=== PATIENT | female | born 1965 | race Caucasian/White ===

== ENCOUNTER 2017-04-21 11:30 | Inpatient (IN) | payer BC ==
[2017-05-04] MEDS ORDERED: Midazolam HCl 2 mg/2 ml Vial ONE (07:29)
[2017-05-04] MEDS ORDERED: Dexamethasone 4 mg/ml Vial ONE (07:29)
[2017-05-04] MEDS ORDERED: Fentanyl 100 MCG/2 ML VIAL ONE ×6 (07:29→14:28)
[2017-05-04] MEDS ORDERED: Ketorolac Tromethamine 30 MG/ML VIAL ONE (09:17)
[2017-05-04] MEDS ORDERED: Ondansetron HCl/PF 4 MG/2 ML Vial ONE (09:17)
[2017-05-04] MEDS ORDERED: PHENYLEPHRINE-NS 100 MCG/ML 10 ML SYRINGE ONE (09:17)
[2017-05-04] MEDS ORDERED: Propofol 200 MG/20 ML VIAL ONE (09:17)
[2017-05-04] MEDS ORDERED: Dexamethasone 20 MG/5 ML VIAL ONE (09:17)
[2017-05-04] MEDS ORDERED: Glycopyrrolate 0.2 MG/ML 5 ML SYRINGE ONE (09:17)
[2017-05-04] MEDS ORDERED: Meperidine HCl/PF 25 MG/ML VIAL SLOW IVP PRN (11:34)
[2017-05-04] MEDS ORDERED: Promethazine HCl 25 MG/ML VIAL SLOW IVP PRN (11:34)
[2017-05-04] MEDS ORDERED: D5 1/2 NS w/20 mEq KCL 1,000 ML ONE (13:24)
[2017-05-04] MEDS ORDERED: Dextrose 5% in Water 1,000 ML IV PRN (13:48)
[2017-05-04] MEDS ORDERED: Promethazine HCl 25 MG/ML VIAL IM PRN (13:48)
[2017-05-04] MEDS ORDERED: Dextrose 50% Abboject 50 ML SYRINGE SLOW IVP PRN (13:48)
[2017-05-04] MEDS ORDERED: Ondansetron HCl/PF 4 MG/2 ML Vial IVP PRN (13:48)
[2017-05-04] MEDS ORDERED: Fentanyl 100 MCG/2 ML VIAL SLOW IVP PRN (13:48)
[2017-05-04 16:56] VITALS: BMI 28.5
[2017-05-04] MEDS ORDERED: Pantoprazole 40 MG VIAL IVP SCH (17:30)
[2017-05-04] MEDS: Acetaminophen 1,000 MG in Premix Bag 1 BAG IVPB SCH ×3 (17:45→23:40)
[2017-05-04] MEDS: D5 1/2 NS w/20 mEq KCL 1,000 ML IV SCH (17:45)
[2017-05-04] MEDS: Enoxaparin Sodium 40 MG/0.4 ML SYRINGE SC SCH (20:17)
[2017-05-04] MEDS: Ketorolac Tromethamine 30 MG/ML VIAL IVP PRN (20:17)
[2017-05-04] MEDS: Fentanyl 100 MCG/2 ML VIAL SLOW IVP PRN ×2 (20:18→23:40)
[2017-05-05] MEDS: Mag-Al Plus 1200 MG/1200 MG/120 MG/30 ML UDCUP PO PRN (00:15)
[2017-05-05] MEDS: Ketorolac Tromethamine 30 MG/ML VIAL IVP PRN (03:41)
[2017-05-05] MEDS: Fentanyl 100 MCG/2 ML VIAL SLOW IVP PRN ×2 (03:42→06:43)
[2017-05-05 06:43] LABS: #Lymphocytes 1.1 thou/uL (1.20-3.40); #Monocytes 0.7 thou/uL (0.11-0.59); #Neutrophils 15.3 thou/uL (1.40-6.50); %Basophils 0.1 % (0.0-1.0); %Lymphocytes 6.5 % (21.0-51.0); Hematocrit 34.5 % (36.0-47.0); Red Blood Cell (RBC) Count 3.68 mill/uL (4.20-5.40); White Blood Cell (WBC) Count 17.1 thou/uL (4.8-10.8)
[2017-05-05] MEDS: Acetaminophen 1,000 MG in Premix Bag 1 BAG IVPB SCH (06:43)
[2017-05-05] MEDS: Loratadine 10 MG TAB PO SCH (06:50)
[2017-05-05 06:57] LABS: Anion Gap 9 mmol/L (10-20); BUN (Urea Nitrogen) 8 mg/dL (9.8-20.1); Calc. Creatinine Clearance 105 mL/min (70-130); Calcium 8.4 mg/dL (7.8-10.44); Carbon Dioxide 23 mmol/L (22-29); Chloride 110 mmol/L (98-107); Estimated GFR-MDRD 82
[2017-05-05] MEDS ORDERED: HYDROcodone/Acetaminophen 10/325 mg Tablet PO PRN (09:29)
[2017-05-05] MEDS ORDERED: traMADol HCl 50 MG TAB PO PRN (09:30)
[2017-05-05] MEDS ORDERED: D5 1/2 NS w/20 mEq KCL 1,000 ML IV SCH (09:31)
[2017-05-05] MEDS: Pantoprazole 40 MG VIAL IVP SCH (09:45)
[2017-05-05] MEDS: HYDROcodone/Acetaminophen 10/325 mg Tablet PO PRN ×4 (10:23→23:26)
--- NOTE | 2017-05-05 11:03 | PRG ---
DATE OF SERVICE: 05/05/2017 SUBJECTIVE: Postop day #1 left colectomy. Ms. Carrizales is complaining of 6/10 pain. She denies nause a. She is ambulatory. Her catheter is out and she has urinated on her own. OBJECTIVE: VITAL SIGNS: She is afebrile, pulse 76, respirations 18, and blood pressure 117/76. ABDOMEN: Soft, appropriately tender. Wounds are healing well, no evidence of infection. LABORATORY DATA: White blood cell count of 17, hemoglobin of 11, normal differential. Sodium 138, potassium 4.4, and creatinine 0.74. ASSESSMENT: Postoperative day #1 left colectomy. PLAN: Advance to full liquid diet this evening, add Elizabeth for pain, lower IV fluid rate.
[2017-05-05] MEDS: D5 1/2 NS w/20 mEq KCL 1,000 ML IV SCH ×2 (12:37)
[2017-05-05] MEDS: Enoxaparin Sodium 40 MG/0.4 ML SYRINGE SC SCH (20:14)
[2017-05-05] MEDS: diphenhydrAMINE HCl 25 MG CAP PO PRN (23:48)
[2017-05-06] MEDS: traMADol HCl 50 MG TAB PO PRN ×2 (02:40→08:34)
[2017-05-06] MEDS: Mag-Al Plus 1200 MG/1200 MG/120 MG/30 ML UDCUP PO PRN (05:44)
[2017-05-06] MEDS: HYDROcodone/Acetaminophen 10/325 mg Tablet PO PRN (05:44)
[2017-05-06] MEDS: Pantoprazole 40 MG VIAL IVP SCH (08:24)
[2017-05-06] MEDS: Loratadine 10 MG TAB PO SCH (08:24)
[2017-05-06 08:46] VITALS: BP 107/72; TEMP 98.2
[2017-05-06] MEDS: diphenhydrAMINE HCl 25 MG CAP PO PRN (10:32)
--- NOTE | 2017-05-06 11:59 | DIS ---
DATE OF ADMISSION: 05/04/2017 DATE OF DISCHARGE: 05/06/2017 ADMIT DIAGNOSIS: Chronic diverticulitis. DISCHARGE DIAGNOSIS: Chronic diverticulitis. PROCEDURE: Laparoscopic left colectomy by Dr. Whiting without complication. CONDITION AT DISCHARGE: Improved. STAFF: Dr. Bart Whiting. HOSPITAL COURSE: On 05/06/2017, patient tolerated full liquid diet, ambulatory, urinating on her ow n without difficulty. She is discharged to home. Prescriptions given for tramadol and Prichard, and s he will follow up in my office in 2 weeks.
--- NOTE | 2017-05-09 11:27 | OP ---
DATE OF PROCEDURE: 05/04/2017 PREOPERATIVE DIAGNOSIS: Chronic sigmoid diverticulitis. POSTOPERATIVE DIAGNOSIS: Chronic sigmoid diverticulitis. PROCEDURES: 1. Laparoscopic left colectomy with low pelvic anastomosis. 2. Laparoscopic mobilization of splenic flexure. SURGEON: Bart Whiting M.D. ANESTHESIA: General. ESTIMATED BLOOD LOSS: Minimal. COMPLICATIONS: None. SPECIMEN: Left colon. INDICATION: The patient is a 51-year-old female who presents with chronic pain from chronic diverti culitis. She underwent mechanical and antibiotic bowel prep. Risks and benefits of surgery were di scussed. She gave consent. TECHNIQUE: The patient was taken to the operating room and placed supine on the operating room tabl e. After general anesthetic was obtained, a Momin catheter was placed. The abdomen was prepped and draped in a sterile fashion. Left subcostal 5 mm Optiview trocar was placed in the usual fashion a nd high-flow pneumoperitoneum was obtained. A right lower quadrant 12 mm port was placed under dire ct visualization. A 5 mm camera port was placed to the right of the umbilicus. Suprapubic 5 mm por t was placed as well. The small bowel was rotated out of the pelvis. The peritoneum was opened on the medial aspect of the sigmoid colon at the base of the inferior mesenteric artery. The ureter wa s found through the window made in the mesentery and excluded from the dissection. The peritoneum w as taken all the way down into the pelvis and the upper rectum was mobilized. The colon was flipped over and the lateral attachments were taken down as well. The base of the inferior mesenteric esau ry was taken using a fire of the laparoscopic stapling device with a white load. The laparoscopic s tapler was fired across the upper rectum. The colon was flipped up and the mobilization of the sple loc flexure was performed. All lateral attachments were taken. The greater omentum was taken off t he transverse colon in the usual fashion. This allowed the upper left colon to reach down in the pe lvis under no tension. Location was found that had no ischemia to the colon. Incision was made in the left lower quadrant of approximately 3 cm in length. Muscle splitting incision was performed in to the abdomen. The Michael small wound retractor was placed. The left colon was able to be brought up through this wound and location was marked for the anvil placement. Colotomy was made distally and the 31 anvil was passed proximally. Stapler was fired across just proximal to the colotomy. Th e sharp pin on the anvil was then able to be manipulated out the antimesenteric surface of the colon above. The left colon specimen was sent to path for final diagnosis. The upper segment was droppe d back into the abdomen and high-flow pneumoperitoneum was reestablished. The upper left colon with the anvil in place was able to be dropped down into the pelvis under no tension. The base for the EEA was brought up through the anus and its sharp pin brought out on the antimesenteric surface of t he rectum below, connected to the sharp pin from above, and the stapler was tightened down and fired forming the anastomosis. The anastomosis was tested under saline and an air insufflation without e vidence of leakage. Two good rings of tissue were obtained in the stapler. All port sites were inf iltrated using local anesthetic. The 12-mm trocar at the right lower quadrant was closed using GraN ee needle and 0 Vicryl tie. All ports were removed under camera visualization. Pneumoperitoneum wa s let down. The muscle splitting incision in the left lower quadrant was closed anteriorly and post eriorly using PDS suture. This incision was irrigated using a liter of sterile solution and a Pulsa vac. The surgeon and faculty research assistant changed gown and gloves before the fascia was to be closed. All inci sions were irrigated and closed using 4-0 Monocryl and Dermabond. The patient was en route to [facility] in stable condition. All instrument counts, needle counts, and lap counts were correct.
--- NOTE | 2017-05-11 17:02 | HP ---
CHIEF COMPLAINT: Severe lower abdominal pain. HISTORY: The patient is a 51-year-old female one week status post laparoscopic sigmoid colectomy fo r recurrent diverticulitis. She says since surgery she has been feeling bad, but has been getting w orse. She is having low grade fevers, some nausea, no vomiting. Last meal was few bites at 9 a.m. She drank some water with CT. She just had a CT scan of the abdomen and pelvis showing a large zev stomotic leak. She is here for diversion. PAST MEDICAL HISTORY: Migraine headaches, esophageal reflux, low vitamin D, hyperlipidemia. PAST SURGICAL HISTORY: Tonsillectomy and total abdominal hysterectomy. MEDICATIONS: Zyrtec, Zantac, Estrace, Bentyl, Maxalt, alprazolam. SOCIAL HISTORY: She is , no tobacco or alcohol. ALLERGIES: She is allergic to CODEINE. PHYSICAL EXAMINATION: GENERAL: She is awake, alert, and looks very uncomfortable. HEENT: Mucous membranes are little bit dry. LUNGS: Clear. HEART: Regular rate and rhythm. ABDOMEN: Distended and tender in the lower abdomen. She has about a 6 cm incision in left lower qu adrant. No evidence of infection. She has a 2 cm incision on the right lower quadrant and another one at the umbilicus in the left upper quadrant. ASSESSMENT: Anastomotic leak with pelvic abscess. PLAN: Attempted laparoscopic drainage of pelvic abscess with diverting loop ileostomy. CONSENT: I have discussed the planned procedure as well as risk of bleeding, infection, injury to b owel, bladder, need to open. She understands and gives informed consent.
== END 2017-05-06 11:20 | disposition home or self-care (01) | DRG 331 ==
LOC: SURG A 05-04 07:00
PROVIDERS: ADMIT Surgery; ATTEND Surgery
PROC: 0DTG4ZZ Resection of Left Large Intestine, Percutaneous Endoscopic Approach (ICD-10-PCS; principal; 2017-05-04)
DX: K57.32 Diverticulitis of large intestine without perforation or abscess without bleeding (principal); Z88.5 Allergy status to narcotic agent; Z82.49 Family history of ischemic heart disease and other diseases of the circulatory system
CPT/HCPCS: 36415; 36416; 80048; 85025; 88307; C9113; J0131; J0694; J1100; J1650; J1885; J2250; J2405; J2704; J3010; J7050

== ENCOUNTER 2017-05-11 16:01 | Inpatient (IN) | payer BC ==
[2017-05-11] MEDS ORDERED: Promethazine HCl 25 MG/ML VIAL SLOW IVP SCH (16:15)
[2017-05-11] MEDS ORDERED: Promethazine HCl 25 MG/ML VIAL ONE (16:32)
[2017-05-11 17:01] LABS: #Eosinphils 0.1 thou/uL (0.0-0.7); #Monocytes 1.9 thou/uL (0.11-0.59); #Neutrophils 10.6 thou/uL (1.40-6.50); %Basophils 0.2 % (0.0-1.0); %Lymphocytes 13.8 % (21.0-51.0); %Monocytes 12.7 % (0.0-10.0); Hematocrit 31.7 % (36.0-47.0); Mean Platelet Volume 5.9 fL (7.4-10.4); Red Blood Cell (RBC) Count 3.36 mill/uL (4.20-5.40); White Blood Cell (WBC) Count 14.7 thou/uL (4.8-10.8)
[2017-05-11] MEDS ORDERED: Bupivacaine HCl 0.5%/Epinephrine 1:200,000/PF 30 ml Vial ONE (17:05)
[2017-05-11] MEDS ORDERED: Fentanyl 100 MCG/2 ML VIAL ONE ×2 (17:12→19:55)
[2017-05-11 17:20] LABS: ALT (SGPT) 43 U/L (8-55); AST (SGOT) 38 U/L (5-34); Alkaline Phosphatase 160 U/L (40-150); Anion Gap 14 mmol/L (10-20); BUN (Urea Nitrogen) 8 mg/dL (9.8-20.1); Bilirubin, Total 0.5 mg/dL (0.2-1.2); Calc. Creatinine Clearance 0 mL/min (70-130); Calcium 8.5 mg/dL (7.8-10.44); Carbon Dioxide 24 mmol/L (22-29); Chloride 101 mmol/L (98-107); Estimated GFR-MDRD 89; Globulin 3.2 g/dL (2.4-3.5); Protein, Total 6.3 g/dL (6.0-8.3)
[2017-05-11] MEDS ORDERED: Ondansetron HCl/PF 4 MG/2 ML Vial ONE (18:01)
[2017-05-11] MEDS ORDERED: PHENYLEPHRINE-NS 100 MCG/ML 10 ML SYRINGE ONE (18:01)
[2017-05-11] MEDS ORDERED: Succinylcholine Chloride 20 MG/ML 10 ml SYRINGE FS ONE (18:01)
[2017-05-11] MEDS ORDERED: Lidocaine 2% PF 10 ML AMP (For Epidural Use) ONE (18:01)
[2017-05-11] MEDS ORDERED: Propofol 200 MG/20 ML VIAL ONE (18:01)
[2017-05-11] MEDS ORDERED: Glycopyrrolate 0.2 MG/ML 5 ML SYRINGE ONE (18:01)
[2017-05-11] MEDS ORDERED: Midazolam HCl 2 mg/2 ml Vial ONE (18:21)
[2017-05-11] MEDS ORDERED: Ondansetron HCl/PF 4 MG/2 ML Vial IVP PRN ×2 (19:22→19:27)
[2017-05-11] MEDS ORDERED: Promethazine HCl 25 MG/ML VIAL IM PRN ×2 (19:22→19:27)
[2017-05-11] MEDS ORDERED: Zolpidem Tartrate 5 MG TAB PO PRN (19:27)
[2017-05-11] MEDS ORDERED: Naloxone HCl 0.4 mg/ml Vial IV PRN (19:27)
[2017-05-11] MEDS ORDERED: diphenhydrAMINE HCl 50 MG/ML 1 ML VIAL IVP PRN (19:27)
[2017-05-11] MEDS ORDERED: Fentanyl 5000 MCG/250 ML CADD IVPB PRN (19:27)
[2017-05-11] MEDS ORDERED: diphenhydrAMINE HCl 25 MG CAP PO PRN (19:27)
[2017-05-11] MEDS ORDERED: Promethazine HCl 25 MG/ML VIAL SLOW IVP PRN (19:27)
[2017-05-11] MEDS ORDERED: diphenhydrAMINE HCl 50 MG/ML 1 ML VIAL IM PRN (19:27)
[2017-05-11] MEDS ORDERED: Communication Order-Pharmacy FS SCH (19:30)
[2017-05-11] MEDS ORDERED: Fentanyl 20 MCG/ML 250 ML ONE (19:47)
[2017-05-11] MEDS: Famotidine/PF 20 mg/2ml Vial SLOW IVP SCH (21:01)
[2017-05-11] MEDS: Famotidine 20 MG TAB PO SCH (21:01)
[2017-05-11] MEDS: D5 1/2 NS w/20 mEq KCL 1,000 ML IV SCH (21:01)
[2017-05-11 21:24] VITALS: BMI 26.6
--- NOTE | 2017-05-11 22:24 | OP ---
PREOPERATIVE DIAGNOSIS: Anastomotic leak with pelvic abscess. SURGEON: Sarabjit Thomas M.D. PROCEDURE PERFORMED: Diagnostic laparoscopy, laparoscopic drainage of pelvic abscess with diverting loop ileostomy. INDICATIONS: A 51-year-old female who is 1-week status post laparoscopic sigmoid colon resection fo r recurrent diverticulitis. She had progressive pelvic pain and low grade fevers. She had a CT sca n this morning that showed an abscess with contrast extravasating into the abscess. FINDINGS: Mixed abscess both along the left gutter and pelvis containing thick purulent fluid. Cul tures were obtained. PROCEDURE IN DETAIL: After informed consent was obtained, the patient was taken to the operating ro om and given general endotracheal anesthesia. She was placed in the supine position. Her abdomen w as prepped and draped in the usual fashion. Local anesthesia infiltrated subcutaneously and deep an d a 5-mm incision was performed in the left upper quadrant. Veress needle inserted. Drop test perf ormed. Pneumoperitoneum was created to a volume of 2 liters of carbon dioxide. Utilizing a bladele ss 5-mm trocar and 0-degree laparoscope, direct visual entry in the abdominal cavity was performed. Pneumoperitoneum was created to a pressure of 15 mmHg. The patient placed in Trendelenburg positio n and 2 other 5-mm ports were placed, one right lower quadrant, one suprapubic. The adhesions were taken down along the left lower quadrant revealing a yellow creamy purulent fluid, which was aspirat ed and sent for culture. The cavity was completely unroofed and irrigated and irrigation fluid john milagros. A definite anastomosis could not be defined as there was quite a bit of inflammation in the ar ea. The small bowel was run to define the terminal ileum. At this point, a 19-Bulgarian round drain w as placed along the left gutter and placed into the pelvis, brought out through a stab wound on left side, this was sutured in place. Then the terminal ileum was grasped with the atraumatic grasper a nd brought up to the abdominal wall. The skin incision was enlarged and the muscle and subcutaneous divided to allow prolapse of the ileum and ileal loop. The ileal loop was then secured to the ante rior fascia with interrupted 3-0 Vicryls. Prior to opening the bowel, the two 5-mm ports were close d with an interrupted 4-0 Rapide. Dermabond applied. Then the bowel loop was divided transversely and matured with interrupted 3-0 Vicryl suture. A wafer applied then the bag applied. The patient tolerated the procedure well and transferred to recovery in good condition. Sponge and needle count verified correct x2.
[2017-05-11] MEDS: Piperacillin/Tazobactam 3.375 GM in Sodium Chloride 0.9% 100 ML IVPB SCH (23:31)
[2017-05-11] MEDS: Ketorolac Tromethamine 30 MG/ML VIAL IVP SCH (23:31)
[2017-05-11] MEDS: Acetaminophen 1,000 MG in Premix Bag 1 BAG IVPB SCH (23:31)
[2017-05-11] MEDS: Ondansetron HCl/PF 4 MG/2 ML Vial IVP PRN (23:31)
[2017-05-12] MEDS: Ketorolac Tromethamine 30 MG/ML VIAL IVP SCH ×4 (04:53→23:58)
[2017-05-12] MEDS: Acetaminophen 1,000 MG in Premix Bag 1 BAG IVPB SCH ×3 (04:53→17:50)
[2017-05-12] MEDS: D5 1/2 NS w/20 mEq KCL 1,000 ML IV SCH ×3 (04:53→21:25)
[2017-05-12] MEDS: Piperacillin/Tazobactam 3.375 GM in Sodium Chloride 0.9% 100 ML IVPB SCH ×4 (04:53→23:58)
[2017-05-12 05:17] LABS: #Lymphocytes 1.2 thou/uL (1.20-3.40); #Monocytes 1.2 thou/uL (0.11-0.59); #Neutrophils 8.9 thou/uL (1.40-6.50); %Basophils 0.3 % (0.0-1.0); %Eosinophils 0.3 % (0.0-10.0); %Lymphocytes 10.1 % (21.0-51.0); %Monocytes 10.4 % (0.0-10.0); Hematocrit 34.8 % (36.0-47.0); Mean Platelet Volume 6.5 fL (7.4-10.4); Red Blood Cell (RBC) Count 3.66 mill/uL (4.20-5.40); White Blood Cell (WBC) Count 11.3 thou/uL (4.8-10.8)
[2017-05-12 05:34] LABS: Anion Gap 12 mmol/L (10-20); BUN (Urea Nitrogen) 7 mg/dL (9.8-20.1); Calc. Creatinine Clearance 108 mL/min (70-130); Calcium 7.8 mg/dL (7.8-10.44); Carbon Dioxide 21 mmol/L (22-29); Chloride 104 mmol/L (98-107); Estimated GFR-MDRD 86
[2017-05-12] MEDS: Famotidine/PF 20 mg/2ml Vial SLOW IVP SCH ×2 (08:21→21:12)
[2017-05-12] MEDS ORDERED: Enoxaparin Sodium 40 MG/0.4 ML SYRINGE SC SCH (09:00)
[2017-05-12] MEDS ORDERED: Sodium Chloride 0.9% 1,000 ML IV SCH (09:30)
[2017-05-12] MEDS: Famotidine 20 MG TAB PO SCH ×2 (09:52→21:13)
[2017-05-12] MEDS: Enoxaparin Sodium 40 MG/0.4 ML SYRINGE SC SCH (10:16)
--- NOTE | 2017-05-12 10:41 | PRG ---
DATE OF SERVICE: 05/12/2017 The patient is postoperative day 1, drainage of pelvic abscess with diverting loop ileostomy. She i s having a lot of pain. The pain is about a 7/10, but she is not using her PRODUCT SUPPORT REPRESENTATIVE because her blood pr essure is low. She does feel a little lightheaded when she sits or stands up. She denies nausea. PHYSICAL EXAMINATION: VITAL SIGNS: Temperature is 98.7, pulse 102, blood pressure 97/64. GENERAL: She is awake, looks a little fatigued. HEENT: Otherwise unremarkable. LUNGS: Lungs are clear. HEART: Regular rate and rhythm. ABDOMEN: The abdomen is a little bit distended. The ostomy is viable and looks healthy. There is some serosanguinous fluid in the bag, a little bit of air. The incision is otherwise okay. : Her Momin put out a liter. She has had 320 mL out her drain. LABORATORY: White count is 11.3, down from 14, H\T\H 11 and 34, platelet count 464. Electrolytes s how a low CO2 of 21, her BUN is 7, creatinine 0.7, glucose 157. Microbiology; there are gram negative rods and non-hemolytic Streptococcus in the gram stain. ASSESSMENT: 1. Volume depletion. 2. Ileus. PLAN: Fluid bolus, ambulate. She can have ice chips.
[2017-05-12] MEDS: Ondansetron HCl/PF 4 MG/2 ML Vial IVP PRN (14:11)
[2017-05-12] MEDS: Promethazine HCl 25 MG/ML VIAL IM PRN (14:17)
[2017-05-13 04:55] LABS: #Eosinphils 0.1 thou/uL (0.0-0.7); #Lymphocytes 1.5 thou/uL (1.20-3.40); #Monocytes 1.2 thou/uL (0.11-0.59); #Neutrophils 10.3 thou/uL (1.40-6.50); %Basophils 0.2 % (0.0-1.0); %Eosinophils 0.9 % (0.0-10.0); %Lymphocytes 11.2 % (21.0-51.0); %Monocytes 9.1 % (0.0-10.0); Hematocrit 30.5 % (36.0-47.0); Mean Platelet Volume 6.4 fL (7.4-10.4); Red Blood Cell (RBC) Count 3.17 mill/uL (4.20-5.40); White Blood Cell (WBC) Count 13.1 thou/uL (4.8-10.8)
[2017-05-13 05:20] LABS: Anion Gap 10 mmol/L (10-20); BUN (Urea Nitrogen) 10 mg/dL (9.8-20.1); Calc. Creatinine Clearance 110 mL/min (70-130); Calcium 7.6 mg/dL (7.8-10.44); Carbon Dioxide 23 mmol/L (22-29); Chloride 107 mmol/L (98-107); Estimated GFR-MDRD 88
[2017-05-13] MEDS: Piperacillin/Tazobactam 3.375 GM in Sodium Chloride 0.9% 100 ML IVPB SCH ×4 (06:23→22:55)
[2017-05-13] MEDS: D5 1/2 NS w/20 mEq KCL 1,000 ML IV SCH ×3 (06:23→17:27)
[2017-05-13] MEDS: Ketorolac Tromethamine 30 MG/ML VIAL IVP SCH ×3 (06:23→17:26)
[2017-05-13] MEDS: Famotidine/PF 20 mg/2ml Vial SLOW IVP SCH ×2 (07:49→19:41)
[2017-05-13] MEDS: Enoxaparin Sodium 40 MG/0.4 ML SYRINGE SC SCH (07:50)
[2017-05-13] MEDS: Famotidine 20 MG TAB PO SCH (09:16)
[2017-05-13] MEDS: Promethazine HCl 25 MG/ML VIAL IM PRN (19:41)
[2017-05-14] MEDS: Famotidine 20 MG TAB PO SCH ×3 (02:25→23:31)
[2017-05-14] MEDS: Ketorolac Tromethamine 30 MG/ML VIAL IVP SCH (02:25)
[2017-05-14] MEDS: D5 1/2 NS w/20 mEq KCL 1,000 ML IV SCH ×3 (04:11→23:33)
[2017-05-14] MEDS: Piperacillin/Tazobactam 3.375 GM in Sodium Chloride 0.9% 100 ML IVPB SCH ×3 (06:15→19:18)
[2017-05-14] MEDS: Promethazine HCl 25 MG/ML VIAL IM PRN ×2 (09:19→22:01)
[2017-05-14] MEDS: Famotidine/PF 20 mg/2ml Vial SLOW IVP SCH ×2 (09:24→20:41)
[2017-05-14] MEDS: Enoxaparin Sodium 40 MG/0.4 ML SYRINGE SC SCH (09:44)
[2017-05-14] MEDS: Ondansetron HCl/PF 4 MG/2 ML Vial IVP PRN (11:42)
[2017-05-14] MEDS ORDERED: Sodium Chloride 0.9% 1,000 ML IV SCH (12:15)
--- NOTE | 2017-05-14 12:18 | OP ---
PREOPERATIVE DIAGNOSES: Ileus, malnutrition. SURGEON: Sarabjit Thomas M.D. PROCEDURE PERFORMED: Right subclavian central line placement. INDICATIONS: The patient is a 51-year-old female who has been n.p.o. for over a week after having s urgery for diverticulitis, complicated bile leak. She needs IV access for nutrition. FINDINGS: Arterial stick left subclavian. Good backflow of venous blood, right subclavian. J-wire threaded easily. DESCRIPTION OF THE PROCEDURE: After informed consent was obtained, the patient was taken to OR, kleber angela in some Trendelenburg position. Her skin was prepped and draped in the usual fashion. Local an esthesia infiltrated subcutaneously and deep. Introducer needle inserted. Arterial stick hit on th e left side, moved to the right side. Good backflow of venous blood. J-wire threaded easily. The skin incised. The dilator used. Pre-flushed triple lumen catheter inserted over the wire. The wir e was removed. Each of the ports aspirated. Good backflow of venous blood, flushed with saline. S utured in place with interrupted 3-0 silk. Sterile bandage applied. The patient tolerated the proc edure well. Chest x-ray obtained.
--- NOTE | 2017-05-14 14:13 | RAD ---
CHEST 1 VIEW: Date: 05/14/17 HISTORY: Central line placement. COMPARISON: None. FINDINGS: Central venous catheter is in place with tip in the inferior SVC. There are lingular and right middl e lobe linear opacities. There are dilated loops of bowel in the upper abdomen. Radiopacities project over the upper abdomen. IMPRESSION: 1. Central venous catheter tip at the cavoatrial junction. 2. Linear opacities both lungs may represent scarring or atelectasis. 3. Granuloma right upper lobe. 4. Dilated loops of bowel in the upper abdomen with radiopacities projecting over the upper abdomen . Recommend correlation with recent CT examination. If there are none, follow-up CT is recommended. POS: LOKI
[2017-05-14] MEDS ORDERED: Acetaminophen 1,000 MG in Premix Bag 1 BAG IVPB PRN (16:03)
[2017-05-14] MEDS ORDERED: FLU VACC QS2017-18 36 mo. & older 0.5 ML SYRINGE IM ONE (16:45)
[2017-05-14] MEDS: Multivitamins, Adult 10 ML, Multitrace-5 5 ML in D30W-AA 10% with Lytes 2,000 ML, Fat E... IV SCH (22:02)
[2017-05-15] MEDS: Piperacillin/Tazobactam 3.375 GM in Sodium Chloride 0.9% 100 ML IVPB SCH ×4 (00:17→18:21)
[2017-05-15 05:12] LABS: #Basophils 0.1 thou/uL (0.0-0.2); #Eosinphils 0.1 thou/uL (0.0-0.7); #Lymphocytes 2.1 thou/uL (1.20-3.40); #Monocytes 1.3 thou/uL (0.11-0.59); #Neutrophils 7.5 thou/uL (1.40-6.50); %Basophils 0.5 % (0.0-1.0); %Eosinophils 0.6 % (0.0-10.0); %Lymphocytes 19.4 % (21.0-51.0); %Monocytes 11.5 % (0.0-10.0); Hematocrit 27.9 % (36.0-47.0); Red Blood Cell (RBC) Count 2.95 mill/uL (4.20-5.40); White Blood Cell (WBC) Count 10.9 thou/uL (4.8-10.8)
[2017-05-15 05:34] LABS: Anion Gap 9 mmol/L (10-20); BUN (Urea Nitrogen) 4 mg/dL (9.8-20.1); Calc. Creatinine Clearance 124 mL/min (70-130); Carbon Dioxide 25 mmol/L (22-29); Chloride 109 mmol/L (98-107); Estimated GFR-MDRD Greater than 90
[2017-05-15] MEDS: D5 1/2 NS w/20 mEq KCL 1,000 ML IV SCH ×2 (08:07→09:24)
--- NOTE | 2017-05-15 08:18 | PRG ---
DATE OF SERVICE: 05/15/2017 SUBJECTIVE: Ms. Carrizales has no more nausea. She has been ambulatory this morning. She is urinating on her own without the Momin catheter. OBJECTIVE: VITAL SIGNS: T-max 99.8, pulse 101, respirations 16, blood pressure 108/74. Urine output is adequa te, ostomy output 550 for the day. ABDOMEN: Soft. Wounds are healing well. Drain output is purulent. She has some stool in her bag. Her ostomy mucosa is pink. LABORATORY DATA: White blood cell count is 10, hemoglobin 9, platelets are 526, creatinine is 0.62. ASSESSMENT: Status post washout, drain placement, ileostomy for anastomotic leak. PLAN: Continue TPN until more bowel function, probably we are going to take another 48-72 hours. E ncouraged ambulation. Continue Zosyn.
[2017-05-15] MEDS: Enoxaparin Sodium 40 MG/0.4 ML SYRINGE SC SCH (09:23)
[2017-05-15] MEDS: Famotidine/PF 20 mg/2ml Vial SLOW IVP SCH ×2 (09:23→21:44)
[2017-05-15] MEDS: Famotidine 20 MG TAB PO SCH (09:43)
[2017-05-15] MEDS: Multivitamins, Adult 10 ML, Multitrace-5 5 ML in D30W-AA 10% with Lytes 2,000 ML, Fat E... IV SCH (22:00)
[2017-05-16] MEDS: Piperacillin/Tazobactam 3.375 GM in Sodium Chloride 0.9% 100 ML IVPB SCH ×5 (00:01→23:18)
[2017-05-16] MEDS: Famotidine 20 MG TAB PO SCH ×3 (05:41→20:04)
[2017-05-16] MEDS: D5 1/2 NS w/20 mEq KCL 1,000 ML IV SCH ×3 (05:42→17:49)
[2017-05-16] MEDS: Famotidine/PF 20 mg/2ml Vial SLOW IVP SCH ×2 (09:53→20:03)
[2017-05-16] MEDS: Enoxaparin Sodium 40 MG/0.4 ML SYRINGE SC SCH (10:03)
[2017-05-16] MEDS ORDERED: Clopidogrel Bisulfate 75 MG TAB ONE (10:10)
[2017-05-16] MEDS ORDERED: Fluconazole In NaCl,Iso-Osm 200 MG in Premix Bag 1 BAG IVPB SCH ×2 (12:00)
[2017-05-16] MEDS ORDERED: Loratadine 10 MG TAB PO SCH (13:30)
[2017-05-16] MEDS: Acetaminophen 1,000 MG in Premix Bag 1 BAG IVPB PRN ×2 (14:02→20:03)
--- NOTE | 2017-05-16 14:19 | PQF ---
Date: 05-16-17 ATTN: DR. JUSTIN GOMEZ Please exercise your independent, professional judgment in responding to the clarification form. Clinical indicators are provided on the bottom of this form for your review Please check appropriate box(s): [ ] Protein Calorie Malnutrition: [ ] Mild [ ] Moderate [ ] Severe [ ] Other Malnutrition (please specify) __ [ ] Cachexia [ ] Other diagnosis [ ] Unable to determine In addition, please specify: Present on Admission (POA): [ ] Yes [ ] No [ ] Unable to determine CLINICAL INDICATORS - SIGNS / SYMPTOMS / LABS BMI: 26.6 ALBUMIN 05-11-17: 3.[address] MURRAY 05-14-17: ILEUS, MALNUTRITION OP NOTE DR. MURRAY 05-14-17: THE PATIENT IS A 51 YEAR OLD FEMALE WHO HAS BEEN NPO FOR OVER A WEEK AFTER HAVING SURGERY FOR DIVERTICULITIS, COMPLICATED BILE LEAK, SHE NEEDS IV ACCESS FOR NUTRITION. RISK FACTORS: OP NOTE DR. MURRAY 05-14-17: THE PATIENT IS A 51 YEAR OLD FEMALE WHO HAS BEEN NPO FOR OVER A WEEK AFTER HAVING SURGERY FOR DIVERTICULITIS, COMPLICATED BILE LEAK, SHE NEEDS IV ACCESS FOR NUTRITION. TREATMENT: *OP NOTE DR. MURRAY 05-14-17: THE PATIENT IS A 51 YEAR OLD FEMALE WHO HAS BEEN NPO FOR OVER A WEEK AFTER HAVING SURGERY FOR DIVERTICULITIS, COMPLICATED BILE LEAK, SHE NEEDS IV ACCESS FOR NUTRITION. *PN DR. GOMEZ 05-15-17: CONTINUE TPN UNTIL MORE BOWEL FUNCTION (This form is maintained as a part of the permanent medical record) 2014 [employer] All Rights Reserved [email or web address] [email or web address] Office: [phone] [facility]
[2017-05-16] MEDS: Multivitamins, Adult 10 ML, Multitrace-5 5 ML in D30W-AA 10% with Lytes 2,000 ML, Fat E... IV SCH (21:53)
[2017-05-17] MEDS: D5 1/2 NS w/20 mEq KCL 1,000 ML IV SCH ×3 (03:30→18:53)
[2017-05-17] MEDS: Acetaminophen 1,000 MG in Premix Bag 1 BAG IVPB PRN ×2 (04:30→10:37)
[2017-05-17] MEDS: Piperacillin/Tazobactam 3.375 GM in Sodium Chloride 0.9% 100 ML IVPB SCH ×4 (06:06→23:32)
[2017-05-17] MEDS: Famotidine/PF 20 mg/2ml Vial SLOW IVP SCH ×2 (08:31→20:51)
[2017-05-17] MEDS: Loratadine 10 MG TAB PO SCH (08:31)
[2017-05-17] MEDS: Enoxaparin Sodium 40 MG/0.4 ML SYRINGE SC SCH (09:11)
[2017-05-17] MEDS: Famotidine 20 MG TAB PO SCH ×2 (09:45→20:51)
--- NOTE | 2017-05-17 10:46 | PRG ---
DATE OF SERVICE: 05/17/2017 SUBJECTIVE: Ms. Carrizales is doing well. She has less abdominal pain and bloating, no nausea. PHYSICAL EXAMINATION: VITAL SIGNS: She is afebrile. Her pulse is down to 82 this morning, blood pressure is 113/79, stoo l 120. ABDOMEN: All wounds are healing well. She does have some bowel sounds. She has stool and air in h er ostomy bag. ASSESSMENT: History of left colectomy for chronic diverticulitis complicated by anastomotic leak, n ow status post washout, drain placement, and ileostomy. PLAN: Will allow for clear liquids today. Her pulse is trending down. Continue to encourage mobil ization.
[2017-05-17] MEDS ORDERED: Acetaminophen 1,000 MG in Premix Bag 1 BAG IVPB PRN (17:16)
[2017-05-17] MEDS: Multivitamins, Adult 10 ML, Multitrace-5 5 ML in D30W-AA 10% with Lytes 2,000 ML, Fat E... IV SCH (21:55)
[2017-05-18] MEDS: D5 1/2 NS w/20 mEq KCL 1,000 ML IV SCH ×3 (02:09→19:21)
[2017-05-18 04:22] LABS: ALT (SGPT) 30 U/L (8-55); AST (SGOT) 25 U/L (5-34); Alkaline Phosphatase 136 U/L (40-150); Anion Gap 10 mmol/L (10-20); BUN (Urea Nitrogen) 12 mg/dL (9.8-20.1); Bilirubin, Total 0.5 mg/dL (0.2-1.2); Calc. Creatinine Clearance 130 mL/min (70-130); Calcium 8.4 mg/dL (7.8-10.44); Carbon Dioxide 26 mmol/L (22-29); Chloride 103 mmol/L (98-107); Estimated GFR-MDRD Greater than 90; Globulin 3.3 g/dL (2.4-3.5); Phosphorus 3.1 mg/dL (2.3-4.7); Protein, Total 6.1 g/dL (6.0-8.3)
[2017-05-18] MEDS: Piperacillin/Tazobactam 3.375 GM in Sodium Chloride 0.9% 100 ML IVPB SCH ×4 (06:23→23:32)
[2017-05-18] MEDS: Loratadine 10 MG TAB PO SCH (09:27)
[2017-05-18] MEDS: Famotidine 20 MG TAB PO SCH ×2 (09:27→20:27)
[2017-05-18] MEDS: Famotidine/PF 20 mg/2ml Vial SLOW IVP SCH (09:27)
[2017-05-18] MEDS ORDERED: HYDROcodone/Acetaminophen 10/325 mg Tablet PO PRN (09:40)
[2017-05-18] MEDS ORDERED: Fentanyl 100 MCG/2 ML VIAL SLOW IVP PRN ×2 (09:41)
--- NOTE | 2017-05-18 09:56 | PRG ---
DATE OF SERVICE: 05/18/2017 Ms. Carrizales is doing well, tolerated clear liquid. She has no nausea. She is ambulatory. VITAL SIGNS: She is afebrile. Her pulse is trending down into the 80s-100 now instead of 100-115, blood pressure is stable. Good urine output ostomy did put out much yesterday. There is some mucusy more solid stool in her b ag this morning. She does have active bowel sounds. Her wounds are healing well. Her IVETTE drain is becoming more serous. ASSESSMENT: Postop laparoscopic washout, drain placement, ileostomy for anastomotic leak. PLAN: Advance to full liquid diet today. Continue TPN today. If tolerates fulls will discontinue t hat tomorrow. Restart oral pain control.
[2017-05-18] MEDS: Enoxaparin Sodium 40 MG/0.4 ML SYRINGE SC SCH (10:36)
[2017-05-18] MEDS: HYDROcodone/Acetaminophen 10/325 mg Tablet PO PRN ×3 (11:44→22:16)
--- NOTE | 2017-05-18 12:45 | PQF ---
DATE: 05-18-17 ATTN: DR. JUSTIN GOMEZ Please exercise your independent, professional judgment in responding to the clarification form. Clinical indicators are provided on the bottom of this form for your review Please check appropriate box(s): [ ] Sepsis due to: [ ] Localized infection without sepsis [ ] Other diagnosis [ ] Unable to determine In addition, please specify: Present on Admission (POA): [ ] Yes [ ] No [ ] Unable to determine For continuity of documentation, please document condition throughout progress notes and discharge summary. Thank You. CLINICAL INDICATORS - SIGNS / SYMPTOMS / LABS WBC: 05-11-17: 14.7 GLUCOSE: 05-12-17: 157 TEMP: 05-14-17: 99.9 05-15-17: 99.8, 100.1 PULSE: 05-14-17: 110 05-15-17: 109 05-16-17: 115 05-11-17: OP NOTE: FINDINGS- MIXED ABSCESS BOTH ALONG THE LEFT GUTTER AND PELVIS CONTAINING THICK PURULENT FLUID. CULTURES OBTAINED. CULTURE 05-11-17- E COLI ANAEROBIC GRAM NEGATIVE PRINCESS RISK FACTORS: 05-11-17: OP NOTE: FINDINGS- MIXED ABSCESS BOTH ALONG THE LEFT GUTTER AND PELVIS CONTAINING THICK PURULENT FLUID. CULTURES OBTAINED. H&P: RECURRENT DIVERTICULITIS -ANASTOMOTIC LEAK WITH PELVIC ABSCESS TREATMENTS: *PELVIC ABSCESS CULTURES 05-11-17: E COLI ANAEROBIC GRAM NEGATIVE PRINCESS *DAILY CBC'S *(05-11-17) ZOSYN, LEVAQUIN ( 05-13-17) (This form is maintained as a part of the permanent medical record) [employer]. All Rights Reserved [email or web address] [email or web address] Office: [phone] [facility]
[2017-05-18] MEDS: Multivitamins, Adult 10 ML, Multitrace-5 5 ML in D30W-AA 10% with Lytes 2,000 ML, Fat E... IV SCH (22:36)
[2017-05-19] MEDS: HYDROcodone/Acetaminophen 10/325 mg Tablet PO PRN ×6 (02:21→22:39)
[2017-05-19] MEDS: D5 1/2 NS w/20 mEq KCL 1,000 ML IV SCH (03:13)
[2017-05-19] MEDS: Piperacillin/Tazobactam 3.375 GM in Sodium Chloride 0.9% 100 ML IVPB SCH ×4 (05:30→23:39)
[2017-05-19 06:23] LABS: ALT (SGPT) 30 U/L (8-55); AST (SGOT) 33 U/L (5-34); Alkaline Phosphatase 151 U/L (40-150); Anion Gap 8 mmol/L (10-20); BUN (Urea Nitrogen) 14 mg/dL (9.8-20.1); Bilirubin, Total 0.4 mg/dL (0.2-1.2); Calc. Creatinine Clearance 124 mL/min (70-130); Calcium 8.3 mg/dL (7.8-10.44); Carbon Dioxide 28 mmol/L (22-29); Chloride 106 mmol/L (98-107); Estimated GFR-MDRD Greater than 90; Globulin 3.2 g/dL (2.4-3.5); Magnesium 2.1 mg/dL (1.6-2.6); Phosphorus 3.4 mg/dL (2.3-4.7)
[2017-05-19] MEDS ORDERED: Milk Of Magnesia 30 ML UDCUP PO ONE (07:38)
--- NOTE | 2017-05-19 08:10 | PRG ---
DATE OF SERVICE: 05/19/2017 SUBJECTIVE: Ms. Carrizales is doing well. She is tolerating the full liquid diet. She is ambulatory. Her pain is better controlled. PHYSICAL EXAMINATION: VITAL SIGNS: Afebrile, vital signs are stable. ABDOMEN: Soft. She is leasing machine tender in the area of the large incision in the left lower quadrant, b ut there is no evidence of wound infection. She has a small amount of stool in her bag. ASSESSMENT: Resolving ileus status post anastomotic leak after left colectomy for diverticulitis. PLAN: Advance diet today and discontinue TPN and continue antibiotics. We will give one dose of mi lk of magnesia now, continue ostomy teaching, likely discharge home tomorrow.
[2017-05-19] MEDS: Loratadine 10 MG TAB PO SCH (09:24)
[2017-05-19] MEDS: Famotidine 20 MG TAB PO SCH ×2 (09:24→20:46)
[2017-05-19] MEDS: Enoxaparin Sodium 40 MG/0.4 ML SYRINGE SC SCH ×2 (09:26→11:10)
[2017-05-19 23:49] VITALS: TEMP 98.5
[2017-05-20] MEDS: HYDROcodone/Acetaminophen 10/325 mg Tablet PO PRN ×2 (03:05→07:02)
[2017-05-20] MEDS: Piperacillin/Tazobactam 3.375 GM in Sodium Chloride 0.9% 100 ML IVPB SCH (06:08)
[2017-05-20 06:46] LABS: ALT (SGPT) 30 U/L (8-55); AST (SGOT) 35 U/L (5-34); Alkaline Phosphatase 175 U/L (40-150); Anion Gap 11 mmol/L (10-20); BUN (Urea Nitrogen) 11 mg/dL (9.8-20.1); Bilirubin, Total 0.6 mg/dL (0.2-1.2); Calc. Creatinine Clearance 113 mL/min (70-130); Calcium 8.4 mg/dL (7.8-10.44); Carbon Dioxide 27 mmol/L (22-29); Chloride 101 mmol/L (98-107); Estimated GFR-MDRD Greater than 90; Globulin 3.4 g/dL (2.4-3.5); Phosphorus 3.4 mg/dL (2.3-4.7); Protein, Total 6.2 g/dL (6.0-8.3)
--- NOTE | 2017-05-20 08:25 | DIS ---
DATE OF ADMISSION: 05/11/2017 DATE OF DISCHARGE: 05/20/2017 ADMISSION DIAGNOSES: 1. Status post low anterior resection for chronic diverticulitis complicated by anastomotic leak. 2. Pelvic abscess. POSTOPERATIVE DIAGNOSES: 1. Status post low anterior resection for chronic diverticulitis complicated by anastomotic leak. 2. Pelvic abscess. PROCEDURES: Laparoscopic pelvic washout, drain placement and diverting loop ileostomy by Dr. Thomas without complication. HOSPITAL COURSE: The patient was admitted when she was found to have postop pelvic abscess. Dr. Valentine quinteros took her to the operating room. She underwent washout and ileostomy. Postop, she had slight de lay in return of bowel function, so a central line and TPN was started, slowly her diet was advanced . Slowly, her tachycardia and fevers resolved. She grew out Enterococcus, Klebsiella and E. coli a nd her abdominal aspirate. On the day of discharge, she is doing well. She is tolerating regular d iet. She is to be discharged to home. Ostomy teaching has been performed. Prescriptions for Augme ntin and Levaquin were sent to her pharmacy. Already, she has prescription for pain medicine and na usea medicine at home. Hand written prescription for Lomotil and ostomy supplies given to the meghan munguia. She will follow up with me in 1 week.
[2017-05-20 08:29] VITALS: BP 120/82
[2017-05-20] MEDS: Famotidine 20 MG TAB PO SCH (09:13)
[2017-05-20] MEDS: Enoxaparin Sodium 40 MG/0.4 ML SYRINGE SC SCH (09:13)
[2017-05-20] MEDS: Loratadine 10 MG TAB PO SCH (09:13)
== END 2017-05-20 10:40 | disposition home or self-care (01) | DRG 857 ==
LOC: SDC 16:01 → SURG B 19:22
PROVIDERS: ADMIT Surgery; ATTEND Surgery
PROC: 0D1B4Z4 Bypass Ileum to Cutaneous, Percutaneous Endoscopic Approach (ICD-10-PCS; principal; 2017-05-11)
PROC: 0W9J40Z Drainage of Pelvic Cavity with Drainage Device, Percutaneous Endoscopic Approach (ICD-10-PCS; 2017-05-11)
PROC: 05H533Z Insertion of Infusion Device into Right Subclavian Vein, Percutaneous Approach (ICD-10-PCS; 2017-05-14)
DX: T81.4XXA Infection following a procedure, initial encounter (principal); K91.30 Postprocedural intestinal obstruction, unspecified as to partial versus complete; E46 Unspecified protein-calorie malnutrition; K91.89 Other postprocedural complications and disorders of digestive system; B96.1 Klebsiella pneumoniae [K. pneumoniae] as the cause of diseases classified elsewhere; Z87.19 Personal history of other diseases of the digestive system; Z90.49 Acquired absence of other specified parts of digestive tract; B95.2 Enterococcus as the cause of diseases classified elsewhere; B96.20 Unspecified Escherichia coli [E. coli] as the cause of diseases classified elsewhere; K68.11 Postprocedural retroperitoneal abscess; N73.9 Female pelvic inflammatory disease, unspecified; J30.9 Allergic rhinitis, unspecified; G43.909 Migraine, unspecified, not intractable, without status migrainosus; K21.9 Gastro-esophageal reflux disease without esophagitis; M85.80 Other specified disorders of bone density and structure, unspecified site; E55.9 Vitamin D deficiency, unspecified; E78.5 Hyperlipidemia, unspecified; Z88.5 Allergy status to narcotic agent; Z68.26 Body mass index [BMI] 26.0-26.9, adult
CPT/HCPCS: 36415; 36416; 71010; 80048; 80053; 83735; 84100; 85025; 87070; 87077; 87186; 87205; 90471; 90682; G0008; J0131; J0670; J0694; J1450; J1650; J1885; J1956; J2001; J2250; J2270; J2405; J2543; J2550; J2704; J3010; J7050; Q2036; S0028

== ENCOUNTER 2017-06-26 08:37 | Outpatient (CLI) | payer BC ==
--- NOTE | 2017-06-26 14:02 | RAD ---
BARIUM ENEMA SOLID COLUMN: Date: 06/26/17 HISTORY: 50-year-old female with diverticulitis. Status post chronic resection and ileostomy. Exam requested to evaluate the sigmoid anastomosis leak prior to reversal of ileostomy. FINDINGS: A contrast enema was performed under fluoroscopy with Gastrografin. There is unobstructed retrograde flow of contrast through the colon and into the cecum and appendix. There is contrast opacification in the left lower quadrant from the anastomosis. There are a few sca ttered colonic diverticula. Contrast is also seen in a portion of the terminal ileum and moving into the ileostomy in the right lower quadrant. IMPRESSION: 1. Anastomotic leak of the sigmoid colon in the left lower quadrant. 2. Colonic diverticulosis. 3. Patent right lower quadrant ileostomy. Discussed over the telephone with Dr. Whiting at 1038 hours. CODE CR. POS: ALEJANDRO
[2017-06-26] MEDS ORDERED: MD-Gastroview 120 ML BOT ONE (15:51)
== END 2017-06-26 08:38 | disposition home or self-care (01) ==
LOC: RAD 08:37
PROVIDERS: ATTEND Surgery
DX: K94.13 Enterostomy malfunction (principal); K57.30 Diverticulosis of large intestine without perforation or abscess without bleeding
CPT/HCPCS: 74270

== ENCOUNTER 2017-07-27 09:00 | Outpatient (CLI) | payer BC ==
--- NOTE | 2017-07-27 12:27 | CT ---
CT PELVIS WITH IV CONTRAST: 07/27/2017 HISTORY: Ileostomy dysfunction. Possible leak. History of hysterectomy as well as colon resection. COMPARISON: Gastrografin enema on 06/26/2017. FINDINGS: There is contrast seen in the rectum and proximal sigmoid colon; however, no contrast is seen within the visualized lower descending colon. There is contrast seen in the visualized cecum and proximal a scending colon. The exact etiology for contrast in the colon is uncertain, given that contrast is no t seen in the descending colon. Findings could be related to contrast extending to this region due t o rectal contrast, although no apparent contrast is seen in the descending colon. There is a small a mount of free fluid in the pelvis, but there is no fluid collection or free intraperitoneal gas seen on this exam. The visualized loops of small bowel are normal in caliber. There is a right lower ashly drant ileostomy present. There is herniation of fat into the defect, and the greatest transverse dim ension of the defect for the ostomy is 4.5 cm. The urinary bladder is incompletely distended but otherwise normal in appearance. There is evidence of a prior hysterectomy. Osseous structures are intact. IMPRESSION: 1. Post surgical changes of the pelvis with radiopaque suture material seen, incompletely imaged wit hin the left lower quadrant. 2. Small amount of free fluid in the pelvis, which is overall nonspecific. There is no defined flui d collection to suggest an abscess. No free intraperitoneal gas is identified. No extravasation of contrast is seen, but only a small amount of contrast was able to be administered. 3. Ostomy in the right lower quadrant related to the patient's ileostomy. There are loops of small bowel seen within the defect, and this may be related to two separate loops of small bowel extending to the ostomy defect. The ostomy defect measures 4.5 cm, and there is herniation of mesenteric fat i nto the defect. 4. Contrast in the ascending colon. The patient was administered rectal contrast during the examina tion, but no contrast was seen in the visualized descending colon. However, this may be related to c ontrast that has extended to the ascending colon. 5. Hysterectomy. POS: [facility]
== END 2017-07-27 09:01 | disposition home or self-care (01) ==
LOC: CT 09:00
PROVIDERS: ATTEND Surgery
DX: K94.13 Enterostomy malfunction (principal); Z98.890 Other specified postprocedural states
CPT/HCPCS: 72193

== ENCOUNTER 2017-07-28 13:47 | Outpatient (CLI) | payer BC ==
[2017-07-28 14:41] LABS: #Eosinphils 0.1 thou/uL (0.0-0.7); #Lymphocytes 2.5 thou/uL (1.20-3.40); #Monocytes 0.6 thou/uL (0.11-0.59); #Neutrophils 4.4 thou/uL (1.40-6.50); %Basophils 0.5 % (0.0-1.0); %Eosinophils 1.8 % (0.0-10.0); %Lymphocytes 32.3 % (21.0-51.0); %Monocytes 7.9 % (0.0-10.0); Hematocrit 38.2 % (36.0-47.0); Mean Platelet Volume 7.2 fL (7.4-10.4); Red Blood Cell (RBC) Count 4.29 mill/uL (4.20-5.40); White Blood Cell (WBC) Count 7.6 thou/uL (4.8-10.8)
[2017-07-28 15:15] LABS: Anion Gap 12 mmol/L (10-20); BUN (Urea Nitrogen) 14 mg/dL (9.8-20.1); Calc. Creatinine Clearance 0 mL/min (70-130); Carbon Dioxide 27 mmol/L (22-29); Chloride 103 mmol/L (98-107); Estimated GFR-MDRD 77
== END 2017-07-28 13:48 | disposition home or self-care (01) ==
LOC: LABBT 13:47
PROVIDERS: ATTEND Surgery
DX: Z01.812 Encounter for preprocedural laboratory examination (principal); K94.13 Enterostomy malfunction
CPT/HCPCS: 80048; 85025

== ENCOUNTER 2017-07-28 17:00 | Inpatient (IN) | payer BC ==
[2017-07-31] MEDS ORDERED: Ondansetron HCl/PF 4 MG/2 ML Vial ONE (09:52)
[2017-07-31] MEDS ORDERED: Dexamethasone 20 MG/5 ML VIAL ONE (09:52)
[2017-07-31] MEDS ORDERED: ePHEDrine/0.9% NaCl/PF SYRINGE 50 mg/10 ml ONE (09:52)
[2017-07-31] MEDS ORDERED: Glycopyrrolate 0.2 MG/ML 5 ML SYRINGE ONE (09:52)
[2017-07-31] MEDS ORDERED: PROPOFOL 200 MG/20 ML VIAL ONE (09:52)
[2017-07-31] MEDS ORDERED: Lidocaine 1% PF 5 ML VIAL ONE (09:52)
[2017-07-31] MEDS ORDERED: PHENYLEPHRINE-NS 100 MCG/ML 10 ML SYRINGE ONE (09:52)
[2017-07-31] MEDS ORDERED: CEFAZOLIN/Water 2 GM/20 ML SYRINGE ONE (13:36)
[2017-07-31] MEDS ORDERED: Midazolam HCl 2 mg/2 ml Vial ONE ×2 (14:54→15:13)
[2017-07-31] MEDS ORDERED: Fentanyl 250 MCG/5 ML VIAL ONE (15:13)
[2017-07-31] MEDS ORDERED: HYDROmorphone 2 MG/ML VIAL SLOW IVP PRN (15:51)
[2017-07-31] MEDS ORDERED: Promethazine HCl 25 MG/ML VIAL IM PRN (15:51)
[2017-07-31] MEDS ORDERED: Ondansetron HCl/PF 4 MG/2 ML Vial IVP PRN ×2 (15:51→18:55)
[2017-07-31] MEDS ORDERED: Promethazine HCl 25 MG/ML VIAL SLOW IVP PRN (15:51)
[2017-07-31 16:57] LABS: Bilirubin Negative (Negative); Blood, Urine Negative (Negative); Clarity CLEAR (Clear); Glucose, Urine (Dipstick) Negative (Negative); Leukocyte Negative (Negative); Nitrite Negative (Negative); Protein, Urine (Dipstick) Negative (Neg-Trace); Specific Gravity, Urine 1.012 (1.002-1.036); Urobilinogen 0.2 mg/dL (0.2-1.0)
[2017-07-31 16:58] LABS: Bacteria/HPF None Seen HPF (None Seen); Hyaline Casts/LPF 0-3 HYALINE CAST LPF (0-3 Hyaline); Pathc Cast-AUWi Flag 0.27 (0-2.49); RBC/HPF None Seen HPF (0-3); Squamous Epithelial 0-3 HPF (0-3); WBC/HPF None Seen HPF (0-3)
[2017-07-31] MEDS ORDERED: D5 1/2 NS w/20 mEq KCL 1,000 ML ONE (17:14)
[2017-07-31] MEDS ORDERED: HYDROmorphone 0.5 MG/0.5 ML SYRINGE ONE (18:04)
[2017-07-31] MEDS ORDERED: hydrALAZINE 20 MG/ML VIAL SLOW IVP PRN (18:55)
[2017-07-31] MEDS ORDERED: Ketorolac Tromethamine 30 MG/ML VIAL IVP PRN (18:55)
[2017-07-31] MEDS ORDERED: Fentanyl 100 MCG/2 ML VIAL SLOW IVP PRN (18:55)
--- NOTE | 2017-07-31 19:09 | OP ---
DATE OF SURGERY: 07/31/2017 PREOPERATIVE DIAGNOSES: History of left colectomy for chronic diverticulitis complicated by anastomo tic leak, status post loop ileostomy and drain placement. POSTOPERATIVE DIAGNOSES: History of left colectomy for chronic diverticulitis complicated by anastom otic leak, status post loop ileostomy and drain placement. PROCEDURE: Ileostomy takedown with small-bowel resection and anastomosis. SURGEON: Bart Whiting M.D. ANESTHESIA: General. ESTIMATED BLOOD LOSS: Minimal. COMPLICATIONS: None. SPECIMEN: Small bowel. INDICATION: The patient is a 51-year-old female, who presents after left colectomy for chronic diver ticulitis and stricture. Postop course was complicated by anastomotic leak. She underwent a loop il eostomy and drain placement. Immediate postoperative barium enema showed a small residual leak. Fol lowup CT with rectal contrast shows no ongoing leak. PROCEDURE IN DETAIL: She was taken to the operating room and laid supine on the operating table. Af ter general anesthetic was obtained, the abdomen was shaved, prepped, and draped in a sterile fashion . The mucosa was ellipsed out in the right lower quadrant. Cautery dissected down along the level o f the small bowel all the way to the opening in the fascia. All posterior adhesions were taken down. The small-bowel loop proximal and distal was able to be brought up under no tension. HANSEL-75 was fi red across the small bowel proximal and distal to the skin mucosa. The mesentery was taken using Vinnie ly clamps and silk ties. A [id number]-dk-[id number] anastomosis was performed in an antimesenteric fashion using HANSEL-75 stapler. The common enterotomy was closed using TA-60. Crotches and corners are oversewn us ing silk suture. The anastomosis was placed back into the abdominal cavity. The posterior fascia wa s closed using #1 PDS, anterior fascia using #1 PDS. Subcutaneous tissues were irrigated copiously u sing sterile solution. The skin was closed loosely using a pursestring of Prolene. A Morris was le ft in the middle of the wound. Sterile dressings were placed. The patient was en route to recovery in stable condition. All instrument counts, needle counts, and lap counts were correct.
[2017-07-31] MEDS: Fentanyl 100 MCG/2 ML VIAL SLOW IVP PRN ×2 (20:08→22:53)
[2017-07-31] MEDS: D5 1/2 NS w/20 mEq KCL 1,000 ML IV SCH (20:10)
[2017-07-31] MEDS: Acetaminophen 1,000 MG in Premix Bag 1 BAG IVPB SCH (20:14)
[2017-07-31] MEDS: Enoxaparin Sodium 40 MG/0.4 ML SYRINGE SC SCH (20:16)
[2017-07-31] MEDS: Famotidine 20 MG TAB PO SCH (20:17)
[2017-07-31] MEDS: Famotidine/PF 20 mg/2ml Vial SLOW IVP SCH (20:30)
[2017-07-31] MEDS: STERILE WATER SLOW IVP SCH (22:46)
[2017-07-31] MEDS: CEFOXITIN SLOW IVP SCH (22:46)
[2017-07-31 23:17] VITALS: BMI 27.4
[2017-08-01] MEDS: Fentanyl 100 MCG/2 ML VIAL SLOW IVP PRN ×6 (02:22→18:00)
[2017-08-01] MEDS: Acetaminophen 1,000 MG in Premix Bag 1 BAG IVPB SCH ×2 (02:24→08:45)
[2017-08-01] MEDS: CEFOXITIN SLOW IVP SCH (05:02)
[2017-08-01] MEDS: STERILE WATER SLOW IVP SCH (05:02)
[2017-08-01 05:28] LABS: #Monocytes 0.3 thou/uL (0.11-0.59); #Neutrophils 10.5 thou/uL (1.40-6.50); %Eosinophils 0.1 % (0.0-10.0); %Lymphocytes 8.6 % (21.0-51.0); %Monocytes 2.2 % (0.0-10.0); %Neutrophils 89.1 % (42.0-75.0); Hemoglobin 11.9 g/dL (12.0-16.0); Mean Corpuscular HGB CONC 32.3 g/dL (32.0-36.0); Mean Corpuscular Hemoglobin 28.6 pg (27.0-31.0); Mean Corpuscular Volume 88.6 fl (81.0-99.0); Mean Platelet Volume 7.1 fL (7.4-10.4); Platelet Count 334 thou/uL (130-400); RBC Distribution Width 13.3 % (11.5-14.5); Red Blood Cell (RBC) Count 4.15 mill/uL (4.20-5.40); White Blood Cell (WBC) Count 11.8 thou/uL (4.8-10.8)
[2017-08-01 05:32] LABS: Anion Gap 11 mmol/L (10-20); BUN (Urea Nitrogen) 7 mg/dL (9.8-20.1); Calc. Creatinine Clearance 105 mL/min (70-130); Calcium 9.3 mg/dL (7.8-10.44); Carbon Dioxide 25 mmol/L (22-29); Chloride 105 mmol/L (98-107); Estimated GFR-MDRD 86; Glucose 146 mg/dL (70-105); Potassium 4.4 mmol/L (3.5-5.1); Sodium 137 mmol/L (136-145)
[2017-08-01] MEDS: D5 1/2 NS w/20 mEq KCL 1,000 ML IV SCH (06:45)
[2017-08-01] MEDS: Famotidine 20 MG TAB PO SCH ×2 (08:45→20:32)
[2017-08-01] MEDS: Famotidine/PF 20 mg/2ml Vial SLOW IVP SCH (08:46)
[2017-08-01] MEDS ORDERED: HYDROcodone/Acetaminophen 10/325 mg Tablet PO PRN (09:15)
--- NOTE | 2017-08-01 09:44 | PRG ---
DATE OF SERVICE: 08/01/2017 SUBJECTIVE: Postop day #1, ileostomy takedown. Ms. Carrizales is complaining of pain and needing the fen tanyl quite a bit. PHYSICAL EXAMINATION: VITAL SIGNS: She is afebrile, pulse 75, blood pressure 115/73, O2 sat 93%. She is voiding regularly . ABDOMEN: Soft. Dressings have some serosanguineous drainage. Abdomen otherwise is appropriately te nder. LABORATORY DATA: White blood cell count is 11, hemoglobin 11, creatinine 0.71. ASSESSMENT: Postoperative day #1 ileostomy takedown. PLAN: Full liquids for dinner, if nausea. If no nausea, add Carter for pain. Hep-Lock IV fluids.
[2017-08-01] MEDS: HYDROcodone/Acetaminophen 10/325 mg Tablet PO PRN ×3 (10:59→20:00)
[2017-08-01] MEDS: Cetirizine HCl 10 MG TAB PO SCH (11:00)
[2017-08-01] MEDS: Enoxaparin Sodium 40 MG/0.4 ML SYRINGE SC SCH (20:31)
[2017-08-02] MEDS: HYDROcodone/Acetaminophen 10/325 mg Tablet PO PRN ×6 (01:01→22:08)
[2017-08-02] MEDS: Cetirizine HCl 10 MG TAB PO SCH (08:43)
[2017-08-02] MEDS: Famotidine 20 MG TAB PO SCH ×2 (08:43→20:56)
--- NOTE | 2017-08-02 14:14 | PRG ---
DATE OF SERVICE: 08/02/2017 SUBJECTIVE: Ms. Carrizales is postop day #2 ileostomy takedown. Denies nausea, doing well, not had a bow el movement, not passing gas. She does feel rumbling. PHYSICAL EXAMINATION: VITAL SIGNS: She is afebrile. Vital signs are stable. ABDOMEN: Minimally distended. She has active bowel sounds. Her Morris drain is removed. There is no evidence of infection. The wound was redressed. ASSESSMENT: Postop day #2 ileostomy takedown. PLAN: Milk of magnesium today, await bowel function, likely home tomorrow.
[2017-08-02] MEDS ORDERED: Milk Of Magnesia 30 ML UDCUP PO SCH (14:30)
[2017-08-02] MEDS: Enoxaparin Sodium 40 MG/0.4 ML SYRINGE SC SCH (20:56)
[2017-08-03] MEDS: Promethazine HCl 25 MG/ML VIAL IM PRN ×4 (03:29→20:19)
[2017-08-03] MEDS: Famotidine 20 MG TAB PO SCH ×2 (08:35→21:06)
[2017-08-03] MEDS: Cetirizine HCl 10 MG TAB PO SCH (08:35)
[2017-08-03] MEDS ORDERED: Acetaminophen 1,000 MG in Premix Bag 1 BAG IVPB PRN (09:05)
[2017-08-03] MEDS ORDERED: Bisacodyl 10 MG SUPP PR SCH ×2 (09:15→16:00)
--- NOTE | 2017-08-03 10:54 | PRG ---
DATE OF SERVICE: 08/03/2017 Ms. Carrizales feels more bloated today. She was dry heaving this morning, but not vomiting anything up. She feels bloated, not passing gas yet. I had them place a Dulcolax suppository this morning. She is having some cramping in her low abdomen. PHYSICAL EXAMINATION: VITAL SIGNS: Pulse 92, respirations 14, blood pressure is 109/73. She is afebrile. Multiple voids. ABDOMEN: Slightly distended, but she has bowel sounds. Dressing in the right lower quadrant is inta ct with minimal drainage. ASSESSMENT: Postoperative day #3, ileostomy takedown with continued expected postop ileus. PLAN: We will see if the Dulcolax suppository works. Reassess after lunch.
[2017-08-03] MEDS: D5 1/2 NS w/20 mEq KCL 1,000 ML IV SCH ×2 (11:57→21:09)
[2017-08-03] MEDS: Fentanyl 100 MCG/2 ML VIAL SLOW IVP PRN (16:30)
--- NOTE | 2017-08-03 17:04 | RAD ---
ABDOMEN TWO VIEWS: 08/03/17 HISTORY: Bleeding after ileostomy takedown. FINDINGS/IMPRESSION: No free air is seen. Air fluid levels are present in the bowel. Bowel loops do not appear abnormally dilated. No suspicious calcifications are seen. POS: [facility]
[2017-08-03] MEDS ORDERED: Fentanyl 5000 MCG/250 ML CADD IVPB PRN (18:22)
[2017-08-03] MEDS ORDERED: Promethazine HCl 25 MG/ML VIAL IM PRN (18:22)
[2017-08-03] MEDS ORDERED: diphenhydrAMINE 50 MG/ML VIAL IM PRN (18:22)
[2017-08-03] MEDS ORDERED: diphenhydrAMINE 50 MG/ML VIAL IVP PRN (18:22)
[2017-08-03] MEDS ORDERED: Ondansetron HCl/PF 4 MG/2 ML Vial IVP PRN (18:22)
[2017-08-03] MEDS ORDERED: diphenhydrAMINE 25 MG CAP PO PRN (18:22)
[2017-08-03] MEDS ORDERED: Zolpidem Tartrate 5 MG TAB PO PRN (18:22)
[2017-08-03] MEDS ORDERED: Naloxone HCl 0.4 mg/ml Vial IV PRN (18:22)
[2017-08-03] MEDS ORDERED: Mag-Al 1200 mg/1200 mg/30 ML UDCUP PO PRN (18:23)
[2017-08-03] MEDS ORDERED: Communication Order-Pharmacy FS SCH (18:30)
[2017-08-03] MEDS: Enoxaparin Sodium 40 MG/0.4 ML SYRINGE SC SCH (21:08)
[2017-08-04] MEDS: Promethazine HCl 25 MG/ML VIAL IM PRN ×5 (00:07→21:37)
[2017-08-04 05:46] LABS: #Lymphocytes 1.6 thou/uL (1.20-3.40); #Monocytes 0.8 thou/uL (0.11-0.59); #Neutrophils 7.5 thou/uL (1.40-6.50); %Basophils 0.4 % (0.0-1.0); %Eosinophils 0.2 % (0.0-10.0); %Lymphocytes 15.7 % (21.0-51.0); %Monocytes 8.3 % (0.0-10.0); %Neutrophils 75.3 % (42.0-75.0); Hemoglobin 13.5 g/dL (12.0-16.0); Mean Corpuscular HGB CONC 32.4 g/dL (32.0-36.0); Mean Corpuscular Volume 89.7 fl (81.0-99.0); Mean Platelet Volume 6.9 fL (7.4-10.4); Platelet Count 399 thou/uL (130-400); RBC Distribution Width 13.3 % (11.5-14.5); Red Blood Cell (RBC) Count 4.66 mill/uL (4.20-5.40)
[2017-08-04 06:06] LABS: Anion Gap 14 mmol/L (10-20); BUN (Urea Nitrogen) 11 mg/dL (9.8-20.1); Calc. Creatinine Clearance 110 mL/min (70-130); Calcium 9.4 mg/dL (7.8-10.44); Carbon Dioxide 24 mmol/L (22-29); Chloride 102 mmol/L (98-107); Estimated GFR-MDRD Greater than 90; Glucose 133 mg/dL (70-105); Potassium 4.5 mmol/L (3.5-5.1); Sodium 135 mmol/L (136-145)
[2017-08-04] MEDS: D5 1/2 NS w/20 mEq KCL 1,000 ML IV SCH ×2 (07:33→17:40)
--- NOTE | 2017-08-04 07:44 | PRG ---
DATE OF SERVICE: 08/04/2017 Ms. Carrizales has more cramping and mid abdominal pain that she is describing as severe cramping, really not passing any gas. Only a little bit of mucus from her backside. PHYSICAL EXAMINATION: VITAL SIGNS: Pulse 101, blood pressure is 127/80. She is afebrile. ABDOMEN: Distended, diffusely tender. Right lower quadrant wound shows no evidence of infection. T here is no purulent drainage. White blood cell count is 10 with a normal differential, hemoglobin 13. Sodium 135, potassium 4.5, c reatinine 0.68, glucose 133. Plain films x-ray revealed no obvious significant obstruction. ASSESSMENT: Severe abdominal pain after ileostomy takedown with no bowel function. Differential wou ld be continued prolonged postop ileus versus anastomotic leak (less likely given the lack of tempera tures and normal white count) versus distal obstruction (she did have some mild stenosis at the anast omosis on barium enema month ago). Will place NG tube, if not clinically improved in the next few hours, we will take to the operating r oom for exploration.
--- NOTE | 2017-08-04 08:56 | RAD ---
ABDOMEN 1 VIEW: Date: 08/04/17 HISTORY: Nasogastric tube placement. FINDINGS/IMPRESSION: The tip of the nasogastric tube is in the projection of the distal esophagus. Advancement is recommen ded. The bowel gas pattern is unremarkable. Report was called over the telephone to the patient's nurse, Tessa Dang, at 0819 hours. CODE CR. POS: [facility]
[2017-08-04] MEDS: Famotidine 20 MG TAB PO SCH ×2 (09:42→22:12)
[2017-08-04] MEDS: Cetirizine HCl 10 MG TAB PO SCH (09:42)
[2017-08-04] MEDS ORDERED: Chloraseptic Spray 180 ml Bottle PO PRN (11:07)
[2017-08-04] MEDS ORDERED: Cepastat Lozenges 1 LOZ PO PRN (11:07)
--- NOTE | 2017-08-04 13:23 | RAD ---
CONTRAST ENEMA: Date: 08/04/17 HISTORY: Evaluate for rectosigmoid anastomosis. Patient has a history of previous surgery and leak. FINDINGS: A single contrast enema was performed using gastrograffin. Rectal contrast was administered via recta l tube under fluoroscopy. There is no flow of contrast beyond the level of the rectosigmoid anastomos is. No contrast extravasation was seen. IMPRESSION: Obstruction at the level of the rectosigmoid anastomosis. Findings discussed over the telephone with Dr. Ethan Whiting at 1143 hours. CODE CR. POS: [facility]
[2017-08-04] MEDS ORDERED: MD-Gastroview 120 ML BOT ONE (13:40)
--- NOTE | 2017-08-04 15:12 | PRG ---
DATE OF SERVICE: 08/04/2017 SUBJECTIVE: Ms. Carrizales feels better after NG tube placement this morning. OBJECTIVE: VITAL SIGNS: She is afebrile. Her vital signs are stable. ABDOMEN: Less distended. She has occasional bowel sounds. Barium enema revealed complete obstructi on at the rectosigmoid anastomosis. ASSESSMENT: Postop ileostomy takedown now with obstruction at the rectosigmoid anastomosis. Looking back at her BE a month ago, she did have some mild stenosis there, but no complete obstruction. PLAN: I have discussed with Dr. Lockett who is going to see her for flexible sigmoidoscopy possibl e dilation. If she is completely obstructed and not amenable with dilation, she may need either redo low anterior and ileostomy or placement of stent by Dr. Ferraro. We will arrange for transfer if ne ed be.
[2017-08-04] MEDS: Enoxaparin Sodium 40 MG/0.4 ML SYRINGE SC SCH (21:41)
[2017-08-04] MEDS: Famotidine/PF 20 mg/2ml Vial SLOW IVP SCH (21:43)
--- NOTE | 2017-08-05 02:09 | CON ---
DATE OF CONSULTATION: 08/04/2017 REFERRING PHYSICIAN: Dr. Ethan Whiting. REASON FOR CONSULTATION: Anastomotic obstruction and possible balloon dilation of the anastomotic stricture. HISTORY OF PRESENT ILLNESS: Ms. Anita Deng is a very pleasant 51-year-old female, who is very healthy except for history of recurrent diverticulitis over the last 5 years. The patient does see Dr. Eunice Peterson on a regular basis. The patient was referred to Dr. Whiting because of recurrent diverticulitis and also diverticular stricture. The patient underwent surgery by Dr. Ethan Whiting in 04/2017. She had a loop ileostomy at that time. Subsequently, she underwent reversal of loop ileostomy and also end -to-end anastomosis. The patient has been having some lower abdominal pain and also unable to pass gas, etc. The patient underwent a barium enema today. Barium enema showed no contrast flowing past the anastamosis indicative of a stricture. I was asked to see the patient by Dr. Whiting for possibly flexible sigmoidoscopy and bronchodilatation. At the time of the consultation, she appears very comfortable. She is in no acute distress. She has some gas pain off and on. She has an NG tube, which is draining clear bilious material. She has no other relevant history. ALLERGIES: CODEINE. SOCIAL HISTORY: The patient does not smoke or drink alcohol. MEDICAL ILLNESSES: 1. Recurrent diverticulitis over the last 5 years, status post surgery in 04/27. 2. Status post complete hysterectomy. 3. No history of hypertension, heart disease, lung disease or diabetes. MEDICATIONS: List reviewed. REVIEW OF SYSTEMS: Unremarkable except for abdominal discomfort, nausea and not able to passing gas. PHYSICAL EXAMINATION: GENERAL: She appears comfortable. She is awake, alert, and communicative. VITAL SIGNS: She is afebrile, pulse is 106 and blood pressure is 116/83. HEENT: Conjunctivae clear. NECK: Supple. No adenitis or thyromegaly noted. CARDIOVASCULAR: First and second heart sounds normal. LUNGS: Clear to auscultation. ABDOMEN: Soft. Nondistended. Abdomen is mildly tender across the lower abdomen. There is no rebound or guarding. EXTREMITIES: Reveal no edema. LABORATORY DATA: The most recent one, WBC is 10,000, hemoglobin 13.5, hematocrit 41.8, MCV 89.7, platelet count 99,000, polymorphs 75 and lymphocytes 15. Serum chemistries: Sodium is 135, potassium 4.5, chloride 102, bicarbonate 24, BUN is 11, creatinine is 0.68, glucose 133 and calcium 9.4. A barium enema done today shows complete obstruction of the rectosigmoid area. CLINICAL IMPRESSION: 1. Anastomotic obstruction stricture. 2. Status post surgery for diverticular disease, 04/2017 and loop ileostomy. PLAN: Sigmoidoscopy and balloon dilatation. I did speak to Mr. Carrizales about the procedure and the possible risks like bleeding and perforation. The patient understood the procedure well. I will plan for sigmoidoscopy after 2 Fleet enema tomorrow morning. MTDD
[2017-08-05] MEDS: D5 1/2 NS w/20 mEq KCL 1,000 ML IV SCH (03:20)
[2017-08-05] MEDS ORDERED: Fleet Enema 133 ML BOT FS ONE (07:00)
[2017-08-05] MEDS: Fleet Enema 133 ML BOT FS SCH ×2 (07:25→08:40)
[2017-08-05] MEDS: Cetirizine HCl 10 MG TAB PO SCH (07:57)
[2017-08-05] MEDS: Famotidine 20 MG TAB PO SCH (07:57)
[2017-08-05] MEDS: Famotidine/PF 20 mg/2ml Vial SLOW IVP SCH ×2 (09:15→21:18)
[2017-08-05] MEDS ORDERED: Lidocaine 1% PF 5 ML VIAL ONE ×2 (09:37→09:38)
[2017-08-05] MEDS ORDERED: PROPOFOL 200 MG/20 ML VIAL ONE ×2 (09:37→09:38)
[2017-08-05] MEDS ORDERED: Glycopyrrolate 0.2 MG/ML 5 ML SYRINGE ONE (09:38)
[2017-08-05] MEDS ORDERED: PHENYLEPHRINE-NS 100 MCG/ML 10 ML SYRINGE ONE ×2 (09:38→14:15)
[2017-08-05] MEDS ORDERED: Dexamethasone 20 MG/5 ML VIAL ONE (09:38)
[2017-08-05] MEDS ORDERED: Promethazine HCl 25 MG/ML VIAL SLOW IVP PRN ×2 (11:12→15:35)
[2017-08-05] MEDS ORDERED: Promethazine HCl 25 MG/ML VIAL IM PRN ×3 (11:12→15:35)
[2017-08-05] MEDS ORDERED: Ondansetron HCl/PF 4 MG/2 ML Vial IVP PRN ×3 (11:12→15:35)
[2017-08-05] MEDS ORDERED: Fentanyl 100 MCG/2 ML VIAL ONE ×4 (11:13→13:14)
[2017-08-05] MEDS ORDERED: Promethazine HCl 25 MG/ML VIAL ONE (11:35)
[2017-08-05] MEDS ORDERED: Piperacillin/Tazobactam 4.5 GM in Sodium Chloride 0.9% 100 ML IVPB SCH (12:00)
[2017-08-05] MEDS ORDERED: Acetaminophen 1,000 MG in Premix Bag 1 BAG IVPB SCH (12:00)
[2017-08-05] MEDS ORDERED: Ketorolac Tromethamine 30 MG/ML VIAL IVP SCH ×2 (12:00→18:00)
[2017-08-05] MEDS ORDERED: Ketorolac Tromethamine 30 MG/ML VIAL ONE (12:06)
[2017-08-05] MEDS ORDERED: Midazolam HCl 2 mg/2 ml Vial ONE (12:45)
[2017-08-05] MEDS ORDERED: Labetalol HCl 100 MG/20 ML VIAL ONE (13:13)
--- NOTE | 2017-08-05 13:29 | CT ---
CT ABDOMEN AND PELVIS WITHOUT CONTRAST: Date: 08/05/17 HISTORY: Concern for free air. COMPARISON: CT pelvis dated 07/27/17. FINDINGS: Large volume free intraperitoneal gas. There is also what appears to be portal venous gas on the annette phery of right lobe of liver in hepatic segment 5 and 6. There are dilated loops of small bowel. There is some gas and fluid within the right ostomy tract. Atelectatic changes both lung bases with small effusions. IMPRESSION: 1. Large volume pneumoperitoneum. 2. Small volume portal venous gas right lobe of liver, hepatic segment 5 and 6. Surgical consultation is recommended. Dr. Lockett notified of findings via telephone at 1135 hours. CODE CR. POS: [facility]
[2017-08-05] MEDS ORDERED: Bupivacaine 0.25% 10 ML VIAL EPIDURAL PRN (13:30)
[2017-08-05] MEDS ORDERED: diphenhydrAMINE 50 MG/ML VIAL IVP PRN (13:30)
[2017-08-05] MEDS ORDERED: Eucerin (Mineral Oil/Petrolatum,White) 30 gm Jar TOP PRN (13:30)
[2017-08-05] MEDS ORDERED: Promethazine HCl 25 MG SUPP PR PRN (13:30)
[2017-08-05] MEDS ORDERED: Fentanyl/Bupivacaine 250 ML in Premix Bag 1 BAG EPIDURAL SCH (13:30)
[2017-08-05] MEDS ORDERED: Naloxone HCl 0.4 mg/ml Vial IV PRN (13:30)
[2017-08-05] MEDS ORDERED: Zolpidem Tartrate 5 MG TAB PO PRN (13:30)
[2017-08-05] MEDS ORDERED: Naloxone HCl 0.4 mg/ml Vial IVP PRN (13:30)
[2017-08-05] MEDS ORDERED: traMADol HCl 50 MG TAB PO PRN ×2 (13:30)
[2017-08-05] MEDS ORDERED: diphenhydrAMINE 25 MG CAP PO PRN (13:30)
[2017-08-05] MEDS ORDERED: diphenhydrAMINE 50 MG/ML VIAL IM PRN (13:30)
[2017-08-05] MEDS ORDERED: HYDROcodone/Acetaminophen 5/325 mg Tablet PO PRN ×2 (13:30)
[2017-08-05] MEDS ORDERED: Phenylephrine 10 MG/NS 250 ML 250 ML ONE (13:47)
[2017-08-05] MEDS ORDERED: Bupivacaine 0.25% HCL 30 ML VIAL ONE (13:47)
--- NOTE | 2017-08-05 13:55 | OP ---
DATE OF PROCEDURE: 08/05/2017 OPERATIVE PROCEDURE: Flexible sigmoidoscopy and attempted balloon dilation. PREOPERATIVE DIAGNOSES: A 51-year-old female with status post colostomy reversal after she had diverticulitis and diverticular stricture. She had surgery in 04/2017. She had a colonoscopy reversal about 5 days ago. She is unable to pass gas. She had a barium enema, which revealed rectosigmoid obstruction. The patient is undergoing sigmoidoscopy. The patient was informed the procedure in detail and the risk of perforation explained to the patient. The patient understood the procedure. PROCEDURE NOTE: The patient was placed on the left lateral position and was given sedation by the Anesthesia Department. A rectal exam was done before the scope was advanced into the rectum. No lesions were felt on rectal exam. A Pentax video colonoscope was advanced into the rectum and advanced to a distance of may be about 15 to 17 cm. The anastomotic area appears very tight. Initially, I could not really see any opening. After irrigating the area with water and sucking out, I could barely see a tiny opening. It was elected to pass a Savary guidewire. I was able to advance the guidewire without difficulty into the proximal colon. When the guidewires removed, the area where the stricture appears to be little more opened until the opening looks better. A colonic balloon size 10 mm passed through the biopsy channel and was outright advanced to the anastomotic area. Could barely get the tip of the balloon in there. I was not able to advance it to further. I tried to dilate seriallly using the balloon. Initially, it was inflated to 1 mm and then deflated. After the dilation, the opening appears a little bit more bigger. I advanced the balloon a little bit more further and again was able to dilate serially. The balloon was removed. After that, a 15 mm balloon was placed through the biopsy channel and placed through the opening. I was able to advance this balloon trough there and it was inflated to stage three for about 2 minutes. After that, the balloon was deflated and removed. The lumen appears to be more open, but I could not really advance the scope into the proximal colon. After the balloon dilation, anastomotic area appears more open and also looks friable. No further dilation done before the scope was advanced. At the end of procedure, I did palpate the abdomen and the abdomen is free, nondistended, nontender. I saw the patient one more time in the recovery room, again the abdomen is nontender. PLAN: Obtain a CAT scan of the abdomen and pelvis without any contrast to make sure there is no perforation. I will talk to Dr. Bart Whiting later on today, and it appears that the patient most likely may need surgical intervention. JOSSIE
--- NOTE | 2017-08-05 15:06 | HP ---
HISTORY OF PRESENT ILLNESS: A 51-year-old female, [facility] at [facility], status post laparoscopic l eft colectomy with low pelvic anastomosis, laparoscopic mobilization of splenic flexure by Dr. Kirti toribio on 05/04/2017, complicated by anastomotic leak requiring Dr. Thomas 05/11/2017, laparoscopic drainag e of pelvic abscess with diverting loop ileostomy. The patient presented to this hospitalization for ileostomy reversal. Prior to this, on 06/26/2017, she had a contrast enema study demonstrating sinu s tract around the anastomosis and her ileostomy reversal was delayed. The patient underwent ileosto my reversal on 07/31/2017 and postoperatively had some bloating and then had a contrast enema study o n 08/04/2017 demonstrating obstruction at the level of the rectosigmoid where the contrast could not be passed beyond. Today, Dr. Lockett performed a flexible sigmoidoscopy with dilatation. Post-pro cedure, patient had increased pain and CAT scan of abdomen and pelvis revealed free intraabdominal ai r and the patient had increased pain. Dr. Whiting is out of town and called me after discussion with Dr. Lockett. I have examined the patient. The patient had increased pain and CAT scan revealed p neumoperitoneum significant with an evidence of leak. I have discussed with Dr. Whiting and the suki ent and plan at this time is epidural catheter laparotomy, resection of the old anastomosis and redo colorectal anastomosis with diversion ileostomy. I have discussed with the patient and her a s well as Dr. Lockett and Dr. Whiting, we will plan this emergently today. Laboratories yesterday revealed a normal basic metabolic profile and normal hemoglobin of 13. ALLERGIES: None. TOBACCO: None. ALCOHOL: Rarely. MEDICATIONS: Zyrtec, Zantac, Estrace, alprazolam. PAST MEDICAL HISTORY: Migraines, GERD, osteoporosis, diverticulitis with frequent treatments. PAST SURGICAL HISTORY: Tonsillectomy, total abdominal hysterectomy, bilateral salpingo-oophorectomy and surgical history for colon as outlined above. PHYSICAL EXAMINATION: GENERAL: The patient is in mild distress with abdominal pain. She received fentanyl. She feels bet ter. LUNGS: Clear to auscultation. CARDIAC: Regular rate and rhythm. ABDOMEN: Soft, slightly distended, tympanitic. Tender with guarding, more pronounced in lower abdom en. EXTREMITIES: Unremarkable. ASSESSMENT AND PLAN: History of diverticulitis with resultant sigmoid resection and colorectal anast omosis and postoperatively diverting ileostomy with rectosigmoid obstruction status post dilatation a nd perforation and peritonitis. Planned procedure as outlined above. She understands the risks and benefits and consents.
[2017-08-05] MEDS ORDERED: Lactated Ringer's 1,000 ML IV SCH (16:14)
--- NOTE | 2017-08-05 16:20 | RAD ---
AP VIEW CHEST: DATE: 08/05/17 HISTORY: Central line placement. FINDINGS: There is a nasogastric tube in place, distal tip not seen. There has been placement of a left subclav domingo central line, distal tip overlying the right atrium. The lungs are well aerated. No evidence of a cute intrathoracic abnormality seen. No evidence of effusions, pneumonia, or pneumothorax seen. Mild cardiomegaly noted. IMPRESSION: No evidence of post line placement pneumothorax or hemothorax. POS: [facility]
[2017-08-05] MEDS: Acetaminophen 1,000 MG in Premix Bag 1 BAG IVPB SCH ×2 (18:20→23:16)
[2017-08-05] MEDS: Piperacillin/Tazobactam 4.5 GM in Sodium Chloride 0.9% 100 ML IVPB SCH (19:00)
--- NOTE | 2017-08-05 19:21 | PRG ---
DATE OF SERVICE: 08/05/2017 SUBJECTIVE: This is done after the patient underwent sigmoidoscopy and balloon dilation of the stric ture. The patient was sent for a CAT scan of abdomen and pelvis with noncontrast. The noncontrast C AT scan shows large amount of free air in the abdomen. The patient after returning from the CAT scan , started to have severe abdominal pain and she has been sedated. I did meet with Sarabjit Carrizales, her hu and. I explained about the perforation that occurred most likely during the dilation, and she is i n need of emergency surgery. I did contact Dr. Ethan Whiting on telephone, and Dr. Whiting will call Dr. Sam who was it architecture consultant for Dr. Whiting to have the emergency surgery. I also did speak to Dr. Adela lainez and explained about the perforation. Dr. Sam will plan to do surgery and possibly do a dive rting colostomy and ileostomy. This was conveyed to the patient's .
--- NOTE | 2017-08-05 19:24 | OP ---
DATE OF OPERATION: 08/05/2017 PREOPERATIVE DIAGNOSES: Colorectal stricture post-dilatation, fecal peritonitis , 3 months status post laparoscopic colon resection and leak in diverting ileostomy with subsequent reversal a few days ago. POSTOPERATIVE DIAGNOSES: Colorectal stricture post-dilatation, fecal peritonitis, 3 months status post laparoscopic colon resection and leak in diverting ileostomy with subsequent reversal a few days ago. PROCEDURE: Left subclavian vein central line, exploratory laparotomy, abdominal washout, colorectal anastomotic disruption with fecal peritonitis appreciated. Small bowel adhesions from the pelvis taken down, enteric contents milked retrograde in the stomach evacuated, NG tube palpated in proper position. Small bowel sequestered with Bookwalter to the right and upper abdomen. Abdominal cavity irrigated. The descending colon had disrupted from the rectum and this was controlled and stapled with a contour stapler securing it. Abdominal cavity thoroughly irrigated. The rectosigmoid then identified and was opened and was strictured and dissected free, keeping ureter free of harm, identifying it, and contour staple used to close the Jackie's pouch. Specimens resected and submitted to pathology. Good hemostasis obtained with the cautery. Abdominal cavity thoroughly irrigated with 4 liters of saline solution. Irrigant evacuated. Good hemostasis noted. At this point, the small bowel was run from the cecum proximally, ligament of Treitz to the ileostomy takedown, anastomosis noted to be intact without leakage. Serosal tears closed with interrupted 3-0 Lembert sutures and small bowel inspected twice throughout its length. Irrigant evacuated. Omental tears closed with 3- 0 silk and omentum placed over the viscera and a defect made in the left lower quadrant for colostomy, excising a circular defect of skin and subcutaneous tissue, identifying the anterior rectus sheath. A cruciate incision made and rectus muscle split medially and laterally, and posterior fascia opened and dilated to three fingerbreadths and colon brought through this and it reached easily to form a colostomy. At this point, as all instrument, sponge, needle counts were correct, a Seprafilm placed between the omentum and the abdominal wall and the fascia approximated with continuous suture of #1 PDS. Skin and subcutaneous tissues irrigated. Skin about the umbilicus approximated with blayne, inferiorly approximated with blayne, and wound VAC applied. The ileostomy reversal incision had opened and the Prolene pursestring suture removed and this wound incorporated into the wound VAC closure system. At this point, colostomy maturation undertaken excising the staple line and placing 4 quadrant turnbolt sutures of 3-0 Vicryl and a simple suture of 3-0 Vicryl completing colostomy maturation. Colostomy was healthy and it was probed and patent through the abdominal wall. At this point, the patient transferred to the PACU in stable condition. Patient tolerated the procedure well. JOSSIE
[2017-08-05] MEDS: Lactated Ringer's 1,000 ML IV SCH ×2 (20:19→23:16)
[2017-08-05] MEDS: Ketorolac Tromethamine 30 MG/ML VIAL IVP SCH ×2 (20:21→23:17)
[2017-08-05] MEDS ORDERED: Lactated Ringer's 500 ML IV SCH (21:45)
[2017-08-05] MEDS: Albumin 25% 25 GM/100 ML BOT IVPB SCH (21:58)
[2017-08-05 22:03] LABS: Hemoglobin 10.7 g/dL (12.0-16.0)
[2017-08-06] MEDS: Piperacillin/Tazobactam 4.5 GM in Sodium Chloride 0.9% 100 ML IVPB SCH ×4 (00:12→17:00)
[2017-08-06] MEDS: Albumin 25% 25 GM/100 ML BOT IVPB SCH ×3 (03:46→19:30)
[2017-08-06] MEDS: D5 1/2 NS w/20 mEq KCL 1,000 ML IV SCH (04:31)
[2017-08-06] MEDS: Lactated Ringer's 1,000 ML IV SCH ×3 (05:26→20:20)
[2017-08-06] MEDS: Ketorolac Tromethamine 30 MG/ML VIAL IVP SCH (05:26)
[2017-08-06] MEDS: Acetaminophen 1,000 MG in Premix Bag 1 BAG IVPB SCH (05:40)
[2017-08-06 06:26] LABS: Anion Gap 9 mmol/L (10-20); BUN (Urea Nitrogen) 9 mg/dL (9.8-20.1); Calc. Creatinine Clearance 124 mL/min (70-130); Calcium 8.1 mg/dL (7.8-10.44); Carbon Dioxide 26 mmol/L (22-29); Chloride 108 mmol/L (98-107); Estimated GFR-MDRD Greater than 90; Glucose 89 mg/dL (70-105); Magnesium 1.6 mg/dL (1.6-2.6); Potassium 3.9 mmol/L (3.5-5.1); Sodium 139 mmol/L (136-145)
[2017-08-06 06:47] LABS: Band 38 % (5-11); Hemoglobin 9.3 g/dL (12.0-16.0); Lymphocytes 14 % (21-51); MDiff Complete? YES; Mean Corpuscular Hemoglobin 28.9 pg (27.0-31.0); Mean Corpuscular Volume 90.5 fl (81.0-99.0); Mean Platelet Volume 6.7 fL (7.4-10.4); Metamyelocyte 5 % (0-0); Monocytes 4 % (0-10); Myelocyte 1 % (0-0); Neutrophil 38 % (42-75); Platelet Count 259 thou/uL (130-400); RBC Distribution Width 13.3 % (11.5-14.5); Red Blood Cell (RBC) Count 3.22 mill/uL (4.20-5.40)
[2017-08-06] MEDS ORDERED: Zolpidem Tartrate 5 MG TAB PO PRN (09:00)
[2017-08-06] MEDS ORDERED: Communication Order-Pharmacy FS SCH (09:00)
[2017-08-06] MEDS ORDERED: diphenhydrAMINE 50 MG/ML VIAL IVP PRN (09:00)
[2017-08-06] MEDS ORDERED: Ondansetron HCl/PF 4 MG/2 ML Vial IVP PRN (09:00)
[2017-08-06] MEDS ORDERED: Promethazine HCl 25 MG/ML VIAL IM PRN (09:00)
[2017-08-06] MEDS ORDERED: Naloxone HCl 0.4 mg/ml Vial IV PRN (09:00)
[2017-08-06] MEDS ORDERED: diphenhydrAMINE 25 MG CAP PO PRN (09:00)
[2017-08-06] MEDS ORDERED: Fentanyl 5000 MCG/250 ML CADD IVPB PRN (09:00)
[2017-08-06] MEDS ORDERED: diphenhydrAMINE 50 MG/ML VIAL IM PRN (09:00)
[2017-08-06] MEDS: Famotidine/PF 20 mg/2ml Vial SLOW IVP SCH ×2 (09:10→20:01)
--- NOTE | 2017-08-06 12:40 | PRG ---
DATE OF SERVICE: 08/06/2017 SUBJECTIVE: Postop day #1, Jackie's procedure by Dr. Sam for perforation. Ms. Carrizales's pain is controlled. She was switched over from epidural to PROCESS EXPERT. She has been up at the bedside, but not in the daniels. She would like her NG out and her Momin out. She denies nausea. She is hungry. PHYSICAL EXAMINATION: VITAL SIGNS: Blood pressure is 102/69, temperature is 97.3, respirations 14, O2 sat 94% on room air. Urine output is good at 1000 for the shift, 300 of her NG output since OR yesterday. ABDOMEN: Soft. There is a small amount of stool and air in her bag. Her midline wound and right lo wer quadrant wound have VAC. LABORATORY DATA: White blood cell count is 8, hemoglobin is 9.3. She has 38 bands. Creatinine 0.6, sodium 139, and potassium 3.9. ASSESSMENT: Postoperative diverting colostomy and resection of previous rectosigmoid anastomosis by Dr. Sam. PLAN: Discontinue NG, and Momin. Continue wound VAC. She is on Zosyn. We will allow ice chips and hard candy today. Encouraged ambulation.
[2017-08-06] MEDS: Enoxaparin Sodium 40 MG/0.4 ML SYRINGE SC SCH (20:01)
[2017-08-06] MEDS ORDERED: Cetirizine HCl 10 MG TAB PO SCH (21:00)
[2017-08-07] MEDS: Piperacillin/Tazobactam 4.5 GM in Sodium Chloride 0.9% 100 ML IVPB SCH ×5 (00:13→23:41)
[2017-08-07] MEDS: Lactated Ringer's 1,000 ML IV SCH ×3 (01:51→08:02)
[2017-08-07] MEDS: Albumin 25% 25 GM/100 ML BOT IVPB SCH ×2 (03:25→10:07)
[2017-08-07 06:02] LABS: Anion Gap 9 mmol/L (10-20); BUN (Urea Nitrogen) 12 mg/dL (9.8-20.1); Calc. Creatinine Clearance 110 mL/min (70-130); Calcium 8.4 mg/dL (7.8-10.44); Carbon Dioxide 26 mmol/L (22-29); Chloride 107 mmol/L (98-107); Estimated GFR-MDRD Greater than 90; Glucose 76 mg/dL (70-105); Potassium 3.3 mmol/L (3.5-5.1); Sodium 139 mmol/L (136-145)
[2017-08-07 06:07] LABS: #Eosinphils 0.1 thou/uL (0.0-0.7); #Lymphocytes 1.2 thou/uL (1.20-3.40); #Monocytes 0.4 thou/uL (0.11-0.59); #Neutrophils 6.9 thou/uL (1.40-6.50); %Basophils 0.4 % (0.0-1.0); %Eosinophils 1.4 % (0.0-10.0); %Lymphocytes 13.5 % (21.0-51.0); %Monocytes 4.9 % (0.0-10.0); %Neutrophils 79.8 % (42.0-75.0); Hemoglobin 7.9 g/dL (12.0-16.0); Mean Corpuscular HGB CONC 31.2 g/dL (32.0-36.0); Mean Corpuscular Hemoglobin 28.4 pg (27.0-31.0); Mean Corpuscular Volume 90.9 fl (81.0-99.0); Mean Platelet Volume 8.2 fL (7.4-10.4); Platelet Count 250 thou/uL (130-400); RBC Distribution Width 13.5 % (11.5-14.5); White Blood Cell (WBC) Count 8.6 thou/uL (4.8-10.8)
[2017-08-07] MEDS: Cetirizine HCl 10 MG TAB PO SCH (07:51)
[2017-08-07] MEDS: Famotidine/PF 20 mg/2ml Vial SLOW IVP SCH ×2 (07:58→19:27)
--- NOTE | 2017-08-07 10:06 | PRG ---
DATE OF SERVICE: 08/07/2017 Anita Carrizales is doing well today. OBJECTIVE: VITAL SIGNS: Temperature 97.7 degrees, heart rate 110-120, respiratory rate 16, saturation 92%. LUNGS: Clear to auscultation. CARDIAC: Sinus tachycardia. ABDOMEN: Soft, occasional bowel sounds. She has had flatus in her colostomy bag. Her colostomy is healthy. Her wound VAC is in place and it will be changed tomorrow. LABORATORY: White count 8, hemoglobin 7.9, sodium 139, potassium 3.3, chloride 107, BUN 12. ASSESSMENT AND PLAN: 1. Recovering gastrointestinal function increased to clear liquids today, full liquids as tolerated. 2. Colostomy care. 3. Wound VAC care. 4. Hypokalemia, replace. 5. Hemoglobin slightly decreased with her tachycardia. We will check her CBC and base met at noon a nd again in the morning. We will check a chest x-ray since her sats are slightly low. Actually she looks very good clinically. We will follow her heart rate.
--- NOTE | 2017-08-07 11:28 | RAD ---
CHEST 2 VIEWS: Date: 08/07/17 HISTORY: Postop tachycardia. COMPARISON: Chest 1 view dated 08/05/17. FINDINGS: Central venous catheter is in place with tip at the mid to lower SVC, somewhat retracted from the com parison examination. There is likely atelectasis within the lingula and right middle lobe. Small layering effusions. IMPRESSION: 1. Bilateral layering pleural effusions. 2. Central venous catheter appears to have been retracted a few centimeters since the comparison exa mination. POS: [facility]
[2017-08-07] MEDS: Potassium Chloride 40 MEQ in Sodium Chloride 0.45% 1,000 ML IV SCH (11:39)
[2017-08-07] MEDS ORDERED: Acetaminophen 1,000 MG in Premix Bag 1 BAG IVPB PRN (14:22)
[2017-08-07] MEDS ORDERED: Ketorolac Tromethamine 30 MG/ML VIAL IVP PRN (14:23)
[2017-08-07] MEDS: Promethazine HCl 25 MG/ML VIAL SLOW IVP PRN (14:43)
[2017-08-07 17:21] LABS: #Eosinphils 0.1 thou/uL (0.0-0.7); #Lymphocytes 1.4 thou/uL (1.20-3.40); #Monocytes 0.3 thou/uL (0.11-0.59); #Neutrophils 7.1 thou/uL (1.40-6.50); %Basophils 0.1 % (0.0-1.0); %Eosinophils 0.8 % (0.0-10.0); %Lymphocytes 15.8 % (21.0-51.0); %Monocytes 3.2 % (0.0-10.0); %Neutrophils 80.2 % (42.0-75.0); Hemoglobin 7.7 g/dL (12.0-16.0); Mean Corpuscular HGB CONC 32.5 g/dL (32.0-36.0); Mean Corpuscular Hemoglobin 29.6 pg (27.0-31.0); Mean Corpuscular Volume 91.1 fl (81.0-99.0); Mean Platelet Volume 6.2 fL (7.4-10.4); Platelet Count 208 thou/uL (130-400); RBC Distribution Width 13.2 % (11.5-14.5); White Blood Cell (WBC) Count 8.9 thou/uL (4.8-10.8)
[2017-08-07 17:41] LABS: Anion Gap 12 mmol/L (10-20); BUN (Urea Nitrogen) 9 mg/dL (9.8-20.1); Calc. Creatinine Clearance 111 mL/min (70-130); Calcium 8.2 mg/dL (7.8-10.44); Carbon Dioxide 24 mmol/L (22-29); Chloride 106 mmol/L (98-107); Estimated GFR-MDRD Greater than 90; Glucose 67 mg/dL (70-105); Potassium 3.3 mmol/L (3.5-5.1); Sodium 139 mmol/L (136-145)
[2017-08-07] MEDS: Enoxaparin Sodium 40 MG/0.4 ML SYRINGE SC SCH (19:27)
--- NOTE | 2017-08-07 22:02 | PRG ---
DATE OF SERVICE: 08/06/2017 HISTORY OF PRESENT ILLNESS: Ms. Anita Carrizales is a very pleasant 51-year-old female with recu rrent diverticulitis, status post loop ileostomy and subsequent colostomy takedown. The patient had a barium enema on Monday and was found to have obstruction in the retrosternal area. On 08/05/2017, she underwent balloon dilation. Unfortunately, she had a perforation of the anastomotic area and und erwent emergency surgery by Dr. Sam. She underwent colonoscopy. The patient appears comfortable but at this time she is complaining of lot of pain. DIRECTOR NEW PRODUCT pump. PHYSICAL EXAMINATION: GENERAL: In moderate discomfort. VITAL SIGNS: She is afebrile. Her pulse 104, blood pressure 117/72. CARDIOVASCULAR AND LUNGS: Within normal limits. ABDOMEN: Mildly distended. She is tender across the lower abdomen. There is no rebound. ADMITTING DIAGNOSES: Colonic perforation, balloon dilation, status post surgery and colostomy. PLAN: Pain controlled with DIRECTOR NEW PRODUCT pump and symptomatic treatment.
--- NOTE | 2017-08-07 22:03 | PRG ---
DATE OF SERVICE: 08/07/2017 SUBJECTIVE: Ms. Anita Carrizales is a 51-year-old female with recurrent diverticulitis, sigmoid stricture. The patient underwent sigmoid resection with loop ileostomy and end-to-end anastomosis. The patient underwent revision of the ileostomy about a week ago. The patient has not able to pass any gas and had a barium enema which revealed anastomotic stricture obstruction. She underwent dilation on 08/05/2017 and was found to have a colonic perforation. She underwent emergent surgery by Dr. Sam with colostomy. She is doing well except for the lower abdominal pain. She is on LIBRARIAN HEAD pump. PHYSICAL EXAMINATION: GENERAL: Afebrile, temperature 98.6 degrees Fahrenheit, pulse is 120, blood pressure 111/67. CARDIOVASCULAR SYSTEM: Lungs within normal limits. ABDOMEN: Distended mildly, soft to palpate. Abdomen is tender across lower abdomen. LABORATORY DATA: CBC; WBC 8,600, hemoglobin 7.9, hematocrit 23.4. MCV is 90.9. Polymorphs 79 and lymphocytes 13. Chemistries show sodium 139, potassium 3.3, chloride 107, bicarbonate 26, BUN is 12, creatinine 0.68. PLAN: 1. Continue IV fluids. 2. Analgesics and I believe she can probably tarted on clear liquids_. MTDD
[2017-08-08] MEDS: Potassium Chloride 40 MEQ in Sodium Chloride 0.45% 1,000 ML IV SCH (05:20)
[2017-08-08] MEDS: Piperacillin/Tazobactam 4.5 GM in Sodium Chloride 0.9% 100 ML IVPB SCH ×3 (05:27→17:15)
[2017-08-08 06:29] LABS: #Eosinphils 0.1 thou/uL (0.0-0.7); #Lymphocytes 1.3 thou/uL (1.20-3.40); #Monocytes 0.4 thou/uL (0.11-0.59); #Neutrophils 6.5 thou/uL (1.40-6.50); %Basophils 0.3 % (0.0-1.0); %Eosinophils 1.3 % (0.0-10.0); %Lymphocytes 15.9 % (21.0-51.0); %Monocytes 5.3 % (0.0-10.0); %Neutrophils 77.2 % (42.0-75.0); Mean Corpuscular HGB CONC 30.7 g/dL (32.0-36.0); Mean Corpuscular Hemoglobin 28.1 pg (27.0-31.0); Mean Corpuscular Volume 91.5 fl (81.0-99.0); Mean Platelet Volume 7.1 fL (7.4-10.4); Platelet Count 273 thou/uL (130-400); RBC Distribution Width 13.5 % (11.5-14.5); Red Blood Cell (RBC) Count 2.85 mill/uL (4.20-5.40); White Blood Cell (WBC) Count 8.4 thou/uL (4.8-10.8)
[2017-08-08 06:35] LABS: Anion Gap 13 mmol/L (10-20); BUN (Urea Nitrogen) 9 mg/dL (9.8-20.1); Calc. Creatinine Clearance 124 mL/min (70-130); Calcium 8.4 mg/dL (7.8-10.44); Carbon Dioxide 22 mmol/L (22-29); Chloride 107 mmol/L (98-107); Estimated GFR-MDRD Greater than 90; Potassium 3.7 mmol/L (3.5-5.1); Sodium 138 mmol/L (136-145)
[2017-08-08 06:52] LABS: Glucose 54 mg/dL (70-105)
[2017-08-08] MEDS: Cetirizine HCl 10 MG TAB PO SCH (08:19)
[2017-08-08] MEDS: Famotidine/PF 20 mg/2ml Vial SLOW IVP SCH ×2 (08:21→21:13)
[2017-08-08] MEDS ORDERED: Potassium Chloride 40 MEQ in Sodium Chloride 0.45% 1,000 ML IV SCH (09:45)
--- NOTE | 2017-08-08 10:05 | PRG ---
DATE OF SERVICE: 08/08/2017 Anita Carrizales is doing well today. OBJECTIVE: VITAL SIGNS: Temperature 98.7, 115 heart rate, respiration rate 14, 135/87. LABORATORY: Hemoglobin is 8, white count is 8.4. Basic metabolic profile was unremarkable. Glucose was low today and she was changed to D5 IV solution. LUNGS: Clear to auscultation. CARDIAC: Regular rate and rhythm without murmur or gallop. ABDOMEN: Soft, bowel sounds present. There has been some stool in her colostomy bag. Of note, the patient had some leakage around her central line, but there is no evidence that the line is leaking itself. This is more just peripheral leakage. She has some peripheral edema. At this point, she will resume full liquids, GI function seems to resuming. She will be instructed on colostomy care. Continue D5 half normal saline with 40 of K and TKO her IV fluids as she seems to b e starting to mobilize fluids.
[2017-08-08] MEDS: Enoxaparin Sodium 40 MG/0.4 ML SYRINGE SC SCH (21:12)
[2017-08-09] MEDS: Piperacillin/Tazobactam 4.5 GM in Sodium Chloride 0.9% 100 ML IVPB SCH ×4 (00:01→22:18)
[2017-08-09] MEDS: Promethazine HCl 25 MG/ML VIAL SLOW IVP PRN ×2 (06:17→18:25)
[2017-08-09 06:32] LABS: Hemoglobin 8.5 g/dL (12.0-16.0); Mean Corpuscular Hemoglobin 29.8 pg (27.0-31.0); Mean Platelet Volume 6.7 fL (7.4-10.4); Platelet Count 274 thou/uL (130-400); RBC Distribution Width 13.5 % (11.5-14.5); Red Blood Cell (RBC) Count 2.85 mill/uL (4.20-5.40); White Blood Cell (WBC) Count 9.7 thou/uL (4.8-10.8)
[2017-08-09 06:40] LABS: Anion Gap 13 mmol/L (10-20); BUN (Urea Nitrogen) 4 mg/dL (9.8-20.1); Calc. Creatinine Clearance 129 mL/min (70-130); Calcium 8.4 mg/dL (7.8-10.44); Carbon Dioxide 25 mmol/L (22-29); Chloride 103 mmol/L (98-107); Estimated GFR-MDRD Greater than 90; Glucose 76 mg/dL (70-105); Potassium 3.6 mmol/L (3.5-5.1); Sodium 137 mmol/L (136-145)
[2017-08-09 07:31] LABS: Band 13 % (5-11); Hypochromia SLIGHT = 6-15 cells (100X) (0-5/hpf); Lymphocytes 20 % (21-51); MDiff Complete? YES; Monocytes 11 % (0-10); Neutrophil 56 % (42-75); Polychromasia SLIGHT = 2-3 cells (100X) (0-2/hpf)
[2017-08-09] MEDS: Famotidine/PF 20 mg/2ml Vial SLOW IVP SCH ×2 (09:15→22:13)
[2017-08-09] MEDS: Cetirizine HCl 10 MG TAB PO SCH (09:16)
--- NOTE | 2017-08-09 11:39 | PRG ---
DATE OF SERVICE: 08/09/2017 Ms. Carrizales did not tolerate her breakfast very well. She had some nausea. She has been walking. PHYSICAL EXAMINATION: VITAL SIGNS: Her pulse is 116, blood pressure 116/78. She is afebrile, respirations are 20, O2 sat is 96% on 1 liter. Urine output; she has voided multiple times. ABDOMEN: Soft, it is not distended, appropriately tender midline and right lower quadrant wound VAC. Ostomy colostomy in the left abdomen with pink mucosa, small amount of stool, but no air in the bag . LABORATORY: White blood cell count is 9, hemoglobin 8.5, platelet count is 274. She has 13 bands. Creatinine 0.58. ASSESSMENT: Postop left colectomy with end colostomy on Zosyn. PLAN: She was only really tolerating liquids. The regular food made her have nausea this morning so we will put her back on GI soft, but I suspect she is going to be doing liquids. We will start TPN for the next few days until her diet is more easily tolerable. Continue dressing change. We will lo ok at the wound tomorrow with the Wound Care Team. Would consider secondary closure at least partial ly at some point.
[2017-08-09] MEDS: Enoxaparin Sodium 40 MG/0.4 ML SYRINGE SC SCH (22:11)
[2017-08-09] MEDS: MULTIVITAMINS IV SCH (22:21)
[2017-08-09] MEDS: [UNRECOGNIZED DRUG - OTHER] IV SCH (22:21)
[2017-08-09] MEDS: POTASSIUM ACETATE IV SCH (22:21)
[2017-08-09] MEDS: SODIUM ACETATE IV SCH (22:21)
[2017-08-10] MEDS: Piperacillin/Tazobactam 4.5 GM in Sodium Chloride 0.9% 100 ML IVPB SCH ×3 (06:14→21:46)
[2017-08-10 06:31] LABS: Hemoglobin 8.3 g/dL (12.0-16.0); Mean Corpuscular HGB CONC 31.7 g/dL (32.0-36.0); Mean Corpuscular Hemoglobin 28.5 pg (27.0-31.0); Mean Corpuscular Volume 90.1 fl (81.0-99.0); Mean Platelet Volume 6.6 fL (7.4-10.4); Platelet Count 293 thou/uL (130-400); RBC Distribution Width 13.6 % (11.5-14.5); Red Blood Cell (RBC) Count 2.92 mill/uL (4.20-5.40); White Blood Cell (WBC) Count 9.9 thou/uL (4.8-10.8)
[2017-08-10 06:38] LABS: ALT (SGPT) 26 U/L (8-55); AST (SGOT) 39 U/L (5-34); Albumin 3.1 g/dL (3.5-5.0); Alkaline Phosphatase 144 U/L (40-150); Anion Gap 11 mmol/L (10-20); BUN (Urea Nitrogen) 5 mg/dL (9.8-20.1); Calc. Creatinine Clearance 133 mL/min (70-130); Calcium 8.1 mg/dL (7.8-10.44); Carbon Dioxide 26 mmol/L (22-29); Cardiac Risk 11.9 (Less than 4.5); Chloride 105 mmol/L (98-107); Cholesterol 107 mg/dl (< 200 Desired); Estimated GFR-MDRD Greater than 90; Globulin 2.3 g/dL (2.4-3.5); Glucose 108 mg/dL (70-105); HDL Cholesterol 9 mg/dL (>60 Neg Risk); LDL Cholesterol, Calculated 60 mg/dL; Magnesium 1.8 mg/dL (1.6-2.6); Potassium 3.2 mmol/L (3.5-5.1); Protein, Total 5.4 g/dL (6.0-8.3); Sodium 139 mmol/L (136-145); Triglycerides 190 mg/dL (Less than 150)
[2017-08-10 06:45] LABS: Phosphorus 1.9 mg/dL (2.3-4.7)
[2017-08-10 07:51] LABS: Band 13 % (5-11); Eosinophils 2 % (0-10); Lymphocytes 18 % (21-51); MDiff Complete? YES; Monocytes 7 % (0-10); Neutrophil 60 % (42-75); Polychromasia SLIGHT = 2-3 cells (100X) (0-2/hpf)
[2017-08-10] MEDS ORDERED: Potassium Phosphate 30 MMOL in Sodium Chloride 0.9% 500 ML IVPB SCH (08:30)
[2017-08-10] MEDS: Cetirizine HCl 10 MG TAB PO SCH (09:21)
[2017-08-10] MEDS: Famotidine/PF 20 mg/2ml Vial SLOW IVP SCH ×2 (09:21→21:39)
[2017-08-10 09:52] LABS: INR-International Normal Ratio 1.2; PTT 34.1 SEC (22.9-36.1); Prothrombin Time 15.7 SEC (12.0-14.7)
--- NOTE | 2017-08-10 11:23 | PRG ---
DATE OF SERVICE: 08/10/2017 SUBJECTIVE: Ms. Carrizales is doing okay today. She is seen on wound VAC change. Still complaining of b loating, not much of an appetite, mild nausea. PHYSICAL EXAMINATION: VITAL SIGNS: Blood pressure is 105/65, pulse 108, temperature 97.7. LABORATORY DATA: White cell count is 9, hemoglobin 8.3, creatinine 0.56. Her phosphorus is low this morning at 1.9. ASSESSMENT: Postoperative diverting colostomy and resection of previous anastomosis for perforation at stricture site, slow improvement. PLAN: Continue TPN until able to take more by mouth. Continue wound VAC and broad-spectrum antibiot ics. I wrote for some phosphorus this morning.
[2017-08-10] MEDS: Promethazine HCl 25 MG/ML VIAL SLOW IVP PRN (11:26)
[2017-08-10] MEDS: fentaNYL Citrate/PF 2,000 MCG in Sodium Chloride 0.9% 60 ML IV PRN (18:46)
[2017-08-10] MEDS: Enoxaparin Sodium 40 MG/0.4 ML SYRINGE SC SCH (21:39)
[2017-08-10] MEDS: MULTIVITAMINS IV SCH (23:00)
[2017-08-10] MEDS: SODIUM ACETATE IV SCH (23:00)
[2017-08-10] MEDS: [UNRECOGNIZED DRUG - OTHER] IV SCH (23:00)
[2017-08-10] MEDS: POTASSIUM ACETATE IV SCH (23:00)
[2017-08-11] MEDS: Piperacillin/Tazobactam 4.5 GM in Sodium Chloride 0.9% 100 ML IVPB SCH ×3 (06:22→22:26)
[2017-08-11 07:30] LABS: ALT (SGPT) 26 U/L (8-55); AST (SGOT) 32 U/L (5-34); Albumin 3.1 g/dL (3.5-5.0); Alkaline Phosphatase 118 U/L (40-150); Anion Gap 11 mmol/L (10-20); BUN (Urea Nitrogen) 9 mg/dL (9.8-20.1); Bilirubin, Total 0.5 mg/dL (0.2-1.2); Calc. Creatinine Clearance 124 mL/min (70-130); Calcium 8.3 mg/dL (7.8-10.44); Carbon Dioxide 26 mmol/L (22-29); Cardiac Risk 9.6 (Less than 4.5); Chloride 108 mmol/L (98-107); Cholesterol 106 mg/dl (< 200 Desired); Estimated GFR-MDRD Greater than 90; Globulin 2.7 g/dL (2.4-3.5); Glucose 136 mg/dL (70-105); HDL Cholesterol 11 mg/dL (>60 Neg Risk); LDL Cholesterol, Calculated 60 mg/dL; Potassium 3.9 mmol/L (3.5-5.1); Protein, Total 5.8 g/dL (6.0-8.3); Sodium 141 mmol/L (136-145); Triglycerides 174 mg/dL (Less than 150)
[2017-08-11] MEDS: Cetirizine HCl 10 MG TAB PO SCH (09:50)
[2017-08-11] MEDS: Famotidine/PF 20 mg/2ml Vial SLOW IVP SCH ×2 (09:50→20:35)
[2017-08-11] MEDS: Enoxaparin Sodium 40 MG/0.4 ML SYRINGE SC SCH (20:35)
[2017-08-11] MEDS: [UNRECOGNIZED DRUG - OTHER] IV SCH (22:26)
[2017-08-11] MEDS: POTASSIUM ACETATE IV SCH (22:26)
[2017-08-11] MEDS: MULTIVITAMINS IV SCH (22:26)
[2017-08-11] MEDS: SODIUM ACETATE IV SCH (22:26)
[2017-08-12] MEDS: fentaNYL Citrate/PF 2,000 MCG in Sodium Chloride 0.9% 60 ML IV PRN (02:24)
[2017-08-12] MEDS ORDERED: Lidocaine 2% w/Epinephrine 1:200K 20 ML VIAL FS SCH (03:00)
[2017-08-12 05:21] LABS: ALT (SGPT) 38 U/L (8-55); AST (SGOT) 51 U/L (5-34); Albumin 3.2 g/dL (3.5-5.0); Alkaline Phosphatase 143 U/L (40-150); Anion Gap 13 mmol/L (10-20); BUN (Urea Nitrogen) 11 mg/dL (9.8-20.1); Bilirubin, Total 0.6 mg/dL (0.2-1.2); Calc. Creatinine Clearance 120 mL/min (70-130); Calcium 8.2 mg/dL (7.8-10.44); Carbon Dioxide 24 mmol/L (22-29); Cardiac Risk 8.6 (Less than 4.5); Chloride 105 mmol/L (98-107); Cholesterol 103 mg/dl (< 200 Desired); Estimated GFR-MDRD Greater than 90; Glucose 102 mg/dL (70-105); HDL Cholesterol 12 mg/dL (>60 Neg Risk); LDL Cholesterol, Calculated 62 mg/dL; Magnesium 2.1 mg/dL (1.6-2.6); Potassium 4.4 mmol/L (3.5-5.1); Protein, Total 6.2 g/dL (6.0-8.3); Sodium 138 mmol/L (136-145); Triglycerides 143 mg/dL (Less than 150)
[2017-08-12] MEDS: Piperacillin/Tazobactam 4.5 GM in Sodium Chloride 0.9% 100 ML IVPB SCH ×3 (06:04→21:34)
[2017-08-12] MEDS: Famotidine/PF 20 mg/2ml Vial SLOW IVP SCH ×2 (09:20→21:35)
[2017-08-12] MEDS: Cetirizine HCl 10 MG TAB PO SCH (09:21)
--- NOTE | 2017-08-12 11:07 | PRG ---
DATE OF SERVICE: 08/12/2017 SUBJECTIVE: Ms. Carrizales is tolerating more for dinner last night and breakfast this morning, still not having much ostomy output. Her pain is well controlled, still on [employer] SENIOR ASSOCIATE. She is ambulatory, has good urine output. OBJECTIVE: ABDOMEN: The wound was seen on wound VAC. There is some sloughing of the tissues down near the musc le, but there is no actual dehiscence. No evidence of infection. Prolene sutures were used to reapp roximate the skin slightly at the lower aspect of the wound in order to facilitate wound healing and make it towards not such a wide wound. The tissues over the deeper part of the wound were left open and wide for easier packing and wound VAC placement. ASSESSMENT: Resolving postop ileus, tolerating food, but not much ostomy output. PLAN: We will check KUB to rule out obstructive pattern. If negative, then give Milk of Magnesia to facilitate more ostomy output.
--- NOTE | 2017-08-12 12:33 | RAD ---
ABDOMEN THREE VIEWS: HISTORY: Postop ileus. FINDINGS: A left lower quadrant ostomy is present. Air is noted in loops of small and large bowel. Some of th e small bowel loops are dilated. No free air is seen. Surgical clips are present. There are multip le pelvic phleboliths. Findings are likely due to ileus and less likely obstruction. POS: [facility]
[2017-08-12] MEDS ORDERED: Milk Of Magnesia 30 ML UDCUP PO SCH (17:45)
[2017-08-12] MEDS: Enoxaparin Sodium 40 MG/0.4 ML SYRINGE SC SCH (21:34)
[2017-08-12] MEDS: POTASSIUM ACETATE IV SCH (22:21)
[2017-08-12] MEDS: [UNRECOGNIZED DRUG - OTHER] IV SCH (22:21)
[2017-08-12] MEDS: MULTIVITAMINS IV SCH (22:21)
[2017-08-12] MEDS: SODIUM ACETATE IV SCH (22:21)
[2017-08-13] MEDS: Piperacillin/Tazobactam 4.5 GM in Sodium Chloride 0.9% 100 ML IVPB SCH ×3 (05:43→21:29)
[2017-08-13 06:44] LABS: ALT (SGPT) 42 U/L (8-55); AST (SGOT) 53 U/L (5-34); Albumin 3.2 g/dL (3.5-5.0); Alkaline Phosphatase 161 U/L (40-150); Anion Gap 11 mmol/L (10-20); BUN (Urea Nitrogen) 13 mg/dL (9.8-20.1); Bilirubin, Total 0.7 mg/dL (0.2-1.2); Calc. Creatinine Clearance 118 mL/min (70-130); Calcium 8.4 mg/dL (7.8-10.44); Carbon Dioxide 28 mmol/L (22-29); Cardiac Risk 6.8 (Less than 4.5); Chloride 102 mmol/L (98-107); Cholesterol 95 mg/dl (< 200 Desired); Estimated GFR-MDRD Greater than 90; Globulin 3.2 g/dL (2.4-3.5); Glucose 122 mg/dL (70-105); HDL Cholesterol 14 mg/dL (>60 Neg Risk); LDL Cholesterol, Calculated 57 mg/dL; Magnesium 2.3 mg/dL (1.6-2.6); Phosphorus 3.3 mg/dL (2.3-4.7); Potassium 4.3 mmol/L (3.5-5.1); Protein, Total 6.4 g/dL (6.0-8.3); Sodium 137 mmol/L (136-145); Triglycerides 122 mg/dL (Less than 150)
[2017-08-13] MEDS: Promethazine HCl 25 MG/ML VIAL SLOW IVP PRN (07:07)
[2017-08-13] MEDS: Cetirizine HCl 10 MG TAB PO SCH (09:22)
[2017-08-13] MEDS: Famotidine/PF 20 mg/2ml Vial SLOW IVP SCH ×2 (09:22→21:29)
--- NOTE | 2017-08-13 09:57 | PRG ---
DATE OF SERVICE: 08/13/2017 SUBJECTIVE: Ms. Carrizales still more bloated today. She had pretty significant nausea earlier that was improved. She was doing a little bit of GI soft diet and does not have much of an appetite. I gave her a dose of Milk of Magnesia yesterday with minimal output into her colostomy. Plain films yesterd ay showed some mild dilation of the intestine and colon, but no significant ileus or obstruction. PHYSICAL EXAMINATION: VITAL SIGNS: Her pulse is 112, blood pressure is 114/76. She is afebrile. Good urine output. ABDOMEN: Distended, decreased bowel sounds, but appropriately tender, midline wound VAC. Colostomy in the left upper quadrant, there is viable mucosa with no stool in the bag. LABORATORY DATA: Chemistry shows sodium 137, potassium of 4.3, creatinine of 0.63. Bilirubin normal . Blood sugar normal. ASSESSMENT: Prolonged ileus status post Jackie's procedure. PLAN: Continue TPN, I will put her back on clear liquids as tolerated. We will check a CBC since it has been a few days if white blood cell count is elevated. We will order a CT scan otherwise suppor tive care wait for the ileus to resolve. Dr. Thomas will be covering for me for the next week in my a bsence.
[2017-08-13 10:45] LABS: Band 5 % (5-11); Eosinophils 3 % (0-10); Hemoglobin 8.1 g/dL (12.0-16.0); Lymphocytes 12 % (21-51); MDiff Complete? YES; Mean Corpuscular HGB CONC 30.9 g/dL (32.0-36.0); Mean Corpuscular Hemoglobin 28.4 pg (27.0-31.0); Mean Corpuscular Volume 92.1 fl (81.0-99.0); Mean Platelet Volume 7.7 fL (7.4-10.4); Monocytes 14 % (0-10); Myelocyte 2 % (0-0); Neutrophil 63 % (42-75); Nucleated RBC 1 % (0); PLT Morphology Comment Appears Increased; Platelet Count 456 thou/uL (130-400); Polychromasia SLIGHT = 2-3 cells (100X) (0-2/hpf); RBC Distribution Width 14.5 % (11.5-14.5); Reactive Lymphocytes 1 % (0-10); Red Blood Cell (RBC) Count 2.86 mill/uL (4.20-5.40)
[2017-08-13] MEDS: fentaNYL Citrate/PF 2,000 MCG in Sodium Chloride 0.9% 60 ML IV PRN (16:32)
[2017-08-13] MEDS: Enoxaparin Sodium 40 MG/0.4 ML SYRINGE SC SCH (21:28)
[2017-08-13] MEDS: [UNRECOGNIZED DRUG - OTHER] IV SCH (22:49)
[2017-08-13] MEDS: SODIUM ACETATE IV SCH (22:49)
[2017-08-13] MEDS: MULTIVITAMINS IV SCH (22:49)
[2017-08-13] MEDS: POTASSIUM ACETATE IV SCH (22:49)
[2017-08-14] MEDS: Acetaminophen 500 MG TAB PO PRN (02:09)
[2017-08-14] MEDS: Piperacillin/Tazobactam 4.5 GM in Sodium Chloride 0.9% 100 ML IVPB SCH ×3 (05:58→21:05)
[2017-08-14 06:40] LABS: ALT (SGPT) 40 U/L (8-55); AST (SGOT) 36 U/L (5-34); Alkaline Phosphatase 151 U/L (40-150); Anion Gap 11 mmol/L (10-20); BUN (Urea Nitrogen) 11 mg/dL (9.8-20.1); Bilirubin, Total 0.6 mg/dL (0.2-1.2); Calc. Creatinine Clearance 120 mL/min (70-130); Calcium 8.4 mg/dL (7.8-10.44); Carbon Dioxide 25 mmol/L (22-29); Cardiac Risk 6.4 (Less than 4.5); Chloride 108 mmol/L (98-107); Cholesterol 90 mg/dl (< 200 Desired); Estimated GFR-MDRD Greater than 90; Globulin 3.4 g/dL (2.4-3.5); Glucose 98 mg/dL (70-105); HDL Cholesterol 14 mg/dL (>60 Neg Risk); LDL Cholesterol, Calculated 53 mg/dL; Magnesium 2.4 mg/dL (1.6-2.6); Phosphorus 3.6 mg/dL (2.3-4.7); Potassium 4.2 mmol/L (3.5-5.1); Protein, Total 6.4 g/dL (6.0-8.3); Sodium 140 mmol/L (136-145); Triglycerides 115 mg/dL (Less than 150)
[2017-08-14] MEDS: Famotidine/PF 20 mg/2ml Vial SLOW IVP SCH ×2 (08:33→21:05)
[2017-08-14] MEDS: Cetirizine HCl 10 MG TAB PO SCH (08:33)
[2017-08-14] MEDS: Enoxaparin Sodium 40 MG/0.4 ML SYRINGE SC SCH (21:05)
[2017-08-14] MEDS: POTASSIUM ACETATE IV SCH (22:08)
[2017-08-14] MEDS: SODIUM ACETATE IV SCH (22:08)
[2017-08-14] MEDS: MULTIVITAMINS IV SCH (22:08)
[2017-08-14] MEDS: [UNRECOGNIZED DRUG - OTHER] IV SCH (22:08)
[2017-08-15] MEDS: Piperacillin/Tazobactam 4.5 GM in Sodium Chloride 0.9% 100 ML IVPB SCH ×3 (05:12→22:03)
[2017-08-15 05:59] LABS: ALT (SGPT) 34 U/L (8-55); AST (SGOT) 28 U/L (5-34); Albumin 2.8 g/dL (3.5-5.0); Alkaline Phosphatase 157 U/L (40-150); Anion Gap 10 mmol/L (10-20); BUN (Urea Nitrogen) 12 mg/dL (9.8-20.1); Bilirubin, Total 0.4 mg/dL (0.2-1.2); Calc. Creatinine Clearance 124 mL/min (70-130); Calcium 8.2 mg/dL (7.8-10.44); Carbon Dioxide 26 mmol/L (22-29); Cardiac Risk 6.2 (Less than 4.5); Chloride 105 mmol/L (98-107); Cholesterol 80 mg/dl (< 200 Desired); Estimated GFR-MDRD Greater than 90; Globulin 3.4 g/dL (2.4-3.5); Glucose 94 mg/dL (70-105); HDL Cholesterol 13 mg/dL (>60 Neg Risk); LDL Cholesterol, Calculated 47 mg/dL; Magnesium 2.1 mg/dL (1.6-2.6); Phosphorus 3.4 mg/dL (2.3-4.7); Potassium 4.1 mmol/L (3.5-5.1); Protein, Total 6.2 g/dL (6.0-8.3); Sodium 137 mmol/L (136-145); Triglycerides 99 mg/dL (Less than 150)
[2017-08-15] MEDS: Acetaminophen 500 MG TAB PO PRN (06:56)
[2017-08-15] MEDS: fentaNYL Citrate/PF 2,000 MCG in Sodium Chloride 0.9% 60 ML IV PRN (06:58)
[2017-08-15] MEDS: Promethazine HCl 25 MG/ML VIAL SLOW IVP PRN (07:07)
[2017-08-15] MEDS: Famotidine/PF 20 mg/2ml Vial SLOW IVP SCH ×2 (08:40→20:33)
[2017-08-15] MEDS: Cetirizine HCl 10 MG TAB PO SCH (08:40)
[2017-08-15] MEDS: Enoxaparin Sodium 40 MG/0.4 ML SYRINGE SC SCH (20:34)
[2017-08-15] MEDS: [UNRECOGNIZED DRUG - OTHER] IV SCH (22:03)
[2017-08-15] MEDS: MULTIVITAMINS IV SCH (22:03)
[2017-08-15] MEDS: SODIUM ACETATE IV SCH (22:03)
[2017-08-15] MEDS: POTASSIUM ACETATE IV SCH (22:03)
[2017-08-16] MEDS: Piperacillin/Tazobactam 4.5 GM in Sodium Chloride 0.9% 100 ML IVPB SCH ×3 (06:02→21:49)
[2017-08-16 06:48] LABS: ALT (SGPT) 29 U/L (8-55); AST (SGOT) 25 U/L (5-34); Albumin 2.8 g/dL (3.5-5.0); Alkaline Phosphatase 160 U/L (40-150); Anion Gap 12 mmol/L (10-20); BUN (Urea Nitrogen) 11 mg/dL (9.8-20.1); Bilirubin, Total 0.4 mg/dL (0.2-1.2); Calc. Creatinine Clearance 113 mL/min (70-130); Calcium 8.4 mg/dL (7.8-10.44); Carbon Dioxide 23 mmol/L (22-29); Cardiac Risk 6.5 (Less than 4.5); Chloride 107 mmol/L (98-107); Cholesterol 85 mg/dl (< 200 Desired); Estimated GFR-MDRD Greater than 90; Globulin 3.6 g/dL (2.4-3.5); Glucose 96 mg/dL (70-105); HDL Cholesterol 13 mg/dL (>60 Neg Risk); LDL Cholesterol, Calculated 47 mg/dL; Magnesium 2.1 mg/dL (1.6-2.6); Phosphorus 3.6 mg/dL (2.3-4.7); Potassium 4.2 mmol/L (3.5-5.1); Protein, Total 6.4 g/dL (6.0-8.3); Sodium 138 mmol/L (136-145); Triglycerides 125 mg/dL (Less than 150)
[2017-08-16] MEDS: Famotidine/PF 20 mg/2ml Vial SLOW IVP SCH ×2 (08:57→21:49)
[2017-08-16] MEDS: Cetirizine HCl 10 MG TAB PO SCH (08:57)
[2017-08-16] MEDS ORDERED: oxyCODONE/Acetaminophen 5 mg/325 mg Tablet PO PRN ×2 (14:23→14:24)
[2017-08-16] MEDS ORDERED: Morphine 2 MG/ML SYRINGE SLOW IVP PRN (14:25)
[2017-08-16] MEDS ORDERED: Morphine 4 MG/ML VIAL SLOW IVP PRN (14:26)
[2017-08-16] MEDS ORDERED: HYDROcodone/Acetaminophen 10/325 mg Tablet PO PRN (14:30)
[2017-08-16] MEDS: HYDROcodone/Acetaminophen 10/325 mg Tablet PO PRN ×2 (15:27→19:36)
[2017-08-16] MEDS: Enoxaparin Sodium 40 MG/0.4 ML SYRINGE SC SCH (21:49)
[2017-08-17] MEDS: HYDROcodone/Acetaminophen 10/325 mg Tablet PO PRN ×2 (03:11→07:49)
[2017-08-17] MEDS: Piperacillin/Tazobactam 4.5 GM in Sodium Chloride 0.9% 100 ML IVPB SCH (05:53)
[2017-08-17 08:49] VITALS: BP 107/72; TEMP 98.1
[2017-08-17] MEDS: Famotidine/PF 20 mg/2ml Vial SLOW IVP SCH (09:43)
[2017-08-17] MEDS: Cetirizine HCl 10 MG TAB PO SCH (09:44)
[2017-08-17] MEDS ORDERED: Famotidine 20 MG TAB PO SCH (21:00)
[2017-08-17] MEDS ORDERED: Famotidine 40 MG/4 ML VIAL IV SCH (21:00)
--- NOTE | 2017-08-22 10:43 | PQF ---
PAT CASTRO RICHARD D MD [id number] SURG B- [id number] CLINICAL DOCUMENTATION CLARIFICATION FORM: POST DISCHARGE Addendum to original discharge summary date: ____ Late entry note date: __ DATE: 08/22/2017 ATTN: DR. PASCUAL Please exercise your independent, professional judgment in responding to the clarification form. Clinical indicators are provided on the bottom of this form for your review Please check appropriate box(s): In the description of the operative procedure a _SEROSAL TEARS / OMENTAL TEARS__ was noted by the surgeon. If possible would you please further clarify if this was: [ ] Incidental occurrence inherent in the surgical procedure [ ] Complication of the procedure [ ] Other [ ] Unable to determine For continuity of documentation, please document condition throughout progress notes and discharge summary. Thank You. CLINICAL INDICATORS - SIGNS / SYMPTOMS / LABS: 08/05 OP REPORT - SEROSAL TEARS CLOSED WITH INTERRUPTED SUTURES, OMENTAL TEARS CLOSED WITH SUTURES RISK FACTORS: ILEOSTOMY MALFUNCTION DIVERTICULITIS TREATMENTS: Surgery / surgical instrumentation (This form is maintained as a part of the permanent medical record) 2014 [employer]. All Rights Reserved Patricia Johnson, EL[place], TRANSPORT [email or web address] [phone] JOSSIE
--- NOTE | 2017-10-11 07:51 | DIS ---
DATE OF ADMISSION: 07/31/2018 DATE OF DISCHARGE: 08/17/2017 ADMIT DIAGNOSIS: Attention to ileostomy, status post anastomotic leak from left colectomy for chroni c severe diverticulitis. DISCHARGE DIAGNOSIS: Attention to ileostomy, status post anastomotic leak from left colectomy for ch ronic severe diverticulitis. PROCEDURES: 1. Ileostomy takedown by Dr. Whiting without complication. 2. Colonoscopy and attempted dilation by Dr. Lockett. 3. Exploratory laparotomy, abdominal washout and colostomy by Dr. Sam without complication. CONDITION AT DISCHARGE: Improved. STAFF: Dr. Bart Whiting. HOSPITAL COURSE: The patient underwent ileostomy takedown. She previously had a barium enema reveal ing no obvious significant stenosis at her previous low anastomosis; however, she started to present with obstructive symptoms. I had GI to see her for flex sig which revealed significant stenosis at h er previous anastomosis. Attempts dilation was complicated by a perforation of this anastomosis. Th e patient developed peritonitis in my absence, Dr. Sam performed laparotomy, washout and colostomy . The patient's postop course was complicated by ileus for which she was on some TPN. Eventually, t his resolved. Her wound was left open and she had wound VAC. Ultimately discharged home for outpati ent wound care. She had a PICC line placed, this was left in place on discharge to follow up with me in a few weeks.
== END 2017-08-17 11:55 | disposition home or self-care (01) | DRG 329 ==
LOC: 2SE 07-31 13:00 → SJJU 07-31 18:55
PROVIDERS: ADMIT Surgery; ATTEND Surgery
PROC: 0DBB0ZZ Excision of Ileum, Open Approach (ICD-10-PCS; principal; 2017-07-31)
PROC: 0D1N0Z4 Bypass Sigmoid Colon to Cutaneous, Open Approach (ICD-10-PCS; 2017-08-05)
PROC: 02HV33Z Insertion of Infusion Device into Superior Vena Cava, Percutaneous Approach (ICD-10-PCS; 2017-08-05)
PROC: 0D7N8ZZ Dilation of Sigmoid Colon, Via Natural or Artificial Opening Endoscopic (ICD-10-PCS; 2017-08-05)
PROC: 3E0436Z Introduction of Nutritional Substance into Central Vein, Percutaneous Approach (ICD-10-PCS; 2017-08-09)
DX: K94.13 Enterostomy malfunction (principal); K63.1 Perforation of intestine (nontraumatic); K56.609 Unspecified intestinal obstruction, unspecified as to partial versus complete obstruction; K57.92 Diverticulitis of intestine, part unspecified, without perforation or abscess without bleeding; K56.7 Ileus, unspecified; K21.9 Gastro-esophageal reflux disease without esophagitis; Y83.8 Other surgical procedures as the cause of abnormal reaction of the patient, or of later complication, without mention of misadventure at the time of the procedure; M81.0 Age-related osteoporosis without current pathological fracture; E87.6 Hypokalemia
CPT/HCPCS: 36415; 36416; 71010; 71020; 74000; 74020; 74176; 74270; 80048; 80053; 80061; 81001; 83735; 84100; 84134; 85014; 85018; 85025; 85610; 85730; 86850; 86900; 86901; 88304; 94760; A4216; C1726; J0131; J0694; J1100; J1170; J1650; J1885; J2001; J2250; J2405; J2543; J2550; J2704; J3010; J3480; J7050; J7120; P9047; S0020; S0028

== ENCOUNTER 2017-08-21 10:25 | Inpatient (IN) | payer BC, OTHER ==
[~2017-08-21 10:25] MED LIST: Heparin 1,000 UNITS/ML VIAL ONE
[2017-08-21] MEDS ORDERED: Ondansetron HCl/PF 4 MG/2 ML Vial ONE ×2 (11:49→12:48)
[2017-08-21 12:22] LABS: #Basophils 0.1 thou/uL (0.0-0.2); #Eosinphils 0.1 thou/uL (0.0-0.7); #Lymphocytes 1.7 thou/uL (1.20-3.40); #Monocytes 0.4 thou/uL (0.11-0.59); #Neutrophils 6.4 thou/uL (1.40-6.50); %Basophils 0.9 % (0.0-1.0); %Eosinophils 0.6 % (0.0-10.0); %Lymphocytes 19.9 % (21.0-51.0); %Monocytes 4.4 % (0.0-10.0); %Neutrophils 74.1 % (42.0-75.0); Hemoglobin 11.3 g/dL (12.0-16.0); Mean Corpuscular HGB CONC 32.6 g/dL (32.0-36.0); Mean Corpuscular Hemoglobin 28.6 pg (27.0-31.0); Mean Corpuscular Volume 87.8 fl (81.0-99.0); Mean Platelet Volume 6.4 fL (7.4-10.4); Platelet Count 1126 thou/uL (130-400); Red Blood Cell (RBC) Count 3.94 mill/uL (4.20-5.40); White Blood Cell (WBC) Count 8.6 thou/uL (4.8-10.8)
[2017-08-21 12:38] LABS: ALT (SGPT) 26 U/L (8-55); AST (SGOT) 27 U/L (5-34); Albumin 4.3 g/dL (3.5-5.0); Alkaline Phosphatase 164 U/L (40-150); Anion Gap 18 mmol/L (10-20); BUN (Urea Nitrogen) 9 mg/dL (9.8-20.1); Bilirubin, Total 0.4 mg/dL (0.2-1.2); Calc. Creatinine Clearance 0 mL/min (70-130); Calcium 10.3 mg/dL (7.8-10.44); Carbon Dioxide 22 mmol/L (22-29); Chloride 104 mmol/L (98-107); Estimated GFR-MDRD 88; Glucose 102 mg/dL (70-105); Potassium 3.5 mmol/L (3.5-5.1); Protein, Total 9.3 g/dL (6.0-8.3); Sodium 140 mmol/L (136-145)
[2017-08-21 13:08] LABS: Large Platelets SLIGHT; Polychromasia SLIGHT = 2-3 cells (100X) (0-2/hpf)
--- NOTE | 2017-08-21 14:00 | CT ---
CT ABDOMEN AND PELVIS WITH CONTRAST: HISTORY: Abdominal pain. Kuna CT abdomen 08/05/17. FINDINGS: Large left layering pleural effusion. The right lung appears relatively clear. Calcified granulomas. No pericardial effusion. There appears to be an open wound in the anterior abdominal wall with near-completely collapsed fluid collection which appears to be draining to the open abdomen. There is postsurgical change in the pe lvis. No dilated loops of large or small bowel. There is mild thick-walled and sclerosal enhancemen t of the small bowel and pelvis. The aortoiliac contour is normal. Focal hepatic segment 4A. The spleen has a few calcified granulom as. The pancreas is unremarkable. Colostomy is present in the left lower quadrant of the abdomen. Old right lower quadrant ostomy site . IMPRESSION: 1. Anterior abdominal wall wound which communicates with a nearly collapsed fluid collection along t he peritoneal lining. 2. Recent postsurgical changes in the abdomen and pelvis. No free intraperitoneal fluid. 3. New large left layering pleural effusion. 4. Mild hyperenhancement of the serosa of small bowel and pelvis may reflect peritonitis. POS: [facility]
[2017-08-21] MEDS ORDERED: Promethazine HCl 25 MG/ML VIAL ONE (14:11)
[2017-08-21] MEDS ORDERED: Benzonatate 100 MG CAP ONE (15:17)
[2017-08-21] MEDS ORDERED: HYDROcodone/Acetaminophen 10/325 mg Tablet ONE (15:25)
[2017-08-21] MEDS ORDERED: Famotidine 20 MG TAB PO SCH (15:30)
[2017-08-21 15:34] LABS: Hemoglobin 9.5 g/dL (12.0-16.0); Mean Corpuscular HGB CONC 31.9 g/dL (32.0-36.0); Mean Corpuscular Hemoglobin 28.2 pg (27.0-31.0); Mean Corpuscular Volume 88.4 fl (81.0-99.0); Mean Platelet Volume 6.4 fL (7.4-10.4); Platelet Count 961 thou/uL (130-400); Red Blood Cell (RBC) Count 3.38 mill/uL (4.20-5.40); White Blood Cell (WBC) Count 8.9 thou/uL (4.8-10.8)
--- NOTE | 2017-08-21 15:38 | HP ---
CHIEF COMPLAINT: Nausea, weakness, dehydration. HISTORY OF PRESENT ILLNESS: This is a 51-year-old female well known to me multiple previous operatio ns who was discharged home on the 4th by Dr. Thomas after a colectomy with colostomy by Dr. Sam. S he had normal stool in her bag and was tolerating regular diet at that time with minimal pain. She n ow presents with a history of nausea and unable to keep anything down for the last few days. More li quid output in her colostomy bag, mild bloating, but not as significant as previous. She was seen in the emergency department where her labs are within normal limits. Her CT scan shows postop changes, but no need for surgical intervention. There is no obstruction. She is being readmitted for dehydr ation. PAST MEDICAL HISTORY: History of GERD, migraines, osteoporosis, diverticulitis. PAST SURGICAL HISTORY: Includes: 1. Left colectomy complicated by anastomotic leak. 2. Ileostomy takedown by Dr. Whiting. 3. Left colon resection and Jackie's procedure after perforation during attempted stricture dilati on. MEDICINES: See list. ALLERGIES: CODEINE causes nausea. SOCIAL HISTORY: No smoking, alcohol or other drugs. She is . REVIEW OF SYSTEMS: Otherwise, negative. PHYSICAL EXAMINATION: VITAL SIGNS: Stable. HEENT: Sclerae are anicteric. Oropharynx clear. NECK: No lymphadenopathy. CHEST: Clear. HEART: Regular rhythm. ABDOMEN: Soft, it is mildly distended. Wound VAC is in place. Colostomy is intact in the left uppe r quadrant. There is some liquid stool in the bag. LABORATORY DATA: White blood cell count is 8, hemoglobin is 11, platelet count is 1126, sodium is 14 0, potassium 3.5, creatinine 0.7. ASSESSMENT: Severe dehydration, questionable Clostridium difficile colitis. PLAN: 1. Check stool for Clostridium difficile, fluid resuscitation, admit for continued resuscitation. W e will allow full liquids. 2. Thrombocytosis. We will start aspirin daily until her platelets drop below a million, this is se condary to previous prolonged antibiotics. 3. I wonder she has Clostridium difficile from prolonged antibiotics. I think she will feel better with admission and rehydration, check for Clostridium difficile infection.
[2017-08-21 15:58] LABS: #Basophils 0.1 thou/uL (0.0-0.2); #Eosinphils 0.1 thou/uL (0.0-0.7); #Lymphocytes 2.1 thou/uL (1.20-3.40); #Monocytes 0.5 thou/uL (0.11-0.59); #Neutrophils 6.1 thou/uL (1.40-6.50); %Eosinophils 0.6 % (0.0-10.0); %Lymphocytes 23.8 % (21.0-51.0); %Monocytes 6.1 % (0.0-10.0); %Neutrophils 68.5 % (42.0-75.0); Anisocytosis SLIGHT = 6-15 cells (100X) (0-5/hpf); Hypochromia SLIGHT = 6-15 cells (100X) (0-5/hpf); MDiff Complete? YES; PLT Morphology Comment Appears Increased; Polychromasia SLIGHT = 2-3 cells (100X) (0-2/hpf)
[2017-08-21] MEDS ORDERED: Famotidine 20 MG TAB ONE (16:36)
[2017-08-21] MEDS ORDERED: Iopamidol 370 76% 50 ML VIAL FS ONE (17:32)
[2017-08-21] MEDS ORDERED: Iopamidol 370 76% 100 ML VIAL ONE (17:32)
[2017-08-21] MEDS ORDERED: hydrALAZINE 20 MG/ML VIAL SLOW IVP PRN (17:51)
[2017-08-21] MEDS ORDERED: Dextrose 50% Abboject 50 ML SYRINGE SLOW IVP PRN (17:51)
[2017-08-21] MEDS ORDERED: Ondansetron ODT 4 MG TAB PO PRN (17:51)
[2017-08-21] MEDS ORDERED: Dextrose 5% in Water 1,000 ML IV PRN (17:51)
[2017-08-21] MEDS ORDERED: Estradiol 0.01% Vaginal Cream 42.5 gm Tube VAG SCH (21:00)
[2017-08-21] MEDS ORDERED: Fentanyl 100 MCG/2 ML VIAL ONE (21:21)
[2017-08-21] MEDS: Famotidine/PF 20 mg/2ml Vial SLOW IVP SCH (22:51)
[2017-08-21] MEDS: Ondansetron HCl/PF 4 MG/2 ML Vial IVP PRN (22:52)
[2017-08-21] MEDS: Enoxaparin Sodium 40 MG/0.4 ML SYRINGE SC SCH (22:52)
[2017-08-21] MEDS: Promethazine HCl 25 MG/ML VIAL IM PRN (23:34)
[2017-08-22] MEDS: D5 1/2 NS w/20 mEq KCL 1,000 ML IV SCH ×5 (03:18→20:13)
[2017-08-22 05:12] VITALS: BMI 27.3
[2017-08-22] MEDS: Fentanyl 100 MCG/2 ML VIAL SLOW IVP PRN ×5 (06:40→22:11)
[2017-08-22] MEDS: Ondansetron HCl/PF 4 MG/2 ML Vial IVP PRN ×2 (06:40→18:02)
[2017-08-22 07:21] LABS: Anion Gap 12 mmol/L (10-20); BUN (Urea Nitrogen) Less than 4 mg/dL (9.8-20.1); Calc. Creatinine Clearance 122 mL/min (70-130); Calcium 8.4 mg/dL (7.8-10.44); Carbon Dioxide 21 mmol/L (22-29); Chloride 112 mmol/L (98-107); Estimated GFR-MDRD Greater than 90; Glucose 119 mg/dL (70-105); Potassium 3.5 mmol/L (3.5-5.1); Sodium 141 mmol/L (136-145)
[2017-08-22] MEDS: Saccharomyces boulardii 250 MG CAP PO SCH (09:25)
[2017-08-22] MEDS: Famotidine/PF 20 mg/2ml Vial SLOW IVP SCH ×2 (09:25→20:08)
[2017-08-22] MEDS ORDERED: Fentanyl 100 MCG/2 ML VIAL SLOW IVP PRN (09:27)
--- NOTE | 2017-08-22 09:58 | PRG ---
DATE OF SERVICE: 08/22/2017 SUBJECTIVE: Ms. Carrizales is still complaining of nausea, although it is improved. She tolerated some l iquids this morning. She is still getting nausea medicine. Her C. diff was negative. She is due fo r VAC change today. PHYSICAL EXAMINATION: VITAL SIGNS: She is afebrile. Her vital signs are stable. She has had multiple voids. ABDOMEN: Soft. Midline wound VAC. Left-sided colostomy intact. ASSESSMENT: Readmission for nausea, vomiting, and dehydration. She was on amoxicillin and her Clost ridium difficile is negative. PLAN: Supportive care. Continue IV fluids, allow full liquids as tolerated. Plan PICC line and res tart TPN tomorrow if she is not markedly improved.
[2017-08-22] MEDS: Multivitamins, Adult 10 ML, Folic Acid 1 MG, Thiamine HCl 100 MG in Dextrose 5 %-0.45 %... IV SCH ×12 (10:29→20:06)
[2017-08-22] MEDS: Ketorolac Tromethamine 30 MG/ML VIAL IVP PRN ×2 (14:45→22:08)
[2017-08-22] MEDS: Promethazine HCl 25 MG/ML VIAL IM PRN (19:34)
[2017-08-22] MEDS: Enoxaparin Sodium 40 MG/0.4 ML SYRINGE SC SCH (20:08)
[2017-08-23] MEDS: Multivitamins, Adult 10 ML, Folic Acid 1 MG, Thiamine HCl 100 MG in Dextrose 5 %-0.45 %... IV SCH ×4 (02:27)
[2017-08-23] MEDS: Fentanyl 100 MCG/2 ML VIAL SLOW IVP PRN ×4 (02:29→21:15)
[2017-08-23] MEDS: D5 1/2 NS w/20 mEq KCL 1,000 ML IV SCH ×4 (04:27→19:44)
[2017-08-23] MEDS: Ketorolac Tromethamine 30 MG/ML VIAL IVP PRN ×2 (05:57→15:46)
[2017-08-23] MEDS ORDERED: traMADol HCl 50 MG TAB PO PRN ×2 (08:55)
[2017-08-23] MEDS: Famotidine/PF 20 mg/2ml Vial SLOW IVP SCH ×2 (09:20→20:12)
[2017-08-23] MEDS: Saccharomyces boulardii 250 MG CAP PO SCH (09:23)
[2017-08-23] MEDS: Lorazepam 1 MG TAB PO PRN ×2 (09:37→20:16)
--- NOTE | 2017-08-23 15:46 | SPC ---
SONOGRAPHIC GUIDED LEFT UPPER EXTREMITY PICC PLACEMENT: HISTORY: Abdominal wound. Need for long-term IV access. FINDINGS: After explaining the procedure and answering all questions, the left upper extremity was prepped and draped in the usual sterile fashion. Sterile technique, buffered local anesthesia, sonographic eugenio nce, and a 22-gauge needle were used to carefully access the left cephalic vein. Standard technique was then used to place the tip of a 5 Tajik dual-lumen PICC so that the tip lies at the level of the cavoatrial junction. The catheter was flushed and secured externally. The patient tolerated the pr ocedure well and was returned in unchanged condition. Fluoro time time=0 seconds. IMPRESSION: Technically successful left upper extremity PICC placement. The catheter is now ready for use. POS: [facility]
[2017-08-23] MEDS: Ondansetron HCl/PF 4 MG/2 ML Vial IVP PRN (15:56)
--- NOTE | 2017-08-23 19:23 | PRG ---
DATE OF SERVICE: 08/23/2017 SUBJECTIVE: Ms. Carrizales's nausea has improved. She states she has no appetite, especially with the ho spital food. She had a PICC line placed today. She is afebrile. Vital signs are stable. Her abdom en is soft. Midline wound VAC. She does have continued pain even in between dressing changes with t he wound VAC. ASSESSMENT: Now chronic pain of her wound that is healing by secondary intention with wound VAC, com plicated by anorexia likely of chronic disease and some residual nausea likely from prolonged antibio tics. Her Clostridium difficile is negative. PLAN: We will add oral tramadol to see if I can lessen her needs for the fentanyl during the day in between dressing changes. She is nervous and anxious. We will add Ativan p.r.n. PICC line placed t ajith. As long as her nutritional intake remains high, we will avoid TPN for now. I suspect she will need a PICC line in place when she goes home for occasional need for IV fluids since she is tolerati ng more diet and having more bowel function and more comfortable, we will plan discharge.
[2017-08-23] MEDS: Enoxaparin Sodium 40 MG/0.4 ML SYRINGE SC SCH (20:14)
[2017-08-24] MEDS: D5 1/2 NS w/20 mEq KCL 1,000 ML IV SCH ×3 (05:39→21:21)
[2017-08-24] MEDS: Lorazepam 1 MG TAB PO PRN ×2 (08:33→21:16)
[2017-08-24] MEDS: Saccharomyces boulardii 250 MG CAP PO SCH (08:33)
[2017-08-24] MEDS: Famotidine/PF 20 mg/2ml Vial SLOW IVP SCH ×2 (08:34→21:16)
[2017-08-24] MEDS: Ketorolac Tromethamine 30 MG/ML VIAL IVP PRN ×2 (08:34→17:13)
[2017-08-24] MEDS: Fentanyl 100 MCG/2 ML VIAL SLOW IVP PRN ×3 (08:58→17:14)
--- NOTE | 2017-08-24 10:58 | PRG ---
DATE OF SERVICE: 08/24/2017 SUBJECTIVE: Ms. Carrizales is doing well. Her nausea is improved. Dressing changes seen with the wound VAC team. She ate more regular food yesterday. Her brought her in some outside food. She s tarted on some lorazepam p.r.n. anxiety and it has helped. PHYSICAL EXAMINATION: VITAL SIGNS: Afebrile. Vital signs are stable. ABDOMEN: Soft. She has stool in her colostomy bag. Her midline wound VAC is off. The fascia below has started to heel and has good granulation tissue. There is no infection. ASSESSMENT: History of peritonitis requiring Jackie's procedure with nausea, vomiting, dehydration , and need to be readmitted. Clostridium difficile negative, likely prolonged antibiotics causing na usea and anorexia. PLAN: Place PICC line. She will need this as an outpatient as well. P.r.n. need for fluids. Home in the next few days if tolerating more diet. Continue wound care while she is here.
[2017-08-24] MEDS: Ondansetron HCl/PF 4 MG/2 ML Vial IVP PRN (16:07)
[2017-08-24] MEDS: Enoxaparin Sodium 40 MG/0.4 ML SYRINGE SC SCH (21:16)
[2017-08-25] MEDS: Ketorolac Tromethamine 30 MG/ML VIAL IVP PRN (01:58)
[2017-08-25] MEDS: Fentanyl 100 MCG/2 ML VIAL SLOW IVP PRN (01:58)
[2017-08-25] MEDS: D5 1/2 NS w/20 mEq KCL 1,000 ML IV SCH ×3 (05:04→21:42)
[2017-08-25] MEDS: Famotidine/PF 20 mg/2ml Vial SLOW IVP SCH ×2 (08:06→20:24)
[2017-08-25] MEDS: Saccharomyces boulardii 250 MG CAP PO SCH (08:06)
[2017-08-25] MEDS: Ondansetron HCl/PF 4 MG/2 ML Vial IVP PRN ×2 (08:06→18:31)
[2017-08-25] MEDS ORDERED: HYDROcodone/Acetaminophen 10/325 mg Tablet PO PRN (08:12)
[2017-08-25] MEDS: HYDROcodone/Acetaminophen 10/325 mg Tablet PO PRN ×3 (08:57→20:33)
[2017-08-25] MEDS: Lorazepam 1 MG TAB PO PRN ×2 (10:26→20:33)
--- NOTE | 2017-08-25 15:06 | PDOC.GSPN ---
Surgery Progress Note: Subj - Subjective Patient reports: no new complaints, feels better, tolerating a regular diet Surgery Progress Note: Obj - Vital signs Vital signs: Vital Signs - Most Recent Temp Pulse Resp BP Pulse Ox 97.7 F 75 16 119/83 98 08/25/17 10:58 08/25/17 10:58 08/25/17 10:58 08/25/17 10:58 08/25/17 10:58 - Physical Exam General: no distress Abdomen: non tender, wound (vac in place, minimal stool in colostomy bag) Surgery Progress Note: Results - Labs Result Diagrams: 08/21/17 15:18 08/22/17 06:26 Lab results: Laboratory Results WBC 8.9 thou/uL (4.8-10.8) 08/21/17 15:18 RBC 3.38 mill/uL (4.20-5.40) L 08/21/17 15:18 Hgb 9.5 g/dL (12.0-16.0) L 08/21/17 15:18 Hct 29.9 % (36.0-47.0) L 08/21/17 15:18 MCV 88.4 fl (81.0-99.0) 08/21/17 15:18 MCH 28.2 pg (27.0-31.0) 08/21/17 15:18 MCHC 31.9 g/dL (32.0-36.0) L 08/21/17 15:18 RDW 14.0 % (11.5-14.5) 08/21/17 15:18 Plt Count 961 thou/uL (130-400) H* 08/21/17 15:18 MPV 6.4 fL (7.4-10.4) L 08/21/17 15:18 Neutrophils % 68.5 % (42.0-75.0) 08/21/17 15:18 Lymphocytes % 23.8 % (21.0-51.0) 08/21/17 15:18 Monocytes % 6.1 % (0.0-10.0) 08/21/17 15:18 Eosinophils % 0.6 % (0.0-10.0) 08/21/17 15:18 Basophils % 1.0 % (0.0-1.0) 08/21/17 15:18 Neutrophils # 6.1 thou/uL (1.40-6.50) 08/21/17 15:18 Lymphocytes # 2.1 thou/uL (1.20-3.40) 08/21/17 15:18 Monocytes # 0.5 thou/uL (0.11-0.59) 08/21/17 15:18 Eosinophils # 0.1 thou/uL (0.0-0.7) 08/21/17 15:18 Basophils # 0.1 thou/uL (0.0-0.2) 08/21/17 15:18 Hypochromia SLIGHT = 6-15 cells (100X) (0-5/hpf) 08/21/17 15:18 Large Platelets SLIGHT 08/21/17 12:08 Plt Morphology Comment Appears Increased H 08/21/17 15:18 Polychromasia SLIGHT = 2-3 cells (100X) (0-2/hpf) 08/21/17 15:18 Anisocytosis SLIGHT = 6-15 cells (100X) (0-5/hpf) 08/21/17 15:18 Smear Path Review 08/21/17 12:08 Sodium 141 mmol/L (136-145) 08/22/17 06:26 Potassium 3.5 mmol/L (3.5-5.1) 08/22/17 06:26 Chloride 112 mmol/L (98-107) H 08/22/17 06:26 Carbon Dioxide 21 mmol/L (22-29) L 08/22/17 06:26 Anion Gap 12 mmol/L (10-20) 08/22/17 06:26 BUN Less than 4 mg/dL (9.8-20.1) L 08/22/17 06:26 Creatinine 0.61 mg/dL (0.6-1.1) 08/22/17 06:26 Estimated GFR (MDRD) Greater than 90 08/22/17 06:26 Glucose 119 mg/dL (70-105) H 08/22/17 06:26 Calcium 8.4 mg/dL (7.8-10.44) 08/22/17 06:26 Total Bilirubin 0.4 mg/dL (0.2-1.2) 08/21/17 12:08 AST 27 U/L (5-34) 08/21/17 12:08 ALT 26 U/L (8-55) 08/21/17 12:08 Alkaline Phosphatase 164 U/L (40-150) H 08/21/17 12:08 Serum Total Protein 9.3 g/dL (6.0-8.3) H 08/21/17 12:08 Albumin 4.3 g/dL (3.5-5.0) 08/21/17 12:08 Globulin 5.0 g/dL (2.4-3.5) H 08/21/17 12:08 Albumin/Globulin Ratio 0.9 g/dL (1.2-2.2) L 08/21/17 12:08 Blood Type AB POSITIVE 08/21/17 12:08 Antibody Screen NEGATIVE 08/21/17 12:08 Surgery Progress Note: A/P - Problem (1) Peritonitis Current Visit: Yes Code(s): K65.9 - PERITONITIS, UNSPECIFIED Status: Acute Assessment and Plan: Overall doing much better. Vac change tomorrow. Likely home in next 2 to 3 days. (2) Colostomy care Current Visit: Yes Code(s): Z43.3 - ENCOUNTER FOR ATTENTION TO COLOSTOMY Status: Acute
[2017-08-25] MEDS ORDERED: Polyethylene Glycol 3350 17 GM Packet PO SCH (15:30)
[2017-08-25] MEDS: Enoxaparin Sodium 40 MG/0.4 ML SYRINGE SC SCH (20:23)
[2017-08-26] MEDS: D5 1/2 NS w/20 mEq KCL 1,000 ML IV SCH (05:26)
[2017-08-26] MEDS: Saccharomyces boulardii 250 MG CAP PO SCH (08:37)
[2017-08-26] MEDS: Lorazepam 1 MG TAB PO PRN (08:37)
[2017-08-26] MEDS: Famotidine/PF 20 mg/2ml Vial SLOW IVP SCH (08:42)
[2017-08-26] MEDS ORDERED: Polyethylene Glycol 3350 17 GM Packet PO SCH ×2 (09:00→15:07)
[2017-08-26] MEDS: HYDROcodone/Acetaminophen 10/325 mg Tablet PO PRN (09:13)
[2017-08-26 11:48] VITALS: BP 117/81; TEMP 97.9
--- NOTE | 2017-08-26 11:55 | DIS ---
DATE OF ADMISSION: 08/21/2017 DATE OF DISCHARGE: 08/26/2017 ADMITTING DIAGNOSES: Nausea, vomiting, dehydration and failure to thrive. DISCHARGE DIAGNOSIS: Nausea, vomiting, dehydration and failure to thrive. PROCEDURES: None. CONDITION AT DISCHARGE: Improved. STAFF: Dr. Bart Whiting. HOSPITAL COURSE: The patient was admitted for IV fluid resuscitation. She was severely dehydrated. She has colostomy from previous left colectomy for colon perforation. She had been placed on antibi otics to go home, these were stopped. Her C. diff was negative, mostly supportive care during her [facility] stay. On the day of discharge, she is doing well. She is tolerating regular diet. She has A tivan p.r.n. anxiety. Pain is controlled on [place]. Her wound VAC was changed this morning. The wou nd is granulating and there is no ongoing infection. She had a PICC line placed for likely need for ongoing fluid even as an outpatient. She will be discharged home today. I will see her back in [facility] in a week from Monday.
== END 2017-08-26 12:27 | disposition home or self-care (01) | DRG 640 ==
LOC: ERS 10:25 → SURG B 15:13
PROVIDERS: ADMIT Surgery; ATTEND Surgery
PROC: 02HV33Z Insertion of Infusion Device into Superior Vena Cava, Percutaneous Approach (ICD-10-PCS; principal; 2017-08-23)
DX: E86.0 Dehydration (principal); K65.9 Peritonitis, unspecified; D47.3 Essential (hemorrhagic) thrombocythemia; R62.7 Adult failure to thrive; Z88.5 Allergy status to narcotic agent; Z90.49 Acquired absence of other specified parts of digestive tract; Z43.3 Encounter for attention to colostomy
CPT/HCPCS: 36415; 36569; 74177; 80048; 80053; 85025; 85060; 86850; 86900; 86901; 87040; 87324; 87449; 96361; 96374; 96375; C1751; J1644; J1650; J1885; J2405; J2550; J3010; J3411; J7042; S0028

== ENCOUNTER 2017-08-28 08:04 | Outpatient (CLI) | payer BC, OTHER, SELFPAY ==
[2017-08-28] MEDS ORDERED: Lidocaine 2% Jelly 5 ML TUBE ONE (13:23)
[2017-08-28] MEDS ORDERED: Sodium Chloride 0.9% 15 ML NEB ONE (13:23)
== END 2017-08-28 08:05 | disposition home or self-care (01) ==
LOC: WCC 08:04
PROVIDERS: ATTEND Family Medicine
DX: T81.89XD Other complications of procedures, not elsewhere classified, subsequent encounter (principal)
CPT/HCPCS: 97606; A4218

== ENCOUNTER 2017-08-31 10:20 | Outpatient (CLI) | payer OTHER ==
[2017-08-31] MEDS ORDERED: Sodium Chloride 0.9% 15 ML NEB ONE (17:05)
[2017-08-31] MEDS ORDERED: Lidocaine 4% Topical Sol 50 ML BOT ONE (17:05)
--- NOTE | 2017-08-31 21:35 | HP ---
DATE OF SERVICE: 08/31/2017 HISTORY OF PRESENT ILLNESS: Ms. Anita Carrizales is a very pleasant 51-year-old accompanied by her who presents to the Wound Center for evaluation of a midline abdominal wound subsequent to exploratory laparotomy and abdominal washout for fecal peritonitis. At the time of surgery, Ms. Carrizales also underwent left colon resection and Jackie's procedure. Negative pressure therapy was initiated intraoperatively for a portion of the midline abdominal wound, and upon discharge from [facility], the patient was referred to the Wound Center for assistance with dressing changes of the wound VAC. PAST MEDICAL HISTORY: 1. Migraine headaches. 2. Gastroesophageal reflux disease. 3. Osteoporosis. 4. Diverticular disease. PAST SURGICAL HISTORY: 1. NICOLASA/BSO. 2. Tonsillectomy. 3. Laparoscopic left colectomy with low pelvic anastomosis for chronic sigmoid diverticulitis on 05/04/2017. 4. Laparoscopic drainage of pelvic abscess with diverting loop ileostomy on . 5. Ileostomy takedown with small bowel resection and anastomosis on 07/31/2017. 6. Exploratory laparotomy, abdominal washout, left colon resection, and Jackie's procedure. MEDICATIONS: 1. Zyrtec. 2. Zantac. 3. Ativan. 4. Hydrocodone. 5. Multivitamin. 6. Calcium. 7. Vitamin D. ALLERGIES: CODEINE. SOCIAL HISTORY: Negative for tobacco or ETOH use. FAMILY HISTORY: Negative for diabetes mellitus or coronary artery disease. REVIEW OF SYSTEMS: For obstruction at the level of the rectosigmoid demonstrated on contrast enema study on 08/04/2017, the patient underwent flexible sigmoidoscopy with dilatation. She subsequently required exploratory laparotomy and abdominal washout for fecal peritonitis in addition to left colon resection and Jackie's procedure. As stated above, negative pressure therapy was initiated intraoperatively for a portion of the midline abdominal wound. PHYSICAL EXAMINATION: VITAL SIGNS: Temperature 98.0, pulse 84, respirations 19, and blood pressure 136/81. GENERAL: A 51-year-old female lying on table in examination room in no acute distress. HEENT: Normocephalic, atraumatic. NECK: No nuchal rigidity. CHEST: Clear to auscultation. CARDIOVASCULAR: Regular rate and rhythm. ABDOMEN: Soft. A midline abdominal wound is present which is granulating. No purulent drainage is associated with the wound. No erythema of the skin surrounding the wound is present. No maceration of the skin of the periwound is noted. EXTREMITIES: No clubbing or cyanosis. NEUROLOGIC: Grossly nonfocal. ASSESSMENT AND PLAN: 1. Midline abdominal wound as described above. Negative pressure therapy will be continued with dressing changes of the wound VAC 2 times per week here in the Wound Center. The patient has a follow-up appointment with Dr. Sam, and I will see Santos Carrizales again in 1-2 weeks. No antibiotics will be prescribed today based upon the appearance of the wound. 2. Migraine headaches. 3. Gastroesophageal reflux disease. 4. Osteoporosis. 5. Diverticulitis. MTDD
== END 2017-08-31 10:21 | disposition home or self-care (01) ==
LOC: WCC 10:20
PROVIDERS: ATTEND Family Medicine
DX: T81.89XD Other complications of procedures, not elsewhere classified, subsequent encounter (principal); G43.909 Migraine, unspecified, not intractable, without status migrainosus; K21.9 Gastro-esophageal reflux disease without esophagitis; M81.0 Age-related osteoporosis without current pathological fracture; K57.92 Diverticulitis of intestine, part unspecified, without perforation or abscess without bleeding
CPT/HCPCS: 97605; 99203; A4218; G0463; J2001

== ENCOUNTER 2017-09-04 07:49 | Outpatient (CLI) | payer OTHER ==
[2017-09-04] MEDS ORDERED: Sodium Chloride 0.9% 15 ML NEB ONE (17:18)
[2017-09-04] MEDS ORDERED: Lidocaine 4% Topical Sol 50 ML BOT ONE (17:18)
== END 2017-09-04 07:50 | disposition home or self-care (01) ==
LOC: WCC 07:49
PROVIDERS: ATTEND Family Medicine
DX: T81.89XD Other complications of procedures, not elsewhere classified, subsequent encounter (principal); Z88.5 Allergy status to narcotic agent
CPT/HCPCS: 97605; A4218; J2001

== ENCOUNTER 2017-09-07 08:09 | Outpatient (CLI) | payer OTHER ==
[2017-09-08] MEDS ORDERED: Lidocaine 4% Topical Sol 50 ML BOT ONE (15:50)
[2017-09-08] MEDS ORDERED: Sodium Chloride 0.9% 15 ML NEB ONE (15:50)
== END 2017-09-07 08:10 | disposition home or self-care (01) ==
LOC: WCC 08:09
PROVIDERS: ATTEND Family Medicine
DX: T81.89XD Other complications of procedures, not elsewhere classified, subsequent encounter (principal); Z88.5 Allergy status to narcotic agent
CPT/HCPCS: 97605

== ENCOUNTER 2017-09-11 07:53 | Outpatient (CLI) | payer OTHER ==
[2017-09-11] MEDS ORDERED: Lidocaine 4% Topical Sol 50 ML BOT ONE (16:56)
[2017-09-11] MEDS ORDERED: Sodium Chloride 0.9% 15 ML NEB ONE (16:56)
== END 2017-09-11 07:54 | disposition home or self-care (01) ==
LOC: WCC 07:53
PROVIDERS: ATTEND Family Medicine
DX: T81.89XD Other complications of procedures, not elsewhere classified, subsequent encounter (principal)
CPT/HCPCS: 97605; A4218; J2001

== ENCOUNTER 2017-09-14 08:35 | Outpatient (CLI) | payer OTHER ==
--- NOTE | 2017-09-14 09:23 | PRG ---
DATE OF SERVICE: 09/14/2017 HISTORY: Ms. Anita Carrizales is a very pleasant 51-year-old accompanied by her who presents to the Wound Center for evaluation of a midline abdominal wound subsequent to exploratory laparotomy and abdominal washout for fecal peritonitis. At the time of surgery, Ms. Carrizales also underwent left colon resection and Jackie's procedure. Negative pressure therapy was initiated intraoperatively for a portion of the midline abdominal wound, and upon discharge from [facility], the patient was referred to the Wound Center for assistance with dressing changes of the wound VAC. PHYSICAL EXAMINATION: VITAL SIGNS: Temperature 98.0, pulse 86, respirations 17, blood pressure 117/ 73. ABDOMEN: Soft. A midline abdominal wound is present, which is granulating. No purulent drainage is associated with the wound. No erythema of the skin surrounding the wound is present. No maceration of the skin of the periwound is noted. ASSESSMENT AND PLAN: 1. Midline abdominal wound as described above. Negative pressure therapy will be continued with dressing changes of the wound VAC 2 times per week here in the Wound Center. The patient will be seen by Dr. Whiting in 1 week, and I will see Ms. Carrizales again in two weeks. 2. Migraine headaches. 3. Gastroesophageal reflux disease. 4. Osteoporosis. 5. Diverticulitis. MTDD
[2017-09-18] MEDS ORDERED: Lidocaine 2% Jelly 5 ML TUBE ONE (16:50)
[2017-09-18] MEDS ORDERED: Sodium Chloride 0.9% 15 ML NEB ONE (16:50)
== END 2017-09-14 08:36 | disposition home or self-care (01) ==
LOC: WCC 08:35
PROVIDERS: ATTEND Family Medicine
DX: T81.89XD Other complications of procedures, not elsewhere classified, subsequent encounter (principal); G43.909 Migraine, unspecified, not intractable, without status migrainosus; K21.9 Gastro-esophageal reflux disease without esophagitis; M81.0 Age-related osteoporosis without current pathological fracture; K57.92 Diverticulitis of intestine, part unspecified, without perforation or abscess without bleeding
CPT/HCPCS: 97605

== ENCOUNTER 2017-09-18 08:06 | Outpatient (CLI) | payer OTHER ==
[2017-09-18] MEDS ORDERED: Sodium Chloride 0.9% 15 ML NEB ONE (16:52)
== END 2017-09-18 08:07 | disposition home or self-care (01) ==
LOC: WCC 08:06
PROVIDERS: ATTEND Family Medicine
DX: T81.89XD Other complications of procedures, not elsewhere classified, subsequent encounter (principal)
CPT/HCPCS: 97605; A4218

== ENCOUNTER 2017-09-21 08:00 | Outpatient (CLI) | payer OTHER | END 2017-09-21 08:01 | disposition home or self-care (01) | LOC: WCC 08:00 | PROVIDERS: ATTEND Family Medicine | DX: T81.89XD Other complications of procedures, not elsewhere classified, subsequent encounter (principal) | CPT/HCPCS: 97602 ==

== ENCOUNTER 2017-12-05 07:47 | Outpatient (CLI) | payer OTHER ==
--- NOTE | 2017-12-05 09:39 | RAD ---
BARIUM ENEMA SINGLE COLUMN: History: Colostomy reversal. Previous diverticulitis. Evaluate rectal pouch. FINDINGS/IMPRESSION: Small amount of Gastrografin contrast was administered per rectum. There is opacification of a nondil ated rectum with no leak or flow beyond the rectosigmoid junction. The rectum is partially coiled and ascends to the level of the mid sacrum at midline. POS: [facility]
[2017-12-05] MEDS ORDERED: MD-Gastroview 120 ML BOT ONE (14:59)
== END 2017-12-05 07:48 | disposition home or self-care (01) ==
LOC: RAD 07:47
PROVIDERS: ATTEND Surgery
DX: K57.32 Diverticulitis of large intestine without perforation or abscess without bleeding (principal); K62.89 Other specified diseases of anus and rectum
CPT/HCPCS: 74280

== ENCOUNTER 2017-12-22 10:15 | Inpatient (IN) | payer OTHER ==
[2017-12-22 10:35] VITALS: BMI 28.3
[2017-12-25] MEDS ORDERED: Fentanyl 100 MCG/2 ML VIAL ONE ×3 (11:01→15:41)
[2017-12-25] MEDS ORDERED: Dexamethasone 4 mg/ml Vial ONE (11:01)
[2017-12-25] MEDS ORDERED: Midazolam HCl 2 mg/2 ml Vial ONE (11:01)
[2017-12-25] MEDS ORDERED: cefOXitin 2 GM VIAL ONE ×2 (11:37→14:45)
[2017-12-25] MEDS ORDERED: cefOXitin 2 GM in Sodium Chloride 0.9% 100 ML IVPB SCH (11:45)
[2017-12-25] MEDS ORDERED: Ketorolac Tromethamine 30 MG/ML VIAL ONE (11:50)
[2017-12-25] MEDS ORDERED: Dexamethasone 20 MG/5 ML VIAL ONE (11:50)
[2017-12-25] MEDS ORDERED: PHENYLEPHRINE-NS 100 MCG/ML 10 ML SYRINGE ONE (11:50)
[2017-12-25] MEDS ORDERED: Glycopyrrolate 0.2 MG/ML 5 ML SYRINGE ONE (11:50)
[2017-12-25] MEDS ORDERED: Lidocaine 1% PF 5 ML VIAL ONE (11:50)
[2017-12-25] MEDS ORDERED: PROPOFOL 200 MG/20 ML VIAL ONE (11:50)
[2017-12-25] MEDS ORDERED: ePHEDrine/0.9% NaCl/PF SYRINGE 50 mg/10 ml ONE (11:50)
[2017-12-25] MEDS ORDERED: Ondansetron HCl/PF 4 MG/2 ML Vial ONE ×2 (11:50→12:12)
[2017-12-25] MEDS ORDERED: HYDROmorphone 2 MG/ML VIAL SLOW IVP PRN (14:51)
[2017-12-25] MEDS ORDERED: Ondansetron HCl/PF 4 MG/2 ML Vial IVP PRN ×3 (14:51→17:24)
[2017-12-25] MEDS ORDERED: Promethazine HCl 25 MG/ML VIAL SLOW IVP PRN (14:51)
[2017-12-25] MEDS ORDERED: Promethazine HCl 25 MG/ML VIAL IM PRN ×3 (14:51→17:24)
[2017-12-25] MEDS ORDERED: Meperidine HCl/PF 25 MG/ML VIAL SLOW IVP PRN (14:51)
[2017-12-25] MEDS ORDERED: Promethazine HCl 25 MG/ML VIAL ONE (16:05)
[2017-12-25] MEDS ORDERED: Naloxone HCl 0.4 mg/ml Vial IV PRN (16:10)
[2017-12-25] MEDS ORDERED: Zolpidem Tartrate 5 MG TAB PO PRN (16:10)
[2017-12-25] MEDS ORDERED: diphenhydrAMINE 50 MG/ML VIAL IVP PRN (16:10)
[2017-12-25] MEDS ORDERED: Fentanyl 5000 MCG/250 ML CADD IVPB PRN (16:10)
[2017-12-25] MEDS ORDERED: diphenhydrAMINE 25 MG CAP PO PRN (16:10)
[2017-12-25] MEDS ORDERED: diphenhydrAMINE 50 MG/ML VIAL IM PRN (16:10)
[2017-12-25] MEDS ORDERED: Communication Order-Pharmacy FS SCH (16:15)
[2017-12-25] MEDS ORDERED: fentaNYL Citrate/PF 2,000 MCG in Sodium Chloride 0.9% 60 ML IV PRN (16:15)
[2017-12-25] MEDS ORDERED: hydrALAZINE 20 MG/ML VIAL SLOW IVP PRN (17:24)
[2017-12-25] MEDS ORDERED: Estradiol 0.01% Vaginal Cream 42.5 gm Tube VAG SCH (18:00)
[2017-12-25] MEDS: Acetaminophen 1,000 MG in Premix Bag 1 BAG IVPB SCH (18:12)
[2017-12-25] MEDS: D5 1/2 NS w/20 mEq KCL 1,000 ML IV SCH (18:13)
[2017-12-25] MEDS: Famotidine/PF 20 mg/2ml Vial SLOW IVP SCH (20:49)
[2017-12-25] MEDS: Famotidine 20 MG TAB PO SCH (21:22)
[2017-12-25] MEDS: Enoxaparin Sodium 40 MG/0.4 ML SYRINGE SC SCH (21:22)
[2017-12-25] MEDS: cefOXitin 2 GM in Sodium Chloride 0.9% 100 ML IVPB SCH (21:23)
[2017-12-26] MEDS: Acetaminophen 1,000 MG in Premix Bag 1 BAG IVPB SCH ×3 (00:43→11:52)
[2017-12-26] MEDS: D5 1/2 NS w/20 mEq KCL 1,000 ML IV SCH (03:36)
[2017-12-26 05:32] LABS: #Lymphocytes 0.9 thou/uL (1.20-3.40); #Monocytes 1.2 thou/uL (0.11-0.59); #Neutrophils 16.3 thou/uL (1.40-6.50); %Basophils 0.1 % (0.0-1.0); %Lymphocytes 4.9 % (21.0-51.0); %Monocytes 6.5 % (0.0-10.0); %Neutrophils 88.4 % (42.0-75.0); Hemoglobin 10.9 g/dL (12.0-16.0); Mean Corpuscular HGB CONC 33.2 g/dL (32.0-36.0); Mean Corpuscular Hemoglobin 29.2 pg (27.0-31.0); Mean Corpuscular Volume 87.9 fl (81.0-99.0); Mean Platelet Volume 7.3 fL (7.4-10.4); Platelet Count 296 thou/uL (130-400); Red Blood Cell (RBC) Count 3.72 mill/uL (4.20-5.40); White Blood Cell (WBC) Count 18.4 thou/uL (4.8-10.8)
[2017-12-26] MEDS: cefOXitin 2 GM in Sodium Chloride 0.9% 100 ML IVPB SCH (05:52)
[2017-12-26 05:54] LABS: Anion Gap 9 mmol/L (10-20); BUN (Urea Nitrogen) 8 mg/dL (9.8-20.1); Calc. Creatinine Clearance 109 mL/min (70-130); Calcium 8.5 mg/dL (7.8-10.44); Carbon Dioxide 21 mmol/L (22-29); Chloride 110 mmol/L (98-107); Estimated GFR-MDRD 87; Glucose 148 mg/dL (70-105); Potassium 4.4 mmol/L (3.5-5.1); Sodium 136 mmol/L (136-145)
[2017-12-26] MEDS: Famotidine 20 MG TAB PO SCH ×2 (10:45→20:44)
[2017-12-26] MEDS: Loratadine 10 MG TAB PO SCH (10:45)
[2017-12-26] MEDS: Famotidine/PF 20 mg/2ml Vial SLOW IVP SCH ×2 (11:42→20:03)
[2017-12-26] MEDS ORDERED: D5 1/2 NS w/20 mEq KCL 1,000 ML IV SCH (11:43)
--- NOTE | 2017-12-26 11:43 | PDOC.GSPN ---
Surgery Progress Note: Subj - Subjective Patient reports: tolerating liquids well Narrative: pain controlled, wants cuenca out Surgery Progress Note: Obj - Vital signs Vital signs: Vital Signs - Most Recent Temp Pulse Resp BP Pulse Ox 98.0 F 62 16 98/62 97 12/26/17 08:00 12/26/17 08:00 12/26/17 08:00 12/26/17 07:50 12/26/17 07:50 - Physical Exam General: no distress Cardiovascular: regular rate and rhythm Respiratory: clear to auscultation Abdomen: soft, nondistended Wound: healing well Surgery Progress Note: Results - Labs Result Diagrams: 12/26/17 04:52 12/26/17 04:52 Lab results: Laboratory Results - last 24 hr 12/26/17 12/26/17 04:52 04:52 WBC 18.4 H RBC 3.72 L Hgb 10.9 L Hct 32.6 L MCV 87.9 MCH 29.2 MCHC 33.2 RDW 13.0 Plt Count 296 MPV 7.3 L Neutrophils % 88.4 H Lymphocytes % 4.9 L Monocytes % 6.5 Eosinophils % 0.0 Basophils % 0.1 Neutrophils # 16.3 H Lymphocytes # 0.9 L Monocytes # 1.2 H Eosinophils # 0.0 Basophils # 0.0 Sodium 136 Potassium 4.4 Chloride 110 H Carbon Dioxide 21 L Anion Gap 9 L BUN 8 L Creatinine 0.70 Estimated GFR (MDRD) 87 Glucose 148 H Calcium 8.5 Surgery Progress Note: A/P - Problem (1) Colostomy dysfunction Current Visit: Yes Code(s): K94.03 - COLOSTOMY MALFUNCTION Status: Acute - Plan Plan: LAUREN cuenca, Advance to fulls for dinner if no nausea
[2017-12-26] MEDS: Enoxaparin Sodium 40 MG/0.4 ML SYRINGE SC SCH (20:43)
[2017-12-26] MEDS: Simethicone Chewable 80 MG TAB PO PRN (20:44)
[2017-12-27] MEDS: Simethicone Chewable 80 MG TAB PO PRN ×3 (04:11→17:40)
[2017-12-27] MEDS: Loratadine 10 MG TAB PO SCH (08:39)
[2017-12-27] MEDS: Famotidine/PF 20 mg/2ml Vial SLOW IVP SCH ×2 (08:39→19:54)
[2017-12-27] MEDS: Famotidine 20 MG TAB PO SCH ×2 (08:39→21:54)
--- NOTE | 2017-12-27 14:34 | PRG ---
DATE OF SERVICE: 12/27/2017 SUBJECTIVE: Postop day 2 colostomy takedown and incisional hernia repair. Ms. Carrizales is doing well. She is complaining of some fairly significant pain in her midline incision. No nausea. She had a s mall bowel movement. She is passing gas, urinating without difficulty. OBJECTIVE: VITAL SIGNS: Afebrile. Vital signs are stable. Drain output is serosanguineous. ABDOMEN: Soft, nontender, nondistended. Midline incision healing well without infection. ASSESSMENT: Postoperative day 2, colostomy takedown and incisional hernia repair. PLAN: Stay on full liquids and MANAGER SITE today, likely transitioned to oral pain medicine tomorrow and dis charged to home.
[2017-12-27] MEDS: Enoxaparin Sodium 40 MG/0.4 ML SYRINGE SC SCH (21:54)
[2017-12-28] MEDS: Simethicone Chewable 80 MG TAB PO PRN ×3 (00:17→13:37)
[2017-12-28] MEDS: Famotidine 20 MG TAB PO SCH (08:41)
[2017-12-28] MEDS: Loratadine 10 MG TAB PO SCH (08:41)
[2017-12-28] MEDS ORDERED: HYDROcodone/Acetaminophen 10/325 mg Tablet PO PRN (10:27)
[2017-12-28] MEDS ORDERED: Fentanyl 100 MCG/2 ML VIAL SLOW IVP PRN (11:07)
[2017-12-28] MEDS ORDERED: traMADol HCl 50 MG TAB PO PRN ×2 (11:08)
[2017-12-28] MEDS: HYDROcodone/Acetaminophen 10/325 mg Tablet PO PRN ×2 (11:18→15:33)
[2017-12-28 15:28] VITALS: BP 136/86; TEMP 98.4
--- NOTE | 2017-12-28 18:59 | DIS ---
DATE OF ADMISSION: 12/25/2017 DATE OF DISCHARGE: 12/28/2017 ADMIT DIAGNOSES: Colostomy dysfunction, history of chronic diverticulitis, incisional hernia. DISCHARGE DIAGNOSES: Colostomy dysfunction, history of chronic diverticulitis, incisional hernia. PROCEDURES: Colostomy takedown with component separation, incisional hernia repair with Strattice me sanchez. ATTENDING: Bart Whiting M.D. COMPLICATIONS: None. HOSPITAL COURSE: The patient had an uneventful postop course, immediately on a liquid diet and ambul atory. REVENUE CYCLE SPECIALIST discontinued on postop day #2. She was on full liquid diet, which she tolerated. Her wo unds were looking good. Her IVETTE output was marginal. She was discharged home. She will follow up in my office in 2 weeks for drain removal.
== END 2017-12-28 15:53 | disposition home or self-care (01) | DRG 330 ==
LOC: SURG A 12-25 10:31 → SURG B 12-25 17:01
PROVIDERS: ADMIT Surgery; ATTEND Surgery
PROC: 0DQE0ZZ Repair Large Intestine, Open Approach (ICD-10-PCS; principal; 2017-12-25)
PROC: 0WUF0JZ Supplement Abdominal Wall with Synthetic Substitute, Open Approach (ICD-10-PCS; 2017-12-25)
PROC: 0DBP4ZZ Excision of Rectum, Percutaneous Endoscopic Approach (ICD-10-PCS; 2017-12-25)
DX: K94.03 Colostomy malfunction (principal); K57.32 Diverticulitis of large intestine without perforation or abscess without bleeding; K43.2 Incisional hernia without obstruction or gangrene; K94.13 Enterostomy malfunction; Z01.812 Encounter for preprocedural laboratory examination
CPT/HCPCS: 36415; 36416; 80048; 83036; 85025; 88307; J0131; J0694; J1100; J1650; J1885; J2001; J2250; J2405; J2550; J2704; J3010; J7050; Q4100

== ENCOUNTER 2017-12-22 10:22 | Outpatient (CLI) | payer OTHER ==
[2017-12-22 11:02] LABS: #Basophils 0.1 thou/uL (0.0-0.2); #Eosinphils 0.1 thou/uL (0.0-0.7); #Lymphocytes 2.5 thou/uL (1.20-3.40); #Monocytes 0.6 thou/uL (0.11-0.59); #Neutrophils 4.4 thou/uL (1.40-6.50); %Basophils 0.7 % (0.0-1.0); %Eosinophils 1.4 % (0.0-10.0); %Lymphocytes 32.7 % (21.0-51.0); %Monocytes 7.6 % (0.0-10.0); %Neutrophils 57.6 % (42.0-75.0); Mean Corpuscular HGB CONC 34.5 g/dL (32.0-36.0); Mean Corpuscular Hemoglobin 29.1 pg (27.0-31.0); Mean Corpuscular Volume 84.4 fl (81.0-99.0); Mean Platelet Volume 6.6 fL (7.4-10.4); Platelet Count 347 thou/uL (130-400); RBC Distribution Width 13.1 % (11.5-14.5); Red Blood Cell (RBC) Count 4.46 mill/uL (4.20-5.40); White Blood Cell (WBC) Count 7.6 thou/uL (4.8-10.8)
[2017-12-22 11:08] LABS: Hemoglobin A1c 5.3 % (4.0-6.0)
[2017-12-22 11:18] LABS: Anion Gap 10 mmol/L (10-20); BUN (Urea Nitrogen) 16 mg/dL (9.8-20.1); Calc. Creatinine Clearance 0 mL/min (70-130); Calcium 9.6 mg/dL (7.8-10.44); Carbon Dioxide 25 mmol/L (22-29); Chloride 107 mmol/L (98-107); Estimated GFR-MDRD 71; Glucose 91 mg/dL (70-105); Potassium 4.4 mmol/L (3.5-5.1); Sodium 138 mmol/L (136-145)
== END 2017-12-22 10:23 | disposition home or self-care (01) ==
LOC: LABBT 10:22
PROVIDERS: ATTEND Surgery
DX: Z01.812 Encounter for preprocedural laboratory examination (principal); K94.13 Enterostomy malfunction
CPT/HCPCS: 80048; 83036; 85025

== ENCOUNTER 2018-03-21 08:07 | Outpatient (CLI) | payer OTHER | END 2018-03-21 08:08 | disposition home or self-care (01) | LOC: BICMAMMO 08:07 | PROVIDERS: ATTEND Obstetrics & Gynecology | DX: Z12.31 Encounter for screening mammogram for malignant neoplasm of breast (principal) | CPT/HCPCS: 77063; 77067 ==

== ENCOUNTER 2019-03-15 08:47 | Day surgery (SDC) | payer OTHER ==
[2019-03-14 12:16] VITALS: BMI 32.2
[2019-03-15] MEDS ORDERED: ceFAZolin Sodium (SDC) 2 GM/100 ML BAG ONE (09:20)
[2019-03-15] MEDS ORDERED: Heparin 5,000 UNITS/ML VIAL ONE (09:20)
[2019-03-15] MEDS ORDERED: Sodium Chloride 0.9% 20 ML ONE (10:30)
[2019-03-15] MEDS ORDERED: Lidocaine 1% (PF) 30 ML VIAL ONE (10:30)
[2019-03-15] MEDS ORDERED: Gentamicin 80 MG/2 ML VIAL ONE (10:30)
[2019-03-15] MEDS ORDERED: Dexamethasone 20 MG/5 ML VIAL ONE (10:30)
[2019-03-15] MEDS ORDERED: EPINEPHrine 1 MG/ML AMP ONE (10:30)
[2019-03-15] MEDS ORDERED: Bupivacaine/Epinephrine 0.25% 30 ML VIAL ONE (10:30)
[2019-03-15] MEDS ORDERED: Fentanyl 100 MCG/2 ML VIAL ONE ×2 (11:02→17:35)
[2019-03-15] MEDS ORDERED: SUGAMMADEX SODIUM 500 MG/5 ML VIAL ONE (14:22)
[2019-03-15] MEDS ORDERED: Bupivacaine 0.25% HCL 30 ML VIAL ONE (17:05)
[2019-03-15] MEDS ORDERED: Sodium Chloride 0.9% 10 ML ONE (17:36)
[2019-03-15] MEDS ORDERED: HYDROcodone/Acetaminophen 5/325 mg Tablet ONE ×2 (19:38)
--- NOTE | 2019-03-17 22:53 | OP ---
DATE OF PROCEDURE: 03/15/2019 PREOPERATIVE DIAGNOSIS: Macromastia. POSTOPERATIVE DIAGNOSIS: Macromastia. OPERATIVE FINDINGS: 1. Breast reduction began at 1210 hours and ended at 1451 hours. 2. Right breast resection, 741.8 g. 3. Left breast resection, 647.0 g. PROCEDURE: Under adequate anesthesia, the patient was prepped and draped in usual sterile fashion in supine position. Attention was first turned to the right breast. The patient has been preoperatively marked for a modified Weeks-pattern breast reduction. The Weeks pattern was incised. The nipple was incised around a 42 mm nipple Sizer. The skin of the inferior pole of the breast was de-epithelialized. Skin flaps were then raised superiorly, medially and laterally. Dermal glandular units were resected superiorly, medially and laterally. This left the patient with more breast tissue than she desired. The pedicle was reduced to the point where I did not feel like the nipple would be viable with any further resection, if the patient is still too large. The nipple was then harvested as a full-thickness skin graft. More of the pedicle was resected to meet the patient's goals. The field was copiously irrigated and inspected for meticulous hemostasis. The pedicle was secured superiorly with 2-0 PDS suture. The inverted T closure was done with 3-0 PDS suture as well as 4-0 Monocryl suture. The nipple was inset in a 42 mm nipple defect, which had been de-epithelialized. It was secured in place with 4-0 Prolene suture. Similar procedure was done on each side. At the conclusion of the breast reduction, an abdominoplasty procedure was begun. Job ID: [id number]
--- NOTE | 2019-03-17 22:59 | OP ---
DATE OF PROCEDURE: 03/15/2019 PREOPERATIVE DIAGNOSIS: Excess abdominal skin. POSTOPERATIVE DIAGNOSIS: Excess abdominal skin. PROCEDURE: Abdominoplasty. OPERATIVE FINDINGS: Patient had a previous colectomy with multiple operations and mesh repair. DESCRIPTION OF PROCEDURE: Following induction of adequate anesthesia the patient was prepped and draped in usual sterile fashion following her breast reduction. The low-transverse abdominoplasty incision was made. Dissection was carried sharply down through 0 plane just above Brittany's fascia. Dissection was then carried cephalad. Centrally, a great deal of scar tissue was encountered. Care was taken to make sure to stay superficial. No abdominal wall fascia was directly exposed. The excess skin that could be resected due to the patient's redundancy was marked and excised. The patient was placed in a flexed position. The excess skin was marked and excised. the low transverse Brittany's fascia was achieved with a 2-0 PDS suture and a 2-0 V lock suture after the field had been copiously irrigated and inspected for meticulous hemostasis. A drain had also been placed. The remainder of the closure was done with 3-0 PDS suture and 3-0 Monocryl suture. The patient tolerated the procedure well. Job ID: [id number] [facility]
== END 2019-03-15 19:55 | disposition home or self-care (01) ==
LOC: SDC 08:47
PROVIDERS: ATTEND Plastic Surgery
PROC: 0J080ZZ Alteration of Abdomen Subcutaneous Tissue and Fascia, Open Approach (ICD-10-PCS; principal; 2019-03-15)
PROC: 0H0V0ZZ Alteration of Bilateral Breast, Open Approach (ICD-10-PCS; principal; 2019-03-15)
DX: L98.7 Excessive and redundant skin and subcutaneous tissue (principal); N62 Hypertrophy of breast; K21.9 Gastro-esophageal reflux disease without esophagitis; Z98.890 Other specified postprocedural states; Z88.5 Allergy status to narcotic agent; Z79.899 Other long term (current) drug therapy
CPT/HCPCS: 88305; J0171; J0690; J1100; J1580; J1644; J2001; J3010; J3370; J3490; S0020

== ENCOUNTER 2019-05-05 17:26 | Emergency (ER) | payer OTHER, SELFPAY ==
[2019-05-05] MEDS ORDERED: Piperacillin/Tazobactam 3.375 GM VIAL ONE (17:59)
[2019-05-05] MEDS ORDERED: Sodium Chloride 0.9% 100 ML ONE (18:00)
[2019-05-05 18:13] LABS: #Basophils 0.1 thou/uL (0.0-0.2); #Eosinphils 0.1 thou/uL (0.0-0.7); #Lymphocytes 1.7 thou/uL (1.20-3.40); #Monocytes 1.3 thou/uL (0.11-0.59); #Neutrophils 9.5 thou/uL (1.40-6.50); %Basophils 0.8 % (0.0-1.0); %Eosinophils 0.7 % (0.0-10.0); %Lymphocytes 13.2 % (21.0-51.0); %Monocytes 10.2 % (0.0-10.0); %Neutrophils 75.1 % (42.0-75.0); Hemoglobin 11.7 g/dL (12.0-16.0); Mean Corpuscular HGB CONC 32.5 g/dL (32.0-36.0); Mean Corpuscular Hemoglobin 27.8 pg (27.0-31.0); Mean Corpuscular Volume 85.7 fL (78.0-98.0); Mean Platelet Volume 6.4 fL (7.4-10.4); Platelet Count 328 thou/uL (130-400); RBC Distribution Width 12.6 % (11.5-14.5); White Blood Cell (WBC) Count 12.6 thou/uL (4.8-10.8)
[2019-05-05 18:25] LABS: Anion Gap 16 mmol/L (10-20); BUN (Urea Nitrogen) 12 mg/dL (9.8-20.1); Calc. Creatinine Clearance 0 mL/min (70-130); Carbon Dioxide 21 mmol/L (22-29); Chloride 107 mmol/L (98-107); Estimated GFR-MDRD 80; Glucose 107 mg/dL (70-105); Potassium 3.9 mmol/L (3.5-5.1); Sodium 140 mmol/L (136-145)
[2019-05-05] MEDS ORDERED: Lidocaine 1% PF 5 ML VIAL ONE (18:29)
== END 2019-05-05 19:19 | disposition home or self-care (01) ==
LOC: SCSER 17:26
DX: L02.211 Cutaneous abscess of abdominal wall (principal); L03.311 Cellulitis of abdominal wall
CPT/HCPCS: 10060; 80048; 85025; 87070; 87077; 87205; 96365; J2001; J2543; J3490

== ENCOUNTER 2019-06-18 16:07 | Inpatient (IN) | payer OTHER ==
[2019-06-18] MEDS ORDERED: cloNIDine 0.1 MG TAB PO PRN (18:07)
[2019-06-18] MEDS ORDERED: Metoclopramide HCl 10 MG/2 ML VIAL IVP PRN (18:07)
[2019-06-18] MEDS ORDERED: diphenhydrAMINE 25 MG CAP PO PRN (18:07)
[2019-06-18] MEDS ORDERED: HYDROcodone/Acetaminophen 5/325 mg Tablet PO PRN (18:07)
[2019-06-18] MEDS ORDERED: Zolpidem Tartrate 5 MG TAB PO PRN (18:07)
[2019-06-18] MEDS ORDERED: Benzonatate 100 MG CAP PO PRN (18:07)
[2019-06-18] MEDS ORDERED: Labetalol HCl 100 MG/20 ML VIAL SLOW IVP PRN (18:07)
[2019-06-18] MEDS ORDERED: Cepastat Lozenges 1 LOZ PO PRN (18:07)
[2019-06-18] MEDS ORDERED: Ondansetron PF 4 MG/2 ML Vial IVP PRN (18:08)
[2019-06-18] MEDS ORDERED: Diabetic Tussin DM 5 ML UDCUP PO PRN (18:10)
[2019-06-18] MEDS ORDERED: traMADol HCl 50 MG TAB PO PRN (18:11)
[2019-06-18] MEDS ORDERED: Morphine 2 MG/ML SYRINGE SLOW IVP PRN (18:12)
[2019-06-18] MEDS ORDERED: Promethazine HCl 25 MG/ML VIAL IM PRN (18:14)
[2019-06-18] MEDS ORDERED: Piperacillin/Tazobactam 3.375 GM in Sodium Chloride 0.9% 100 ML IVPB SCH (18:15)
[2019-06-18 18:18] VITALS: BMI 32.2
[2019-06-18] MEDS: HYDROcodone/Acetaminophen 5/325 mg Tablet PO PRN (19:22)
[2019-06-18 19:31] LABS: #Basophils 0.1 thou/uL (0.0-0.2); #Lymphocytes 1.7 thou/uL (1.20-3.40); #Monocytes 0.9 thou/uL (0.11-0.59); #Neutrophils 16.1 thou/uL (1.40-6.50); %Basophils 0.3 % (0.0-1.0); %Eosinophils 0.3 % (0.0-10.0); %Lymphocytes 8.9 % (21.0-51.0); %Monocytes 4.8 % (0.0-10.0); %Neutrophils 85.8 % (42.0-75.0); Hemoglobin 12.8 g/dL (12.0-16.0); Mean Corpuscular HGB CONC 33.6 g/dL (32.0-36.0); Mean Corpuscular Hemoglobin 28.1 pg (27.0-31.0); Mean Corpuscular Volume 83.8 fL (78.0-98.0); Mean Platelet Volume 7.4 fL (7.4-10.4); Platelet Count 357 thou/uL (130-400); RBC Distribution Width 12.7 % (11.5-14.5); Red Blood Cell (RBC) Count 4.55 mill/uL (4.20-5.40); White Blood Cell (WBC) Count 18.7 thou/uL (4.8-10.8)
[2019-06-18 19:52] LABS: ALT (SGPT) 21 U/L (8-55); AST (SGOT) 18 U/L (5-34); Albumin 4.5 g/dL (3.5-5.0); Alkaline Phosphatase 103 U/L (40-110); Anion Gap 15 mmol/L (10-20); BUN (Urea Nitrogen) 14 mg/dL (9.8-20.1); Bilirubin, Total 0.5 mg/dL (0.2-1.2); Calc. Creatinine Clearance 103 mL/min (70-130); Calcium 9.4 mg/dL (7.8-10.44); Carbon Dioxide 24 mmol/L (22-29); Chloride 102 mmol/L (98-107); Estimated GFR-MDRD 71; Globulin 3.2 g/dL (2.4-3.5); Glucose 99 mg/dL (70-105); Potassium 4.1 mmol/L (3.5-5.1); Protein, Total 7.7 g/dL (6.0-8.3); Sodium 137 mmol/L (136-145)
[2019-06-18] MEDS: Vancomycin HCl 1 GM in Premix Bag 1 BAG IVPB SCH (20:10)
[2019-06-18] MEDS: Heparin 5,000 UNITS/ML VIAL SC SCH (20:22)
--- NOTE | 2019-06-18 20:22 | HP ---
CHIEF COMPLAINT: Cellulitis. HISTORY OF PRESENT ILLNESS: The patient is a 53-year-old female with history of abdominal wound. The patient's original history goes back a couple of years. She had multiple abdominal procedures. With this, a great deal of the excess skin had been created from presumably swelling despite no significant weight changes. In April, she underwent an abdominoplasty. Her postoperative course was significant for some wound healing problems. Of unknown significance, some of her sutures from the ileostomy were involved in part of the wounds. This was found during the debridement. The patient's wounds have been progressing very nicely, albeit slowly. She had been seen yesterday in clinic because one of her wounds had begun to narrow at its orifice, making packing a challenge. Under aseptic technique and local anesthesia, a small amount of skin at the orifice was removed. No other significant work was done. Today, the patient presented approximately 24 hours later with a significant cellulitis. The patient denies any fevers, chills, or malaise. She has been taking Tylenol for the pain, which could obscure a fever. PAST MEDICAL HISTORY: Gastrointestinal disease and diverticulitis. PAST SURGICAL HISTORY: multiple operations with diverituclitis, hysterectomy and breast reduction. PSYCHIATRIC HISTORY: No psychiatric history. SOCIAL HISTORY: Denies alcohol, tobacco, or illicit drug use. PHYSICAL EXAMINATION: The wounds from yesterday are largely unchanged. There are 4 small tracking wounds. The largest one on the right abdomen was freshly opened yesterday. There is no fluctuance. The tissue has good integrity for the "finger test." There is no odor or drainage. ASSESSMENT: Cellulitis of the skin. We will admit the patient for IV antibiotics, consult Dr. Acevedo. Wound cultures were taken from the wound that was debrided yesterday. Blood cultures will be taken today. White count and other lab work are pending. Job ID: [id number] [facility]
[2019-06-19] MEDS: Acetaminophen 325 MG TAB PO PRN ×2 (00:16→14:31)
[2019-06-19] MEDS: Piperacillin/Tazobactam 3.375 GM in Sodium Chloride 0.9% 100 ML IVPB SCH ×4 (00:18→17:23)
[2019-06-19] MEDS: Heparin 5,000 UNITS/ML VIAL SC SCH ×4 (06:10→21:21)
[2019-06-19 06:16] LABS: #Lymphocytes 0.8 thou/uL (1.20-3.40); #Monocytes 0.8 thou/uL (0.11-0.59); #Neutrophils 9.7 thou/uL (1.40-6.50); %Basophils 0.3 % (0.0-1.0); %Eosinophils 0.3 % (0.0-10.0); %Lymphocytes 7.4 % (21.0-51.0); %Monocytes 6.9 % (0.0-10.0); %Neutrophils 85.1 % (42.0-75.0); Hemoglobin 11.3 g/dL (12.0-16.0); Mean Corpuscular HGB CONC 33.4 g/dL (32.0-36.0); Mean Corpuscular Hemoglobin 27.9 pg (27.0-31.0); Mean Corpuscular Volume 83.6 fL (78.0-98.0); Mean Platelet Volume 7.2 fL (7.4-10.4); Platelet Count 300 thou/uL (130-400); RBC Distribution Width 12.6 % (11.5-14.5); Red Blood Cell (RBC) Count 4.03 mill/uL (4.20-5.40); White Blood Cell (WBC) Count 11.4 thou/uL (4.8-10.8)
[2019-06-19] MEDS: Vancomycin HCl 1 GM in Premix Bag 1 BAG IVPB SCH ×2 (08:13→21:21)
[2019-06-19] MEDS: Gabapentin 300 MG CAP PO SCH (21:21)
[2019-06-20] MEDS: Piperacillin/Tazobactam 3.375 GM in Sodium Chloride 0.9% 100 ML IVPB SCH ×3 (00:10→12:40)
[2019-06-20 05:01] LABS: #Basophils 0.1 thou/uL (0.0-0.2); #Eosinphils 0.1 thou/uL (0.0-0.7); #Lymphocytes 1.5 thou/uL (1.20-3.40); #Monocytes 0.7 thou/uL (0.11-0.59); #Neutrophils 4.5 thou/uL (1.40-6.50); %Eosinophils 1.9 % (0.0-10.0); %Lymphocytes 22.1 % (21.0-51.0); %Monocytes 10.2 % (0.0-10.0); %Neutrophils 64.8 % (42.0-75.0); Hemoglobin 11.9 g/dL (12.0-16.0); Mean Corpuscular HGB CONC 32.9 g/dL (32.0-36.0); Mean Corpuscular Hemoglobin 27.8 pg (27.0-31.0); Mean Corpuscular Volume 84.5 fL (78.0-98.0); Mean Platelet Volume 7.2 fL (7.4-10.4); Platelet Count 304 thou/uL (130-400); RBC Distribution Width 12.9 % (11.5-14.5); Red Blood Cell (RBC) Count 4.29 mill/uL (4.20-5.40); White Blood Cell (WBC) Count 6.9 thou/uL (4.8-10.8)
[2019-06-20] MEDS: Loperamide HCl 2 MG CAP PO PRN ×2 (05:54→17:37)
[2019-06-20 07:22] LABS: Vancomycin, Trough 11.6 ug/mL
[2019-06-20] MEDS: Vancomycin HCl 1 GM in Premix Bag 1 BAG IVPB SCH (08:00)
[2019-06-20] MEDS: Enoxaparin Sodium 40 MG/0.4 ML SYRINGE SC SCH (08:19)
[2019-06-20] MEDS: Gabapentin 300 MG CAP PO SCH ×2 (08:20→20:03)
[2019-06-20] MEDS: Saccharomyces boulardii 250 MG CAP PO SCH (08:20)
[2019-06-20] MEDS ORDERED: Vancomycin HCl 1.25 GM in Sodium Chloride 0.9% 250 ML 250 ML IVPB SCH (09:00)
[2019-06-20] MEDS ORDERED: cefTRIAXone\\ROCEPHIN 2 GM in Sodium Chloride 0.9% 100 ML IVPB SCH (18:00)
[2019-06-20] MEDS: Acetaminophen 325 MG TAB PO PRN (19:10)
--- NOTE | 2019-06-20 21:40 | CON ---
DATE OF CONSULTATION: 06/20/2019 REASON FOR CONSULTATION: Post abdominoplasty and breast reduction surgery soft tissue infection. HISTORY OF PRESENT ILLNESS: A 53-year-old who has a history of diverticulitis with prior segmental colon resection and temporary colostomy, who underwent breast reduction surgery and abdominoplasty recently in April, developed cellulitis at that time. At that time, she was seen in the emergency room, and she had wound dehiscence in the abdominal area, but no purulent drainage. The patient was treated with oral quinolones and followed up by Dr. Singh. She also was given clindamycin. The cultures from the site yielded Eikenella corrodens, which is typically a mouth organism. She improved and then now has developed recrudescence of the inflammatory process, and she was re-admitted by Dr. Singh and has been given broad-spectrum coverage with some improvement since admission. She has had 2 negative-pressure dressings placed in the abdominal area. She denies headaches, visual symptoms, sore throat, odynophagia, or dysphagia. No dyspnea or cough. The breast area is not tender, maybe very mildly tender. The abdominal area is a little bit more tender, but better since admission. No diarrhea. No genitourinary symptoms. No joint symptoms or skin disorder. No neurological symptoms. PAST MEDICAL HISTORY: Diverticulitis with segmental colon resection, temporary colostomy, prior hysterectomy, recent breast reduction surgery and abdominoplasty. SOCIAL HISTORY: Never smoker. . FAMILY HISTORY: Noncontributory. CURRENT MEDICATIONS: The patient is on: 1. Vancomycin. 2. Zolpidem. 3. Zosyn. 4. Ondansetron. 5. Reglan. 6. Labetalol. 7. Other p.r.n. medications. PHYSICAL EXAMINATION: VITAL SIGNS: Temperature max 99.9, BP 130/79, pulse 87, respirations 18 to 20, and O2 saturation 94% to 96%. SKIN: Includes the abdominal area with 2 negative-pressure dressings placed. The area is more localized to the right side. It has fairly extensive cellulitis. The breast area, however, has a very symmetric area of erythema with minimal tenderness, although the patient states that the time course of both the inframammary region and the abdominal area is the same, in other words that the skin in the inframammary breast reduction surgery site was completely normal and then became erythematous. LYMPHATICS: No lymphadenopathy. HEENT: Normal. NECK: Supple. LUNGS: Symmetric, clear breath sounds. HEART: Normal. ABDOMEN: [id number]-[id number] tender in the right side of the mid abdominal region around the abdominoplasty site. : She is voiding spontaneously. MUSCULOSKELETAL: No joint inflammatory activity. NEUROLOGIC: Nonfocal including cognitive function. LABORATORY DATA: White cell count is down from 18.7 to 6.9, hemoglobin 11.9, platelets 304. The differential has improved markedly since admission. Chemistry is normal. Microbiology with Eikenella corrodens on May 05, and now, she has Streptococcus agalactiae group B. Clostridium difficile test was negative, both antigen and toxin. Blood culture, no growth in 48 hours. IMAGING STUDIES: No imaging studies to speak of. ASSESSMENT: Post abdominoplasty cellulitis and wound infection due to group B Streptococcus. This seems to be a recrudescence of prior inflammatory process. The prior inflammatory process was associated with Eikenella corrodens, that was from the same abdominal wound. It does not appear the patient has an abscess formation. Group B Streptococcus usually does not tend to cause a lot of necrosis and abscess formation as compared with Staphylococcus aureus, for example. Likely, Eikenella and group B Streptococcus are susceptible to fairly similar range of antimicrobials. No foreign body is described with the recent procedure. We will switch her to Rocephin, and then hopefully for discharge planning, Augmentin twice daily. Job ID: [id number] MTDD
[2019-06-21] MEDS: Loperamide HCl 2 MG CAP PO PRN ×2 (05:50→13:46)
[2019-06-21] MEDS: Enoxaparin Sodium 40 MG/0.4 ML SYRINGE SC SCH (08:10)
[2019-06-21] MEDS: Gabapentin 300 MG CAP PO SCH (08:10)
[2019-06-21] MEDS: Saccharomyces boulardii 250 MG CAP PO SCH (08:10)
[2019-06-21] MEDS: HYDROcodone/Acetaminophen 5/325 mg Tablet PO PRN (14:16)
[2019-06-21] MEDS ORDERED: Loperamide HCl 2 MG CAP PO PRN (15:01)
[2019-06-21] MEDS ORDERED: Fluconazole 100 MG TAB PO SCH (15:30)
[2019-06-21 17:23] VITALS: BP 141/87; TEMP 98.2
[2019-06-21] MEDS ORDERED: cefTRIAXone\\ROCEPHIN 2 GM in Sodium Chloride 0.9% 100 ML IVPB SCH (18:00)
--- NOTE | 2019-06-22 01:53 | DIS ---
DATE OF ADMISSION: 06/18/2019 DATE OF DISCHARGE: 06/21/2019 ADMISSION DIAGNOSIS: Complex soft tissue infection to lower abdomen. DISCHARGE DIAGNOSIS: Complex soft tissue infection to lower abdomen. PROCEDURES: None. CONDITION ON DISCHARGE: Improved. STAFF: Francisco/Henok. HOSPITAL COURSE: The patient was admitted. Cultures revealed group B Streptococcus that was sensitive to most antibiotics. Dr. Acevedo saw the patient, recommended Rocephin to transition to Augmentin as an outpatient. Her inflammatory and infectious process began to clear immediately. She never developed any signs of a necrotizing infection. On 06/21/2019, I was present for the wound dressing change. She has 3 small tunnels and then a larger one on her right. There was no purulent material from any of them. AZAM with wound VAC foam is placed on the wounds and she is going to be discharged with them. The plan is for her to go home today. I called in prescriptions for Augmentin and Diflucan to [facility]. She will return to see Dr. Singh on Monday to take down this dressing that can stay present throughout the weekend. She will text or call me, if she has any issues over the weekend. Job ID: [id number]
[2019-06-22] MEDS ORDERED: Fluconazole 100 MG TAB PO SCH (09:00)
== END 2019-06-21 17:30 | disposition home or self-care (01) | DRG 863 ==
LOC: EEVIPCON 17:07 → T4-B 17:07
PROVIDERS: ADMIT Plastic Surgery; ATTEND Plastic Surgery
DX: T81.41XA Infection following a procedure, superficial incisional surgical site, initial encounter (principal); L03.311 Cellulitis of abdominal wall; B95.1 Streptococcus, group B, as the cause of diseases classified elsewhere; Z90.710 Acquired absence of both cervix and uterus; Z79.899 Other long term (current) drug therapy
CPT/HCPCS: 36415; 80053; 80202; 85025; 87040; 87070; 87077; 87205; 87324; 87449; J0696; J1644; J1650; J2270; J2543; J2765; J3370; J3490; J7050; Q0163

== ENCOUNTER 2019-06-25 16:16 | Outpatient (CLI) | payer OTHER ==
[~2019-06-25 16:16] MED LIST changes: -Heparin 1,000 UNITS/ML VIAL ONE; +Sodium Chloride 0.9% 15 ML NEB ONE
== END 2019-06-25 16:17 | disposition home or self-care (01) ==
LOC: WCC 16:16
PROVIDERS: ATTEND Family Medicine
DX: L03.311 Cellulitis of abdominal wall (principal)
CPT/HCPCS: 97602; A4218

== ENCOUNTER 2019-06-28 13:51 | Outpatient (CLI) | payer OTHER ==
[2019-06-28] MEDS ORDERED: Sodium Chloride 0.9% 15 ML NEB ONE (15:00)
[2019-06-28] MEDS ORDERED: Lidocaine 2% PF 100 mg/5 ml Syringe ONE (15:00)
== END 2019-06-28 13:52 | disposition home or self-care (01) ==
LOC: WCC 13:51
PROVIDERS: ATTEND Family Medicine
DX: T81.89XD Other complications of procedures, not elsewhere classified, subsequent encounter (principal)
CPT/HCPCS: A4218; J2001

== ENCOUNTER 2019-07-01 12:05 | Outpatient (CLI) | payer OTHER ==
[2019-07-01] MEDS ORDERED: Lidocaine 2% PF 100 mg/5 ml Syringe ONE (15:00)
[2019-07-01] MEDS ORDERED: Sodium Chloride 0.9% 15 ML NEB ONE (15:00)
== END 2019-07-01 12:06 | disposition home or self-care (01) ==
LOC: WCC 12:05
PROVIDERS: ATTEND Family Medicine
DX: T81.89XD Other complications of procedures, not elsewhere classified, subsequent encounter (principal)
CPT/HCPCS: A4218; J2001

== ENCOUNTER 2019-07-04 08:20 | Outpatient (CLI) | payer OTHER ==
--- NOTE | 2019-07-04 09:36 | PRG ---
DATE OF SERVICE: 07/04/2019 HISTORY: Ms. Anita Carrizales is a very pleasant 53-year-old accompanied by her , who presents to the Wound Center for evaluation of multiple wounds of the lower abdomen subsequent to abdominoplasty on 03/15/[address] Thad Singh. Just prior to abdominoplasty, the patient had undergone breast reduction. Since the patient was last seen in the Wound Center, Ms. Carrizales underwent colostomy reversal with low pelvic anastomosis and incisional hernia repair on 12/25/[address] Bart Whiting. The patient states that she was seen at a followup visit by Dr. Singh and wound was opened to allow for easier packing of the wound. The patient states that the following day, she required admission to [facility] for cellulitis. During the patient's hospital stay, Ms. Carrizales was seen in consultation by Dr. Haris Acevedo of Infectious Diseases and is receiving p.o. antibiotics under his direction. The patient is also receiving negative pressure therapy for the multiple wounds of her lower abdomen. The patient has no complaints today. She denies any fever or chills. PHYSICAL EXAMINATION: VITAL SIGNS: Temperature 98.0, pulse 101, respirations 19, blood pressure 135/82. ABDOMEN: Multiple wounds of the lower abdomen are present. The largest wound measures approximately 0.7 x 2.0 cm. A tunnel is associated with the wound, which is approximately 2 cm in length. The wound is granulating. No purulent drainage is associated with the wound. No erythema of the skin surrounding the wound is present. No maceration of the skin of the periwound is noted. The remaining three wounds are healing without complications or any signs of infection. ASSESSMENT AND PLAN: 1. Multiple wounds of lower abdomen as described above subsequent to abdominoplasty. Negative pressure therapy will be continued with dressing changes of the wound VAC 2 times per week here in the Wound Center. The patient will be seen by Dr. Whiting in 1 week and I will see Ms. Carrizales again as needed after evaluation by Plastic Surgery. 2. Migraine headaches. 3. Gastroesophageal reflux disease. 4. Osteoporosis. 5. Diverticulitis. Job ID: [id number]
[2019-07-04] MEDS ORDERED: Sodium Chloride 0.9% 15 ML NEB ONE (17:01)
[2019-07-04] MEDS ORDERED: Lidocaine 2% PF 5 ML VIAL ONE (17:01)
== END 2019-07-04 08:21 | disposition home or self-care (01) ==
LOC: WCC 08:20
PROVIDERS: ATTEND Family Medicine
DX: T81.89XD Other complications of procedures, not elsewhere classified, subsequent encounter (principal); K21.9 Gastro-esophageal reflux disease without esophagitis; M81.0 Age-related osteoporosis without current pathological fracture; G43.909 Migraine, unspecified, not intractable, without status migrainosus; K57.92 Diverticulitis of intestine, part unspecified, without perforation or abscess without bleeding
CPT/HCPCS: 97605; 99213; A4218; G0463; J2001

== ENCOUNTER 2019-07-08 13:26 | Outpatient (CLI) | payer OTHER ==
[2019-07-08] MEDS ORDERED: Sodium Chloride 0.9% 15 ML NEB ONE (14:17)
[2019-07-08] MEDS ORDERED: Lidocaine 2% PF 100 mg/5 ml Syringe ONE (14:17)
== END 2019-07-08 13:27 | disposition home or self-care (01) ==
LOC: WCC 13:26
PROVIDERS: ATTEND Family Medicine
DX: T81.89XD Other complications of procedures, not elsewhere classified, subsequent encounter (principal)
CPT/HCPCS: A4218; J2001

== ENCOUNTER 2019-07-10 08:11 | Outpatient (CLI) | payer OTHER ==
[2019-07-10] MEDS ORDERED: Sodium Chloride 0.9% 15 ML NEB ONE (15:35)
[2019-07-10] MEDS ORDERED: Lidocaine 2% PF 100 mg/5 ml Syringe ONE (15:35)
== END 2019-07-10 08:12 | disposition home or self-care (01) ==
LOC: WCC 08:11
PROVIDERS: ATTEND Family Medicine
DX: T81.89XD Other complications of procedures, not elsewhere classified, subsequent encounter (principal)
CPT/HCPCS: 97605; A4218; J2001

== ENCOUNTER 2019-07-15 11:59 | Outpatient (CLI) | payer OTHER ==
[2019-07-15] MEDS ORDERED: Sodium Chloride 0.9% 15 ML NEB ONE (16:52)
== END 2019-07-15 12:00 | disposition home or self-care (01) ==
LOC: WCC 11:59
PROVIDERS: ATTEND Family Medicine
DX: T81.89XD Other complications of procedures, not elsewhere classified, subsequent encounter (principal)
CPT/HCPCS: A4218

== ENCOUNTER 2019-07-18 16:07 | Outpatient (CLI) | payer OTHER | END 2019-07-18 16:08 | disposition home or self-care (01) | LOC: WCC 16:07 | PROVIDERS: ATTEND Family Medicine | DX: T81.89XD Other complications of procedures, not elsewhere classified, subsequent encounter (principal) ==

== ENCOUNTER 2019-07-22 08:11 | Outpatient (CLI) | payer OTHER ==
[2019-07-22] MEDS ORDERED: Sodium Chloride 0.9% 15 ML NEB ONE (10:38)
== END 2019-07-22 08:12 | disposition home or self-care (01) ==
LOC: WCC 08:11
PROVIDERS: ATTEND Family Medicine
DX: T81.89XD Other complications of procedures, not elsewhere classified, subsequent encounter (principal)
CPT/HCPCS: 97605; A4218

== ENCOUNTER 2019-07-29 11:44 | Outpatient (CLI) | payer OTHER ==
[2019-07-29] MEDS ORDERED: Sodium Chloride 0.9% 15 ML NEB ONE (16:31)
== END 2019-07-29 11:45 | disposition home or self-care (01) ==
LOC: WCC 11:44
PROVIDERS: ATTEND Family Medicine
DX: T81.89XD Other complications of procedures, not elsewhere classified, subsequent encounter (principal)
CPT/HCPCS: A4218

== ENCOUNTER 2019-09-17 07:35 | Outpatient (CLI) | payer OTHER ==
--- NOTE | 2019-09-17 08:34 | CT ---
CT OF THE ABDOMEN AND PELVIS WITH IV CONTRAST INDICATION: History of incisional hernias COMPARISON: CT the abdomen and pelvis with contrast dated August 21, 2017 FINDINGS: ABDOMEN: Lung bases: There is a calcified granuloma in the right middle lobe. Liver: There is stable area of focal fatty deposition near the falciform ligament. No additional foca l hepatic lesion is evident. Gallbladder: Normal appearing. Pancreas: Normal. Adrenal glands: Normal. Spleen: There are multiple small calcified granuloma within the spleen Kidneys and ureters: There is been interval development of a 4 mm nonobstructing calculus involving i nferior pole right kidney. There are tiny renal hypodensities, too small to fully characterize, but statistically are likely reflective of small cysts. No hydronephrosis is demonstrated. Vasculature: There are mild vascular calcifications seen involving the visualized vasculature. Lymph nodes:No lymphadenopathy. Free fluid in abdomen:No free fluid is evident. PELVIS: Small and large bowel: There is postsurgical change of a partial colectomy with reanastomosis of the colon to the level of the rectum without overt evidence of anastomotic breakdown. There is been interval reversal of the previously seen ventriculostomy involving the left lower quadrant abdominal wall. Appendix:Normal Bladder: Normal. Rectal and perirectal soft tissues:Normal. Reproductive structures: Surgically absent Free fluid in pelvis: No free fluid is evident. Lymphadenopathy pelvis: No lymphadenopathy is evident. Osseous structures: No acute osseous abnormality. No destructive osteolytic or osteoblastic lesion i s identified. There is scattered degenerative and osteoarthritic changes. Soft tissues:There is a supraumbilical, midline anterior abdominal wall hernia containing unobstructe d loops of small bowel measuring 7.7 x 4.9 cm in its greatest mediolateral and AP dimensions respectively. An additional lower anterior abdominal wall midline hernia is seen containing unobstruc major loops of small bowel, below the level of the umbilicus, measuring 5.7 x 5.9 cm in its greatest mediolateral and AP dimensions respectively. Small pocket of fluid measuring 3.4 cm is to the right l ateral aspect of the lower anterior abdominal wall hernia sac, within the subcutaneous tissues of the right lower quadrant abdominal wall, on images 69 of series 2. This is suspicious for small posto perative fluid collection. IMPRESSION: 1. 2 separate anterior abdominal wall incisional hernias containing unobstructed loops of small bowel . A small 3.4 cm fluid collection is seen to the right lateral aspect of the lower anterior abdominal wall hernia sac, likely reflecting a small postoperative fluid collection. 2. Interval colostomy reversal. 3. New right-sided nephrolithiasis without hydronephrosis
[2019-09-17] MEDS ORDERED: Iopamidol-370 76% 500 ML 1 ML ONE (14:38)
== END 2019-09-17 07:36 | disposition home or self-care (01) ==
LOC: BICCT 07:35
PROVIDERS: ATTEND Surgery
DX: K43.2 Incisional hernia without obstruction or gangrene (principal); N20.0 Calculus of kidney
CPT/HCPCS: 74177; Q9967

== ENCOUNTER 2019-12-17 07:58 | Outpatient (CLI) | payer OTHER ==
--- NOTE | 2019-12-17 09:46 | MMO ---
Bilateral MAMMO Bilat Screen [facility]. CLINICAL HISTORY: Patient is 54 years old and is seen for screening. The patient has no family history of breast cancer. The patient has no personal history of cancer. The patient has a history of bilateral Breast reduction in March,. VIEWS: The views performed were: bilateral craniocaudal with tomosynthesis and bilateral mediolateral oblique with tomosynthesis. FILMS COMPARED: The present examination has been compared to prior imaging studies performed at [facility] on 01/27/2015, 02/02/2016, 02/02/2017 and 03/21/2018. This study has been interpreted with the assistance of computer-aided detection. MAMMOGRAM FINDINGS: There are scattered fibroglandular densities. There are no suspicious masses, suspicious calcifications, or new areas of architectural distortion. IMPRESSION: THERE IS NO MAMMOGRAPHIC EVIDENCE OF MALIGNANCY. A ROUTINE FOLLOW-UP MAMMOGRAM IN 1 YEAR IS RECOMMENDED. THE RESULTS OF THIS EXAM WERE SENT TO THE PATIENT. ACR BI-RADS Category 1 - Negative MAMMOGRAPHY NOTE: 1. A negative mammogram report should not delay a biopsy if a dominant of clinically suspicious mass is present. 2. Approximately 10% to 15% of breast cancers are not detected by mammography. 3. Adenosis and dense breasts may obscure an underlying neoplasm. Reported by: PRERNA ABURTO MD Electonically Signed: [id number]
== END 2019-12-17 07:59 | disposition home or self-care (01) ==
LOC: BICMAMMO 07:58
PROVIDERS: ATTEND Obstetrics & Gynecology
DX: Z12.31 Encounter for screening mammogram for malignant neoplasm of breast (principal); Z98.890 Other specified postprocedural states
CPT/HCPCS: 77063; 77067

== ENCOUNTER 2020-05-28 07:39 | Outpatient (CLI) | payer OTHER ==
[2020-05-28 11:57] LABS: #Eosinphils 0.1 thou/uL (0.0-0.7); #Lymphocytes 1.4 thou/uL (1.20-3.40); #Monocytes 0.4 thou/uL (0.11-0.59); #Neutrophils 3.4 thou/uL (1.40-6.50); %Basophils 0.8 % (0.0-1.0); %Eosinophils 2.2 % (0.0-10.0); %Monocytes 6.5 % (0.0-10.0); %Neutrophils 64.4 % (42.0-75.0); Hemoglobin 13.4 g/dL (12.0-16.0); Mean Corpuscular HGB CONC 33.4 g/dL (32.0-36.0); Mean Corpuscular Hemoglobin 30.5 pg (27.0-31.0); Mean Corpuscular Volume 91.4 fL (78.0-98.0); Mean Platelet Volume 8.2 fL (7.4-10.4); Platelet Count 287 thou/uL (130-400); RBC Distribution Width 12.2 % (11.5-14.5); White Blood Cell (WBC) Count 5.3 thou/uL (4.8-10.8)
[2020-05-28 12:57] LABS: Anion Gap 14 mmol/L (10-20); BUN (Urea Nitrogen) 13 mg/dL (9.8-20.1); Calc. Creatinine Clearance 0 mL/min (70-130); Carbon Dioxide 23 mmol/L (22-29); Chloride 107 mmol/L (98-107); Estimated GFR-MDRD 72; Glucose 99 mg/dL (70-105); Potassium 4.9 mmol/L (3.5-5.1); Sodium 139 mmol/L (136-145)
[2020-05-28 18:54] LABS: SARS-CoV-2 MS2 Positive; SARS-CoV-2 N Gene Negative; SARS-CoV-2 S Gene Negative; SARS-CoV-2 by NAA Not Detected (NotDetected); SARS-CoV-2 orf1ab Negative
== END 2020-05-28 07:40 | disposition home or self-care (01) ==
LOC: LABBT 07:39
PROVIDERS: ATTEND Surgery
DX: Z01.812 Encounter for preprocedural laboratory examination (principal); Z20.828 Contact with and (suspected) exposure to other viral communicable diseases; K43.2 Incisional hernia without obstruction or gangrene
CPT/HCPCS: 80048; 85025; 87635; U0003

== ENCOUNTER 2020-05-28 08:00 | Inpatient (IN) | payer OTHER ==
[2020-06-02] MEDS ORDERED: Midazolam HCl 2 mg/2 ml Vial ONE (08:19)
[2020-06-02] MEDS ORDERED: Bupivacaine/Epinephrine 0.25% 30 ML VIAL ONE (08:53)
[2020-06-02] MEDS ORDERED: Fentanyl 250 MCG/5 ML VIAL ONE (08:53)
[2020-06-02] MEDS ORDERED: SUGAMMADEX SODIUM 200 MG/2 ML VIAL ONE (08:53)
[2020-06-02] MEDS ORDERED: Ketorolac Tromethamine 30 MG/ML VIAL ONE (09:45)
[2020-06-02] MEDS ORDERED: Dexamethasone 20 MG/5 ML VIAL ONE (09:45)
[2020-06-02] MEDS ORDERED: Rocuronium Bromide 10 MG/ML (10ML VIAL) ONE (09:45)
[2020-06-02] MEDS ORDERED: Ondansetron PF 4 MG/2 ML Vial ONE (09:45)
[2020-06-02] MEDS ORDERED: Lidocaine 1% PF 5 ML VIAL ONE (09:45)
[2020-06-02] MEDS ORDERED: EPHEDRINE 25 MG/5 ML SYRINGE ONE (09:45)
[2020-06-02] MEDS ORDERED: PROPOFOL 200 MG/20 ML VIAL ONE (09:45)
[2020-06-02] MEDS ORDERED: PHENYLEPHRINE-NS 100 MCG/ML 10 ML SYRINGE ONE (09:45)
[2020-06-02] MEDS ORDERED: Ondansetron HCl/PF 4 MG/2 ML Vial IVP PRN (10:51)
[2020-06-02] MEDS ORDERED: Promethazine HCl 25 MG/ML VIAL SLOW IVP PRN (10:51)
[2020-06-02] MEDS ORDERED: Promethazine HCl 25 MG/ML VIAL IM PRN ×3 (10:51→11:40)
[2020-06-02] MEDS ORDERED: ALPRAZolam 0.5 MG TAB PO PRN (11:17)
[2020-06-02] MEDS ORDERED: Dextrose 50% Abboject 50 ML SYRINGE SLOW IVP PRN (11:17)
[2020-06-02] MEDS ORDERED: Dextrose 5% in Water 1,000 ML IV PRN (11:17)
[2020-06-02] MEDS ORDERED: Estradiol 0.01% Vaginal Cream 42.5 gm Tube VAG SCH (11:17)
[2020-06-02] MEDS ORDERED: hydrALAZINE 20 MG/ML VIAL SLOW IVP PRN (11:17)
[2020-06-02] MEDS ORDERED: Ondansetron PF 4 MG/2 ML Vial IVP PRN ×2 (11:17→11:40)
[2020-06-02] MEDS ORDERED: Naloxone HCl 0.4 mg/ml Vial IV PRN (11:40)
[2020-06-02] MEDS ORDERED: diphenhydrAMINE 50 MG/ML VIAL IM PRN (11:40)
[2020-06-02] MEDS ORDERED: Zolpidem Tartrate 5 MG TAB PO PRN (11:40)
[2020-06-02] MEDS ORDERED: fentaNYL Citrate/PF 2,000 MCG in Sodium Chloride 0.9% 60 ML IV PRN (11:40)
[2020-06-02] MEDS ORDERED: diphenhydrAMINE 50 MG/ML VIAL IVP PRN (11:40)
[2020-06-02] MEDS ORDERED: diphenhydrAMINE 25 MG CAP PO PRN (11:40)
[2020-06-02] MEDS ORDERED: Communication Order-Pharmacy FS SCH (11:45)
[2020-06-02] MEDS ORDERED: Promethazine HCl 25 MG/ML VIAL ONE (11:47)
[2020-06-02] MEDS ORDERED: Fentanyl 100 MCG/2 ML VIAL ONE ×2 (11:53→12:20)
[2020-06-02] MEDS: D5 1/2 NS w/20 mEq KCL 1,000 ML IV SCH (17:48)
[2020-06-02 18:34] VITALS: BMI 32.2
[2020-06-02] MEDS: Famotidine/PF 20 mg/2ml Vial SLOW IVP SCH (20:38)
[2020-06-02] MEDS: Famotidine 20 MG TAB PO SCH (20:39)
[2020-06-03] MEDS: D5 1/2 NS w/20 mEq KCL 1,000 ML IV SCH ×2 (03:20→05:41)
[2020-06-03] MEDS: Famotidine 20 MG TAB PO SCH ×2 (09:23→19:59)
[2020-06-03] MEDS: Famotidine/PF 20 mg/2ml Vial SLOW IVP SCH ×2 (09:23→20:50)
[2020-06-03] MEDS: Metamucil PACK PO SCH (09:27)
[2020-06-03] MEDS ORDERED: D5 1/2 NS w/20 mEq KCL 1,000 ML IV SCH (11:33)
--- NOTE | 2020-06-03 11:48 | PRG ---
DATE OF SERVICE: 06/03/2020 SUBJECTIVE: Ms. Carrizales is complaining of pain, but it is well controlled with STOREKEEPER HELPER. She has been ambulatory. She has no nausea with the full liquids. OBJECTIVE: VITAL SIGNS: She is afebrile. Vital signs are stable. ABDOMEN: Soft. Her midline wound is healing well. The binder is in place. IVETTE is serosanguineous. ASSESSMENT: Postop day 1 component release, incisional hernia repair with mesh. PLAN: Continue STOREKEEPER HELPER today, but advance diet. The Momin is out. She has already urinated. Likely convert oral pain control in home tomorrow. Job ID: [id number]
--- NOTE | 2020-06-03 16:50 | OP ---
DATE OF PROCEDURE: 06/02/2020 PREOPERATIVE DIAGNOSIS: Large incisional hernia with diastasis of rectus muscle. POSTOPERATIVE DIAGNOSIS: Large incisional hernia with diastasis of rectus muscle. PROCEDURES PERFORMED: 1. Incisional hernia repair with mesh 20 x [address] 2. Component release, right and left. ANESTHESIA: General. ESTIMATED BLOOD LOSS: 100 mL. COMPLICATIONS: None. TECHNIQUE: The patient was taken to the operating room and laid supine on the operating room table. After general anesthetic was obtained, a Momin was placed. The abdomen was shaved, prepped, and draped in a sterile fashion. A midline incision was made in the area of previous surgery. The old scar was ellipsed out. Flaps were raised on top of the rectus muscle down to the hernia sac. Hernia sac edges were dissected down to the edges of the rectus on both sides. There was a large midline defect. Flaps were then raised all the way laterally. The hernia sac was entered and all intraabdominal adhesions were taken down. The edge of the hernia sac was dissected back to the fascia. The patient had a poor posterior fascial layer, because this is in the lower abdomen, decision was made for anterior release lateral to the on both sides. The external oblique was incised and the underlying space dissected. This allowed pulling of the rectus muscles back towards the midline under no tension. This was performed on the right and the left. Unfortunately, there was no posterior fascia or peritoneum of sufficient quality to close prior to mesh placement. 20 x [address] mesh was brought into the sterile field and placed in an underlay fashion and attached to the posterior fascia using U-stitch of Prolenes. This was done circumferentially. The rectus muscle was able to be pulled in the midline and closed using running PDS from the top and bottom and tied in the middle. The wound was irrigated using multiple liters of warm sterile solution. There was no ongoing bleeding. Two 19 round drains were brought out through separate stab incisions and left in this area. The skin incisions were closed using 3-0 Vicryl, 4-0 Monocryl, and Dermabond. The patient was sent to Recovery in stable condition. All instrument counts, needle counts, and lap counts were correct. Job ID: [id number]
[2020-06-03] MEDS ORDERED: Loratadine 10 MG TAB PO PRN (17:42)
[2020-06-03] MEDS: Ketorolac Tromethamine 30 MG/ML VIAL IVP PRN (20:03)
[2020-06-04] MEDS: Ketorolac Tromethamine 30 MG/ML VIAL IVP PRN (05:10)
[2020-06-04 07:23] VITALS: TEMP 98.5
[2020-06-04] MEDS: Famotidine 20 MG TAB PO SCH (07:57)
[2020-06-04] MEDS: Famotidine/PF 20 mg/2ml Vial SLOW IVP SCH (07:58)
[2020-06-04] MEDS: Metamucil PACK PO SCH (07:58)
[2020-06-04] MEDS ORDERED: HYDROcodone/Acetaminophen 7.5/325 mg Tablet PO PRN ×2 (09:26)
--- NOTE | 2020-06-04 09:52 | DIS ---
DATE OF ADMISSION: 06/02/2020 DATE OF DISCHARGE: 06/04/2020 ADMIT DIAGNOSIS: Incisional hernia. DISCHARGE DIAGNOSIS: Incisional hernia. PROCEDURE PERFORMED: Component incisional hernia repair with mesh by Dr. Whiting without complication. CONDITION ON DISCHARGE: Improved. STAFF: Bart Whiting MD. SUMMARY: On postop day #2, the patient is doing well. She is ambulatory. She tolerated her regular diet. She is able to void without difficulty. She was discharged to home, prescriptions for [place] and Zofran sent to [facility] on [address]. She will follow up with me Monday morning for drain removal. Job ID: [id number]
[2020-06-04 11:11] VITALS: BP 117/76
== END 2020-06-04 13:15 | disposition home or self-care (01) | DRG 355 ==
LOC: SURG A 06-02 07:10 → OBSVTOIN 06-02 07:10 → INTOOBSV 06-02 07:10 → EDSTATUS 06-02 08:00 → SJJU 06-02 17:12
PROVIDERS: ADMIT Surgery; ATTEND Surgery
PROC: 0WUF0JZ Supplement Abdominal Wall with Synthetic Substitute, Open Approach (ICD-10-PCS; principal; 2020-06-03)
DX: K43.2 Incisional hernia without obstruction or gangrene (principal); Z20.828 Contact with and (suspected) exposure to other viral communicable diseases; K58.9 Irritable bowel syndrome, unspecified; J30.2 Other seasonal allergic rhinitis; F41.9 Anxiety disorder, unspecified; Z79.899 Other long term (current) drug therapy; Z88.5 Allergy status to narcotic agent
CPT/HCPCS: 96360; 96361; G0378; J0690; J1100; J1885; J2250; J2405; J2550; J2704; J3010; J3480; J3490

== ENCOUNTER 2020-11-26 08:51 | Outpatient (CLI) | payer BC, OTHER ==
[2020-11-26] MEDS ORDERED: Magnevist 469MG/ML 20 ML VIAL ONE (13:12)
== END 2020-11-26 08:52 | disposition home or self-care (01) ==
LOC: BICMRI 08:51
PROVIDERS: ATTEND Nurse Practitioner Family
DX: R20.2 Paresthesia of skin (principal); R90.89 Other abnormal findings on diagnostic imaging of central nervous system
CPT/HCPCS: 70553; A9579

== ENCOUNTER 2020-12-17 09:22 | Outpatient (CLI) | payer BC, OTHER | END 2020-12-17 09:23 | disposition home or self-care (01) | LOC: BICMAMMO 09:22 | PROVIDERS: ATTEND Obstetrics & Gynecology | DX: Z12.31 Encounter for screening mammogram for malignant neoplasm of breast (principal); Z13.820 Encounter for screening for osteoporosis; M85.89 Other specified disorders of bone density and structure, multiple sites; Z98.890 Other specified postprocedural states | CPT/HCPCS: 77063; 77067; 77080 ==

== ENCOUNTER 2021-01-05 10:30 | Outpatient (CLI) | payer OTHER | END 2021-01-05 10:31 | disposition home or self-care (01) | LOC: BICRAD 10:30 | PROVIDERS: ATTEND Emergency Medicine | DX: N20.0 Calculus of kidney (principal) | CPT/HCPCS: 74018 ==

== ENCOUNTER 2021-04-06 12:28 | Outpatient (CLI) | payer OTHER | END 2021-04-06 12:29 | disposition home or self-care (01) | LOC: ULT 12:28 | PROVIDERS: ATTEND Nurse Practitioner Family | DX: R22.2 Localized swelling, mass and lump, trunk (principal); D17.1 Benign lipomatous neoplasm of skin and subcutaneous tissue of trunk | CPT/HCPCS: 76999 ==

== ENCOUNTER 2021-12-17 08:02 | Outpatient (CLI) | payer BC | END 2021-12-17 08:03 | disposition home or self-care (01) | LOC: BICMAMMO 08:02 | PROVIDERS: ATTEND Nurse Practitioner Family | DX: Z12.31 Encounter for screening mammogram for malignant neoplasm of breast (principal); Z98.82 Breast implant status | CPT/HCPCS: 77063; 77067 ==

== ENCOUNTER 2022-02-01 13:57 | Outpatient (CLI) | payer BC | END 2022-02-01 13:58 | disposition home or self-care (01) | LOC: BICCT 13:57 | PROVIDERS: ATTEND Surgery | DX: K43.2 Incisional hernia without obstruction or gangrene (principal); N20.0 Calculus of kidney; N28.9 Disorder of kidney and ureter, unspecified; L90.5 Scar conditions and fibrosis of skin; Z98.890 Other specified postprocedural states | CPT/HCPCS: 74177 ==

== ENCOUNTER 2023-05-15 09:18 | Outpatient (CLI) | payer BC | END 2023-05-15 09:19 | disposition home or self-care (01) | LOC: BICRAD 09:18 | PROVIDERS: ATTEND Urology | DX: N20.0 Calculus of kidney (principal) | CPT/HCPCS: 74018 ==

== ENCOUNTER 2023-06-26 08:49 | Outpatient (CLI) | payer BC | END 2023-06-26 08:50 | disposition home or self-care (01) | LOC: BICMAMMO 08:49 | PROVIDERS: ATTEND Nurse Practitioner Family | DX: R92.8 Other abnormal and inconclusive findings on diagnostic imaging of breast (principal) | CPT/HCPCS: G0279 ==

== ENCOUNTER 2024-05-16 07:46 | Outpatient (CLI) | payer BC | END 2024-05-16 07:47 | disposition home or self-care (01) | LOC: BICULT 07:46 | PROVIDERS: ATTEND Internal Medicine Gastroenterology | DX: K57.32 Diverticulitis of large intestine without perforation or abscess without bleeding (principal); K21.9 Gastro-esophageal reflux disease without esophagitis; K58.9 Irritable bowel syndrome, unspecified; R10.11 Right upper quadrant pain; K76.0 Fatty (change of) liver, not elsewhere classified | CPT/HCPCS: 76705 ==

== ENCOUNTER 2024-06-12 10:10 | Outpatient (CLI) | payer BC ==
[~2024-06-12 10:10] MED LIST changes: +Iopamidol 370 76% 100 ML VIAL ONE; -Sodium Chloride 0.9% 15 ML NEB ONE
== END 2024-06-12 10:11 | disposition home or self-care (01) ==
LOC: BICCT 10:10
PROVIDERS: ATTEND Surgery
DX: K43.2 Incisional hernia without obstruction or gangrene (principal)
CPT/HCPCS: 74177; Q9967

== ENCOUNTER 2024-07-09 13:44 | Outpatient (CLI) | payer BC | END 2024-07-09 13:45 | disposition home or self-care (01) | LOC: BICMAMMO 13:44 | PROVIDERS: ATTEND Nurse Practitioner Family | DX: Z12.31 Encounter for screening mammogram for malignant neoplasm of breast (principal); Z98.890 Other specified postprocedural states | CPT/HCPCS: 77063; 77067 ==

== ENCOUNTER 2025-08-05 08:44 | Outpatient (CLI) | payer BC | END 2025-08-05 08:45 | disposition home or self-care (01) | LOC: BICMAMMO 08:44 | PROVIDERS: ATTEND Nurse Practitioner Family | DX: Z12.31 Encounter for screening mammogram for malignant neoplasm of breast (principal); Z13.820 Encounter for screening for osteoporosis; Z98.890 Other specified postprocedural states; M85.89 Other specified disorders of bone density and structure, multiple sites; Z78.0 Asymptomatic menopausal state | CPT/HCPCS: 77063; 77067; 77080 ==